=== PATIENT | female | born 1995 | race Caucasian/White ===

== ENCOUNTER 2016-03-12 19:58 | Emergency (ER) | payer BC, OTHER ==
[2016-03-12 20:13] VITALS: RESP 20
[2016-03-12] MEDS ORDERED: IBUPROFEN 600 MG TAB PO STA (20:27)
--- NOTE | 2016-03-12 21:16 | ED ---
URI HPI - General Chief Complaint: Upper Respiratory Infection Stated Complaint: SOB/Chest Pain/Lightheaded Time Seen by Provider: 03/12/16 20:21 Source: patient, RN notes reviewed Mode of arrival: wheelchair Limitations: no limitations - History of Present Illness Initial Comments: 21-year-old female presents to the emergency department with a chief complaint of cough cold runny nose like symptoms. Patient has been sick for the last week or so. She denies any sputum production with the cough but states that she has had some shortness of breath. The patient states she has a history of asthma and she was younger but currently is not being treated for asthma. Patient states that she hasn't had any ear pain or throat pain with this. Patient states she just feels kind of weak and tired. Patient states when she cautious chest pain and back pain. No pain when she is not coughing. Patient states she was concerned because just is not getting better so she thought that she should be evaluated.Patient denies any recent back pain, abdominal pain, nausea vomiting, numbness or tingling, dysuria or hematuria, constipation or diarrhea, headaches or visual changes, or any other current symptoms. - Related Data Previous Rx's Medication Instructions Recorded Benzonatate [Tessalon Perles] 100 mg PO TID #10 cap 03/12/16 Benzonatate [Tessalon Perles] 100 mg PO TID #10 cap 03/12/16 predniSONE 50 mg PO DAILY #3 tab 03/12/16 Allergies Allergy/AdvReac Type Severity Reaction Status Date / Time Penicillins Allergy Anaphylaxis Verified 03/12/16 20:26 Review of Systems ROS Statement: Those systems with pertinent positive or pertinent negative responses have been documented in the HPI. ROS Other: All systems not noted in ROS Statement are negative. Past Medical History Past Medical History: Syncope Additional Past Medical History / Comment(s): back pain started x1 day History of Any Multi-Drug Resistant Organisms: None Reported Past Surgical History: Adenoidectomy, Tonsillectomy Additional Past Surgical History / Comment(s): oral surgery Past Psychological History: Anxiety Smoking Status: Never smoker Past Alcohol Use History: None Reported Past Drug Use History: None Reported General Exam - General Exam Comments Initial Comments: General exam: Alert, active, comfortable in no apparent distress Head: Normocephalic Eyes: Normal reaction of pupils, equal size, normal range of extraocular motion Ears: normal external ear canals, pink tympanic membranes with normal cone of light Nose: clear with pink turbinates Throat: no erythema or exudates with normal sized tonsils Neck: no masses, no nuchal rigidity Chest: no chest wall deformity Lungs: equal air entry with no crackles or wheeze CVS: S1 and S2 normal with no audible mumurs, regular rhythm Abdomen: no hepatosplenomegaly, normal bowel sounds, no guarding or rigidity Spine: no scoliosis or deformity Skin: no rashes Neurological: No focal deficits, tone is normal in all 4 extremities Limitations: no limitations Course Vital Signs 03/12/16 20:08 Temperature 97.1 F L Pulse Rate 75 Respiratory 20 Rate Blood Pressure 135/93 O2 Sat by Pulse 100 Oximetry Medical Decision Making - Medical Decision Making 21-year-old female presents for upper respiratory type symptoms. Patient does appear to have a costochondritis to the wrists due to her chest pain being when she coughs. At this time patient's chest x-ray is reviewed and negative. Extremities she is most likely is having some upper respiratory type infection. We will give her some pills for the cough. Discussed Motrin Tylenol for pain control. We did discuss return parameters and follow-up and using medication as prescribed. Patient stated that she understood all questions have been answered. She will be discharged. - Lab Data Lab Results 03/12/16 Range/Units 20:56 Influenza Type A RNA Not Detected (Not Detectd) Influenza Type B (PCR) Not Detected (Not Detectd) 03/12/16 21:19 Sinus bradycardia 55 bpm, normal axis, no atopy, no S-T depressions or elevations, Disposition Clinical Impression: Upper respiratory infection Disposition: HOME SELF-CARE Condition: Stable Instructions: Upper Respiratory Infection (ED) Additional Instructions: Please use medication as discussed. Please follow up with family doctor if symptoms have not improved over the next two days. Please return to the emergency room if your symptoms increase or worsen or for any other concerns. Prescriptions: Benzonatate [Tessalon Perles] 100 mg PO TID #10 cap Benzonatate [Tessalon Perles] 100 mg PO TID #10 cap predniSONE 50 mg PO DAILY #3 tab Referrals: Richard Guerra MD [Primary Care Provider] - 1-2 days Time of Disposition: 22:32
--- NOTE | 2016-03-12 22:24 | XR ---
EXAMINATION TYPE: XR chest 2V DATE OF EXAM: 03/12/2016 10:00 PM COMPARISON: 02/02/2015 HISTORY: Chest pain TECHNIQUE: Frontal and lateral views of the chest are obtained. FINDINGS: Heart and mediastinum are normal. Lungs are clear. Diaphragm is normal. Bony thorax and so ft tissues appear normal. IMPRESSION: Normal chest. No change.
[2016-03-12 23:14] VITALS: BP 137/84; PULSE 78; TEMP 97.8
== END 2016-03-12 23:14 | disposition home or self-care (01) ==
LOC: EC 19:58
DX: J06.9 Acute upper respiratory infection, unspecified (principal); Z88.0 Allergy status to penicillin
CPT/HCPCS: 71020; 87502; 93005; 99284

== ENCOUNTER 2016-05-11 09:40 | Emergency (ER) | payer BC ==
[2016-05-11] MEDS ORDERED: SODIUM CHLORIDE 0.9% 1,000 ML IV STA (10:30)
[2016-05-11] MEDS ORDERED: KETOROLAC 30 MG/ML 1 ML VIAL IVP STA (10:49)
--- NOTE | 2016-05-11 10:49 | ED ---
General Adult HPI - General Chief complaint: Chest Pain Stated complaint: chest pain Time Seen by Provider: 05/11/16 10:15 Source: patient, RN notes reviewed Mode of arrival: wheelchair Limitations: no limitations - History of Present Illness Initial comments: Patient is a 21-year-old female who presents emergency room today with a chief complaint of chest pain and feeling lightheaded and dizzy. Patient does admit that she had similar symptoms one week ago was seen at [facility] emergency room. Does admit that she had blood work and an x-ray obtained. States they were advised to follow-up with the roughener. States awaiting appointment. States today at work began having chest pain on the right side of her chest. Describes it as sharp. States radiated into the right arm. Does admit some numbness tingling down to her fingertips. States as she was getting here to the hospital the left pain was radiating to the left side. States pain started approximately one hour ago. She admits that she also began to feel little lightheaded and dizzy. She states that one week ago she had an episode where she felt that her color changed with this pain and dizziness. She denies any other complaints or symptoms at this time. Admits to a family history of cardiac disease. Admits to a syncopal episodes in the past. Denies any other past medical history. Denies any medications. Patient denies any recent fever, chills, shortness of breath, back pain, abdominal pain, nausea or vomiting, numbness or tingling, dysuria or hematuria, constipation or diarrhea, headaches or visual changes, or any other complaints. - Related Data Previous Rx's Medication Instructions Recorded Ibuprofen [Motrin] 600 mg PO Q6HR PRN #40 day 05/11/16 predniSONE 40 mg PO DAILY 5 Days 05/11/16 Allergies Allergy/AdvReac Type Severity Reaction Status Date / Time gabapentin [From Neurontin] Allergy Dyspnea Verified 05/11/16 09:54 Penicillins Allergy Anaphylaxis Verified 05/11/16 09:53 Review of Systems ROS Statement: Those systems with pertinent positive or pertinent negative responses have been documented in the HPI. ROS Other: All systems not noted in ROS Statement are negative. Past Medical History Past Medical History: Syncope Additional Past Medical History / Comment(s): back pain started x1 day History of Any Multi-Drug Resistant Organisms: None Reported Past Surgical History: Adenoidectomy, Tonsillectomy Additional Past Surgical History / Comment(s): oral surgery Past Psychological History: Anxiety Smoking Status: Never smoker Past Alcohol Use History: None Reported Past Drug Use History: None Reported General Exam - General Exam Comments Initial Comments: General: The patient is awake and alert, in no distress, and does not appear acutely ill. Eye: Pupils are equal, round and reactive to light, extra-ocular movements are intact. No nystagmus. There is normal conjunctiva bilaterally. No signs of icterus. Ears, nose, mouth and throat: There are moist mucous membranes and no oral lesions. Neck: The neck is supple, there is no tenderness or JVD. Cardiovascular: There is a regular rate and rhythm. No murmur, rub or gallop is appreciated. Pain reproduced on palpation to the anterior chest wall. Respiratory: Lungs are clear to auscultation, respirations are non-labored, breath sounds are equal. No wheezes, stridor, rales, or rhonchi. Gastrointestinal: Soft, non-distended, non-tender abdomen without masses or organomegaly noted. There is no rebound or guarding present. No CVA tenderness. Bowel sounds are unremarkable. Musculoskeletal: Normal ROM, no tenderness. Strength 5/5. Sensation intact. Pulses equal bilaterally 2+. Neurological: A&O x 3. CN II-XII intact, There are no obvious motor or sensory deficits. Coordination appears grossly intact. Speech is normal. Skin: Skin is warm and dry and no rashes or lesions are noted. Psychiatric: Cooperative, appropriate mood & affect, normal judgment. Limitations: no limitations Course Vital Signs 05/11/16 05/11/16 05/11/16 09:41 11:24 13:32 Temperature 97.5 F L Pulse Rate 73 65 73 Respiratory 20 16 16 Rate Blood Pressure 132/90 132/83 116/74 O2 Sat by Pulse 99 99 100 Oximetry EKG Findings - EKG Comments: EKG Findings:: EKG performed at 1043: A 12-lead EKG was performed and interpreted by me as showing the following: Rate is 63, and rhythm is normal sinus. There are normal QRS complexes and normal R-wave progression. ST segments have no elevation or depression, and DE segments appear normal. Repeat EKG performed at 1446: A 12-lead EKG was performed and interpreted by me as showing the following: Rate is 67, and rhythm is normal sinus. There are normal QRS complexes and normal R-wave progression. ST segments have no elevation or depression, and DE segments appear normal. No change from prior Medical Decision Making - Medical Decision Making Patient's labs reviewed are negative. Patient reexamined at this time expressing some pain to the anterior chest wall. It is reproducible on outpatient. Patient's EKG shows normal sinus rhythm. Repeat EKG performed shows no changes. Patient had repeat troponin which is negative. Patient given dose of steroids here in the emergency room for inflammation. Advised follow-up with family doctor and roughener. Advised to continue anti- inflammatories advised return for any other concerns. - Lab Data Result diagrams: 05/11/16 10:00 05/11/16 10:00 Lab Results 05/11/16 05/11/16 05/11/16 Range/Units 10:00 10:00 10:00 WBC 6.5 (4.0-11.0) k/uL RBC 4.75 (3.80-5.40) m/uL Hgb 14.0 (11.4-16.0) gm/dL Hct 39.7 (34.0-46.0) % MCV 83.6 (80.0-100.0) fL MCH 29.4 (25.0-35.0) pg MCHC 35.2 (31.0-37.0) g/dL RDW 13.2 (11.5-15.5) % Plt Count 215 (150-450) k/uL Neutrophils % 62 % Lymphocytes % 28 % Monocytes % 4 % Eosinophils % 3 % Basophils % 1 % Neutrophils # 4.0 (1.3-7.7) k/uL Lymphocytes # 1.8 (1.0-4.8) k/uL Monocytes # 0.3 (0-1.0) k/uL Eosinophils # 0.2 (0-0.7) k/uL Basophils # 0.0 (0-0.2) k/uL PT (9.0-12.0) sec INR (<1.1) APTT (22.0-30.0) sec Sodium 143 (137-145) mmol/L Potassium 4.3 (3.5-5.1) mmol/L Chloride 106 (98-107) mmol/L Carbon Dioxide 25 (22-30) mmol/L Anion Gap 12 mmol/L BUN 9 (7-17) mg/dL Creatinine 0.70 (0.52-1.04) mg/dL Est GFR (MDRD) Af Amer >60 (>60 ml/min/1.73 sqM) Est GFR (MDRD) Non-Af >60 (>60 ml/min/1.73 sqM) Glucose 101 H (74-99) mg/dL Calcium 9.9 (8.4-10.2) mg/dL Magnesium 1.8 (1.6-2.3) mg/dL Total Bilirubin 0.5 (0.2-1.3) mg/dL AST 17 (14-36) U/L ALT 25 (9-52) U/L Alkaline Phosphatase 58 (38-126) U/L Total Creatine Kinase 96 (30-135) U/L CK-MB (CK-2) 0.9 (0.0-2.4) ng/mL CK-MB (CK-2) Rel Index 0.9 Troponin I <0.012 (0.000-0.034) ng/mL Total Protein 7.2 (6.3-8.2) g/dL Albumin 4.4 (3.5-5.0) g/dL Urine Color Urine Appearance (Clear) Urine pH (5.0-8.0) Ur Specific [place] (1.001-1.035) Urine Protein (Negative) Urine Glucose (UA) (Negative) Urine Ketones (Negative) Urine Blood (Negative) Urine Nitrite (Negative) Urine Bilirubin (Negative) Urine Urobilinogen (<2.0) mg/dL Ur Leukocyte Esterase (Negative) Urine HCG, Qual (Not Detectd) 05/11/16 05/11/16 05/11/16 Range/Units 10:00 12:13 12:13 WBC (4.0-11.0) k/uL RBC (3.80-5.40) m/uL Hgb (11.4-16.0) gm/dL Hct (34.0-46.0) % MCV (80.0-100.0) fL MCH (25.0-35.0) pg MCHC (31.0-37.0) g/dL RDW (11.5-15.5) % Plt Count (150-450) k/uL Neutrophils % % Lymphocytes % % Monocytes % % Eosinophils % % Basophils % % Neutrophils # (1.3-7.7) k/uL Lymphocytes # (1.0-4.8) k/uL Monocytes # (0-1.0) k/uL Eosinophils # (0-0.7) k/uL Basophils # (0-0.2) k/uL PT 10.0 (9.0-12.0) sec INR 1.0 (<1.1) APTT 27.4 (22.0-30.0) sec Sodium (137-145) mmol/L Potassium (3.5-5.1) mmol/L Chloride (98-107) mmol/L Carbon Dioxide (22-30) mmol/L Anion Gap mmol/L BUN (7-17) mg/dL Creatinine (0.52-1.04) mg/dL Est GFR (MDRD) Af Amer (>60 ml/min/1.73 sqM) Est GFR (MDRD) Non-Af (>60 ml/min/1.73 sqM) Glucose (74-99) mg/dL Calcium (8.4-10.2) mg/dL Magnesium (1.6-2.3) mg/dL Total Bilirubin (0.2-1.3) mg/dL AST (14-36) U/L ALT (9-52) U/L Alkaline Phosphatase (38-126) U/L Total Creatine Kinase (30-135) U/L CK-MB (CK-2) (0.0-2.4) ng/mL CK-MB (CK-2) Rel Index Troponin I (0.000-0.034) ng/mL Total Protein (6.3-8.2) g/dL Albumin (3.5-5.0) g/dL Urine Color Light Yellow Urine Appearance Clear (Clear) Urine pH 6.5 (5.0-8.0) Ur Specific [place] 1.008 (1.001-1.035) Urine Protein Negative (Negative) Urine Glucose (UA) Negative (Negative) Urine Ketones Negative (Negative) Urine Blood Negative (Negative) Urine Nitrite Negative (Negative) Urine Bilirubin Negative (Negative) Urine Urobilinogen <2.0 (<2.0) mg/dL Ur Leukocyte Esterase Negative (Negative) Urine HCG, Qual Not Detected (Not Detectd) 05/11/16 Range/Units 13:55 WBC (4.0-11.0) k/uL RBC (3.80-5.40) m/uL Hgb (11.4-16.0) gm/dL Hct (34.0-46.0) % MCV (80.0-100.0) fL MCH (25.0-35.0) pg MCHC (31.0-37.0) g/dL RDW (11.5-15.5) % Plt Count (150-450) k/uL Neutrophils % % Lymphocytes % % Monocytes % % Eosinophils % % Basophils % % Neutrophils # (1.3-7.7) k/uL Lymphocytes # (1.0-4.8) k/uL Monocytes # (0-1.0) k/uL Eosinophils # (0-0.7) k/uL Basophils # (0-0.2) k/uL PT (9.0-12.0) sec INR (<1.1) APTT (22.0-30.0) sec Sodium (137-145) mmol/L Potassium (3.5-5.1) mmol/L Chloride (98-107) mmol/L Carbon Dioxide (22-30) mmol/L Anion Gap mmol/L BUN (7-17) mg/dL Creatinine (0.52-1.04) mg/dL Est GFR (MDRD) Af Amer (>60 ml/min/1.73 sqM) Est GFR (MDRD) Non-Af (>60 ml/min/1.73 sqM) Glucose (74-99) mg/dL Calcium (8.4-10.2) mg/dL Magnesium (1.6-2.3) mg/dL Total Bilirubin (0.2-1.3) mg/dL AST (14-36) U/L ALT (9-52) U/L Alkaline Phosphatase (38-126) U/L Total Creatine Kinase (30-135) U/L CK-MB (CK-2) (0.0-2.4) ng/mL CK-MB (CK-2) Rel Index Troponin I <0.012 (0.000-0.034) ng/mL Total Protein (6.3-8.2) g/dL Albumin (3.5-5.0) g/dL Urine Color Urine Appearance (Clear) Urine pH (5.0-8.0) Ur Specific [place] (1.001-1.035) Urine Protein (Negative) Urine Glucose (UA) (Negative) Urine Ketones (Negative) Urine Blood (Negative) Urine Nitrite (Negative) Urine Bilirubin (Negative) Urine Urobilinogen (<2.0) mg/dL Ur Leukocyte Esterase (Negative) Urine HCG, Qual (Not Detectd) Disposition Clinical Impression: Chest wall pain Disposition: HOME SELF-CARE Condition: Good Instructions: Chest Pain (ED) Additional Instructions: Please use medication as discussed. Please follow-up with family doctor in the next 2 days. Please return to emergency room if the symptoms increase or worsen or for any other concerns. Prescriptions: Ibuprofen [Motrin] 600 mg PO Q6HR PRN #40 day PRN Reason: Pain predniSONE 40 mg PO DAILY 5 Days Time of Disposition: 15:02
[2016-05-11 11:14] LABS: Basophils % (A) 1 %; CH 29.7; CHCM 35.7; Eosinophils # (A) 0.2 k/uL (0-0.7); Eosinophils % (A) 3 %; HCT 39.7 % (34.0-46.0); HDW 3.15; Luc # (Auto) 0.16; Luc % (Auto) 3; Lymphocytes # (A) 1.8 k/uL (1.0-4.8); Lymphocytes % (A) 28 %; MCH 29.4 pg (25.0-35.0); MCHC 35.2 g/dL (31.0-37.0); MCV 83.6 fL (80.0-100.0); Monocytes # (A) 0.3 k/uL (0-1.0); Monocytes % (A) 4 %; Neutrophils % (A) 62 %; RBC 4.75 m/uL (3.80-5.40); RDW 13.2 % (11.5-15.5); WBC 6.5 k/uL (4.0-11.0); WBC (Perox) 6.63
[2016-05-11 11:24] LABS: ALT 25 U/L (9-52); AST 17 U/L (14-36); Alkaline Phosphatase 58 U/L (38-126); Anion Gap 12 mmol/L; Blood Urea Nitrogen 9 mg/dL (7-17); Calcium 9.9 mg/dL (8.4-10.2); Carbon Dioxide 25 mmol/L (22-30); Chloride 106 mmol/L (98-107); Glucose 101 mg/dL (74-99); Magnesium 1.8 mg/dL (1.6-2.3); Non-African American GFR(MDRD) >60 (>60 ml/min/1.73 sqM); Partial Thromboplastin Time 27.4 sec (22.0-30.0); Potassium 4.3 mmol/L (3.5-5.1); Sodium 143 mmol/L (137-145); Total Bilirubin 0.5 mg/dL (0.2-1.3); Total Protein 7.2 g/dL (6.3-8.2)
--- NOTE | 2016-05-11 11:37 | XR ---
EXAMINATION TYPE: XR chest 2V DATE OF EXAM: 05/11/2016 11:34 AM COMPARISON: Prior chest x-ray February HISTORY: Chest pain TECHNIQUE: Frontal and lateral views of the chest are obtained. FINDINGS: There is no focal air space opacity, pleural effusion, or pneumothorax seen. The cardiac silhouette size is within normal limits. There are overlying cardiac leads. There is mild spinal cu rvature. The osseous structures are intact. IMPRESSION: No acute cardiopulmonary process.
[2016-05-11 11:40] LABS: Creatine Kinase 96 U/L (30-135)
[2016-05-11 11:53] LABS: Creatine Kinase MB 0.9 ng/mL (0.0-2.4); Troponin I <0.012 ng/mL (0.000-0.034)
[2016-05-11 12:21] LABS: Appearance,Urine Clear (Clear); Bilirubin,Urine Negative (Negative); Glucose,Urine (UA) Negative (Negative); Ketones,Urine Negative (Negative); Leukocyte Esterase,Urine Negative (Negative); Nitrite,Urine Negative (Negative); PH, Urine 6.5 (5.0-8.0); Protein,Urine Negative (Negative); Specific Gravity,Urine 1.008 (1.001-1.035); UA Billing (MACRO vs. MICRO) CHEM; Urobilinogen,Urine <2.0 mg/dL (<2.0)
[2016-05-11] MEDS ORDERED: methylPREDNISolone SOD SUCCI 125 MG/2 ML VIAL IV STA (15:02)
[2016-05-11 15:23] VITALS: BP 143/89; PULSE 67; RESP 18; TEMP 98.7
== END 2016-05-11 15:23 | disposition home or self-care (01) ==
LOC: EC 09:40
DX: R07.89 Other chest pain (principal); R42 Dizziness and giddiness; R20.0 Anesthesia of skin; R20.2 Paresthesia of skin; Z88.0 Allergy status to penicillin; Z88.8 Allergy status to other drugs, medicaments and biological substances; Z82.49 Family history of ischemic heart disease and other diseases of the circulatory system
CPT/HCPCS: 36415; 93005; 80053; 82550; 82553; 83735; 84484; 85025; 85610; 85730; 81003; 81025; 71020; 99285; 96374; 96375; 96361 ×2; J2930; J1885

== ENCOUNTER 2016-11-17 10:43 | Emergency (ER) | payer BC, OTHER ==
[2016-11-17 11:00] VITALS: TEMP 98
[2016-11-17] MEDS ORDERED: SODIUM CHLORIDE 0.9% 1,000 ML IV STA (11:13)
--- NOTE | 2016-11-17 11:28 | ED ---
General Adult HPI - General Chief complaint: Abdominal Pain Stated complaint: abdominal pain (5 wks ) Time Seen by Provider: 11/17/16 11:08 Source: patient, RN notes reviewed Mode of arrival: ambulatory Limitations: no limitations - History of Present Illness Initial comments: 21-year-old female presents to the emergency Department chief complaint of epigastric abdominal discomfort after vomiting. Patient states that she woke up this morning and vomited once. She is early denies any lower abdominal pain any vaginal bleeding or cramping. She is a . Patient states she was concerned because and she vomited it seemed dark in color he thought maybe be flaccid she thought that she should be seen. Patient has not had vomiting since. She does admit to some mild nausea. Patient states that she is not currently having any other symptoms. Patient denies any recent fever , chills, shortness of breath, chest pain, back pain,numbness or tingling, dysuria or hematuria, constipation or diarrhea, headaches or visual changes, or any other current symptoms. - Related Data Home Medications Medication Instructions Recorded Confirmed [id number] Acid 2 cap PO DAILY 11/17/16 11/17/16 [-U Capsule (formulary)] Previous Rx's Medication Instructions Recorded Nitrofurantoin Macrocrystal 100 mg PO BID #14 cap 11/17/16 [Macrodantin] Allergies Allergy/AdvReac Type Severity Reaction Status Date / Time gabapentin [From Neurontin] Allergy Dyspnea Verified 11/17/16 11:11 Penicillins Allergy Anaphylaxis Verified 11/17/16 11:11 Review of Systems ROS Statement: Those systems with pertinent positive or pertinent negative responses have been documented in the HPI. ROS Other: All systems not noted in ROS Statement are negative. Past Medical History Past Medical History: Syncope Additional Past Medical History / Comment(s): back pain started x1 day History of Any Multi-Drug Resistant Organisms: None Reported Past Surgical History: Adenoidectomy, Tonsillectomy Additional Past Surgical History / Comment(s): oral surgery Past Psychological History: Anxiety Smoking Status: Never smoker Past Alcohol Use History: None Reported Past Drug Use History: None Reported General Exam - General Exam Comments Initial Comments: General: The patient is awake and alert, in no distress, and does not appear acutely ill. Eye: Pupils are equal, round and reactive to light, extra-ocular movements are intact; there is normal conjunctiva bilaterally. No signs of icterus. Ears, nose, mouth and throat: There are moist mucous membranes. Neck: The neck is supple, there is no tenderness. Cardiovascular: There is a regular rate and rhythm. No murmur, rub or gallop is appreciated. Respiratory: Lungs are clear to auscultation, respirations are non-labored, breath sounds are equal. No wheezes, stridor, rales, or rhonchi. Gastrointestinal: Soft, non-distended, non-tender abdomen without masses or organomegaly noted. There is no rebound or guarding present. No CVA tenderness. Bowel sounds are unremarkable. Back: There is no tenderness to palpation in the midline. There is no obvious deformity. No rashes noted. Musculoskeletal: Normal ROM, no tenderness, There is no pedal edema. There is no calf tenderness or swelling. Sensation intact. Pulses equal bilaterally 2+. Neurological: CN II-XII intact, There are no obvious motor or sensory deficits. Coordination appears grossly intact. Speech is normal. Skin: Skin is warm and dry and no rashes or lesions are noted. Psychiatric: Cooperative, appropriate mood & affect, normal judgment. Limitations: no limitations Course Vital Signs 11/17/16 10:57 Temperature 98 F Pulse Rate 72 Respiratory 18 Rate Blood Pressure 135/98 O2 Sat by Pulse 100 Oximetry Medical Decision Making - Medical Decision Making 21-year-old female presents for nausea vomiting in . This time patient 's blood work is reviewed there is concern for UTI which could explain the patient nausea. At this time we'll put her on antibiotics. We discussed follow -up with her OB and return parameters all patient's questions. She states she understood and she is in agreement plan. This time she'll be discharged. - Lab Data Result diagrams: 11/17/16 11:40 11/17/16 11:40 Lab Results 11/17/16 11/17/16 11/17/16 Range/Units 11:40 11:40 11:40 WBC 7.2 (4.0-11.0) k/uL RBC 4.61 (3.80-5.40) m/uL Hgb 13.7 (11.4-16.0) gm/dL Hct 39.9 (34.0-46.0) % MCV 86.5 (80.0-100.0) fL MCH 29.7 (25.0-35.0) pg MCHC 34.3 (31.0-37.0) g/dL RDW 13.7 (11.5-15.5) % Plt Count 215 (150-450) k/uL Neutrophils % 68 % Lymphocytes % 24 % Monocytes % 4 % Eosinophils % 2 % Basophils % 0 % Neutrophils # 4.9 (1.3-7.7) k/uL Lymphocytes # 1.7 (1.0-4.8) k/uL Monocytes # 0.3 (0-1.0) k/uL Eosinophils # 0.2 (0-0.7) k/uL Basophils # 0.0 (0-0.2) k/uL Sodium 137 (137-145) mmol/L Potassium 3.8 (3.5-5.1) mmol/L Chloride 107 (98-107) mmol/L Carbon Dioxide 19 L (22-30) mmol/L Anion Gap 11 mmol/L BUN 7 (7-17) mg/dL Creatinine 0.62 (0.52-1.04) mg/dL Est GFR (MDRD) Af Amer >60 (>60 ml/min/1.73 sqM) Est GFR (MDRD) Non-Af >60 (>60 ml/min/1.73 sqM) Glucose 89 (74-99) mg/dL Calcium 9.3 (8.4-10.2) mg/dL Total Bilirubin 0.7 (0.2-1.3) mg/dL AST 15 (14-36) U/L ALT 31 (9-52) U/L Alkaline Phosphatase 53 (38-126) U/L Total Protein 6.7 (6.3-8.2) g/dL Albumin 4.0 (3.5-5.0) g/dL HCG, Quant 44099.2 mIU/mL Urine Color Yellow Urine Appearance Cloudy H (Clear) Urine pH 7.5 (5.0-8.0) Ur Specific [place] 1.017 (1.001-1.035) Urine Protein Trace H (Negative) Urine Glucose (UA) Negative (Negative) Urine Ketones Negative (Negative) Urine Blood Negative (Negative) Urine Nitrite Negative (Negative) Urine Bilirubin Negative (Negative) Urine Urobilinogen <2.0 (<2.0) mg/dL Ur Leukocyte Esterase Large H (Negative) Urine RBC 7 H (0-5) /hpf Urine WBC 3 (0-5) /hpf Ur Squamous Epith Cells 11 H (0-4) /hpf Urine Bacteria Rare H (None) /hpf Urine Mucus Rare H (None) /hpf Blood Type Blood Type Recheck 11/17/16 Range/Units 11:40 WBC (4.0-11.0) k/uL RBC (3.80-5.40) m/uL Hgb (11.4-16.0) gm/dL Hct (34.0-46.0) % MCV (80.0-100.0) fL MCH (25.0-35.0) pg MCHC (31.0-37.0) g/dL RDW (11.5-15.5) % Plt Count (150-450) k/uL Neutrophils % % Lymphocytes % % Monocytes % % Eosinophils % % Basophils % % Neutrophils # (1.3-7.7) k/uL Lymphocytes # (1.0-4.8) k/uL Monocytes # (0-1.0) k/uL Eosinophils # (0-0.7) k/uL Basophils # (0-0.2) k/uL Sodium (137-145) mmol/L Potassium (3.5-5.1) mmol/L Chloride (98-107) mmol/L Carbon Dioxide (22-30) mmol/L Anion Gap mmol/L BUN (7-17) mg/dL Creatinine (0.52-1.04) mg/dL Est GFR (MDRD) Af Amer (>60 ml/min/1.73 sqM) Est GFR (MDRD) Non-Af (>60 ml/min/1.73 sqM) Glucose (74-99) mg/dL Calcium (8.4-10.2) mg/dL Total Bilirubin (0.2-1.3) mg/dL AST (14-36) U/L ALT (9-52) U/L Alkaline Phosphatase (38-126) U/L Total Protein (6.3-8.2) g/dL Albumin (3.5-5.0) g/dL HCG, Quant mIU/mL Urine Color Urine Appearance (Clear) Urine pH (5.0-8.0) Ur Specific [place] (1.001-1.035) Urine Protein (Negative) Urine Glucose (UA) (Negative) Urine Ketones (Negative) Urine Blood (Negative) Urine Nitrite (Negative) Urine Bilirubin (Negative) Urine Urobilinogen (<2.0) mg/dL Ur Leukocyte Esterase (Negative) Urine RBC (0-5) /hpf Urine WBC (0-5) /hpf Ur Squamous Epith Cells (0-4) /hpf Urine Bacteria (None) /hpf Urine Mucus (None) /hpf Blood Type A Negative Blood Type Recheck No Disposition Clinical Impression: Nausea & vomiting, UTI (urinary tract infection) Disposition: HOME SELF-CARE Condition: Stable Instructions: Urinary Tract Infection in Women (ED), Nausea and Vomiting in (ED) Additional Instructions: Please use medication as discussed. Please follow up with family doctor if symptoms have not improved over the next two days. Please return to the emergency room if your symptoms increase or worsen or for any other concerns. Prescriptions: Nitrofurantoin Macrocrystal [Macrodantin] 100 mg PO BID #14 cap Referrals: Richard Guerra MD [Primary Care Provider] - 1-2 days Time of Disposition: 12:56
[2016-11-17 11:57] LABS: Basophils % (A) 0 %; CH 29.9; CHCM 34.7; Eosinophils # (A) 0.2 k/uL (0-0.7); Eosinophils % (A) 2 %; HCT 39.9 % (34.0-46.0); HDW 2.93; HGB 13.7 gm/dL (11.4-16.0); Luc # (Auto) 0.11; Luc % (Auto) 2; Lymphocytes # (A) 1.7 k/uL (1.0-4.8); Lymphocytes % (A) 24 %; MCH 29.7 pg (25.0-35.0); MCHC 34.3 g/dL (31.0-37.0); MCV 86.5 fL (80.0-100.0); Mean Platelet Volume 7.9; Monocytes # (A) 0.3 k/uL (0-1.0); Monocytes % (A) 4 %; Neutrophils # (A) 4.9 k/uL (1.3-7.7); Neutrophils % (A) 68 %; RBC 4.61 m/uL (3.80-5.40); RDW 13.7 % (11.5-15.5); WBC 7.2 k/uL (4.0-11.0); WBC (Perox) 7.35
[2016-11-17 12:06] LABS: ALT 31 U/L (9-52); AST 15 U/L (14-36); Alkaline Phosphatase 53 U/L (38-126); Anion Gap 11 mmol/L; Blood Urea Nitrogen 7 mg/dL (7-17); Calcium 9.3 mg/dL (8.4-10.2); Carbon Dioxide 19 mmol/L (22-30); Chloride 107 mmol/L (98-107); Glucose 89 mg/dL (74-99); Non-African American GFR(MDRD) >60 (>60 ml/min/1.73 sqM); Potassium 3.8 mmol/L (3.5-5.1); Sodium 137 mmol/L (137-145); Total Bilirubin 0.7 mg/dL (0.2-1.3); Total Protein 6.7 g/dL (6.3-8.2)
[2016-11-17 12:08] LABS: Appearance,Urine Cloudy (Clear); Bacteria,Urine Rare /hpf; Bilirubin,Urine Negative (Negative); Glucose,Urine (UA) Negative (Negative); Ketones,Urine Negative (Negative); Leukocyte Esterase,Urine Large (Negative); Mucus,Urine Rare /hpf; Nitrite,Urine Negative (Negative); PH, Urine 7.5 (5.0-8.0); Particle Count 12760; Protein,Urine Trace (Negative); RBC,Urine 7 /hpf (0-5); Specific Gravity,Urine 1.017 (1.001-1.035); Squamous Epithelial Cell,Urine 11 /hpf (0-4); UA Billing (MACRO vs. MICRO) MICRO; Urobilinogen,Urine <2.0 mg/dL (<2.0); WBC,Urine 3 /hpf (0-5)
[2016-11-17 13:18] VITALS: BP 129/86; PULSE 70; RESP 16
== END 2016-11-17 13:17 | disposition home or self-care (01) ==
LOC: EC 10:43
DX: O21.9 Vomiting of pregnancy, unspecified (principal); O23.41 Unspecified infection of urinary tract in pregnancy, first trimester; Z79.899 Other long term (current) drug therapy; Z88.0 Allergy status to penicillin; Z88.8 Allergy status to other drugs, medicaments and biological substances; Z3A.01 Less than 8 weeks gestation of pregnancy
CPT/HCPCS: 36415; 80053; 81001; 84702; 85025; 86900; 86901; 87086; 96360; 96361; 99284

== ENCOUNTER 2017-01-02 23:03 | Emergency (ER) | payer BC ==
[2017-01-02 23:22] VITALS: RESP 18
[2017-01-02] MEDS ORDERED: SODIUM CHLORIDE 0.9% 1,000 ML IV STA (23:34)
[2017-01-02] MEDS ORDERED: ACETAMINOPHEN TAB 325 MG TAB PO STA (23:42)
[2017-01-02 23:59] LABS: Basophils % (A) 0 %; CHCM 34.2; Eosinophils # (A) 0.1 k/uL (0-0.7); Eosinophils % (A) 1 %; HCT 34.3 % (34.0-46.0); HDW 2.99; HGB 11.7 gm/dL (11.4-16.0); Luc # (Auto) 0.06; Luc % (Auto) 1; Lymphocytes # (A) 1.4 k/uL (1.0-4.8); Lymphocytes % (A) 18 %; MCH 29.1 pg (25.0-35.0); MCHC 34.2 g/dL (31.0-37.0); Mean Platelet Volume 8.8; Monocytes # (A) 0.3 k/uL (0-1.0); Monocytes % (A) 4 %; Neutrophils # (A) 5.9 k/uL (1.3-7.7); Neutrophils % (A) 76 %; RBC 4.04 m/uL (3.80-5.40); RDW 14.4 % (11.5-15.5); WBC 7.7 k/uL (4.0-11.0); WBC (Perox) 7.98
[2017-01-03 00:07] LABS: ALT 31 U/L (9-52); AST 15 U/L (14-36); Alkaline Phosphatase 64 U/L (38-126); Anion Gap 7 mmol/L; Blood Urea Nitrogen 10 mg/dL (7-17); Calcium 9.2 mg/dL (8.4-10.2); Carbon Dioxide 23 mmol/L (22-30); Chloride 106 mmol/L (98-107); Glucose 91 mg/dL (74-99); Non-African American GFR(MDRD) >60 (>60 ml/min/1.73 sqM); Potassium 3.8 mmol/L (3.5-5.1); Sodium 136 mmol/L (137-145); Total Bilirubin 0.5 mg/dL (0.2-1.3); Total Protein 6.1 g/dL (6.3-8.2)
[2017-01-03 00:10] LABS: Glucose,Whole Blood 91 mg/dL (75-99)
[2017-01-03 00:28] LABS: Appearance,Urine Cloudy (Clear); Bacteria,Urine Rare /hpf; Bilirubin,Urine Negative (Negative); Glucose,Urine (UA) Negative (Negative); Ketones,Urine 1+ (Negative); Leukocyte Esterase,Urine Small (Negative); Mucus,Urine Few /hpf; Nitrite,Urine Negative (Negative); PH, Urine 5.5 (5.0-8.0); Particle Count 7823; Protein,Urine Trace (Negative); RBC,Urine 2 /hpf (0-5); Specific Gravity,Urine 1.015 (1.001-1.035); Squamous Epithelial Cell,Urine 2 /hpf (0-4); UA Billing (MACRO vs. MICRO) MICRO; WBC,Urine 5 /hpf (0-5)
--- NOTE | 2017-01-03 01:19 | ED ---
Syncope HPI - General Chief Complaint: Syncope Stated Complaint: Syncope Time Seen by Provider: 01/02/17 23:05 Source: patient, EMS Mode of arrival: EMS Limitations: no limitations - History of Present Illness Initial Comments: 21-year-old female patient presents to the emergency department today for evaluation after experiencing a syncopal episode at work. Patient states that around 10:30 she was standing and a small room with a bunch of people for a work meeting. States that she suddenly became hot, and felt her vision clouding. She states next thing she knew she woke up on the floor. Bystanders state that she was assisted to the floor by another employee. It is unclear whether or not she hit anything on the way down. Patient is complaining of posterior head pain as well as left sided abdominal pain. Patient denies any current headache, dizziness, blurred vision, double vision, nausea, vomiting, or back pain. She denies any chest pain, shortness of breath, numbness, tingling, or weakness. Patient denies any recent rash, fever, chills, diarrhea, constipation, hematuria, dysuria, urinary urgency, urinary frequency, headache, visual changes, or any other complaints. - Related Data Home Medications Medication Instructions Recorded Confirmed [id number] Acid 1 cap PO DAILY 11/17/16 01/02/17 [-U Capsule (formulary)] Acetaminophen [Tylenol] 325 mg PO Q4H PRN 01/02/17 01/02/17 Allergies Allergy/AdvReac Type Severity Reaction Status Date / Time gabapentin [From Neurontin] Allergy Anaphylaxis Verified 01/02/17 23:12 Penicillins Allergy Swelling Verified 01/02/17 23:12 Sulfa (Sulfonamide AdvReac Unknown Verified 01/02/17 23:12 Antibiotics) Review of Systems ROS Statement: Those systems with pertinent positive or pertinent negative responses have been documented in the HPI. ROS Other: All systems not noted in ROS Statement are negative. Past Medical History Past Medical History: Syncope Additional Past Medical History / Comment(s): back pain started x1 day History of Any Multi-Drug Resistant Organisms: None Reported Past Surgical History: Adenoidectomy, Tonsillectomy Additional Past Surgical History / Comment(s): oral surgery Past Psychological History: No Psychological Hx Reported Smoking Status: Never smoker Past Alcohol Use History: None Reported Past Drug Use History: None Reported General Exam Limitations: no limitations General appearance: alert, in no apparent distress, other (This is a well- developed, well-nourished adult female patient in no acute distress. Vital signs upon presentation were pulse 81, respirations 18, blood pressure 142/75, pulse ox 99% on room air.) Head exam: Present: atraumatic, normocephalic, normal inspection, other ( Posterior scalp tenderness, no evidence of abrasion or laceration or hematoma.) Eye exam: Present: normal appearance, PERRL, EOMI. Absent: scleral icterus, conjunctival injection, periorbital swelling ENT exam: Present: normal exam, normal oropharynx, mucous membranes moist, TM's normal bilaterally Neck exam: Present: normal inspection, full ROM, other (Nontender, no step-off, no deformity to firm midline palpation of the posterior cervical spine. Full range of motion without pain or limitation.). Absent: tenderness, meningismus, lymphadenopathy Respiratory exam: Present: normal lung sounds bilaterally. Absent: respiratory distress, wheezes, rales, rhonchi, stridor Cardiovascular Exam: Present: regular rate, normal rhythm, normal heart sounds. Absent: systolic murmur, diastolic murmur, rubs, gallop, clicks GI/Abdominal exam: Present: soft, tenderness (Mild superficial tenderness to the left upper quadrant), normal bowel sounds, other (No evidence of ecchymosis , surface trauma, or abrasions to the abdomen.). Absent: distended, guarding, rebound, rigid Extremities exam: Present: normal inspection, full ROM, normal capillary refill. Absent: tenderness, pedal edema, joint swelling, calf tenderness Back exam: Present: normal inspection, other (Nontender, no step-off, no deformity to firm midline palpation of the thoracic and lumbar vertebrae. Full range of motion without pain or limitation.). Absent: tenderness, vertebral tenderness Neurological exam: Present: alert, oriented X3, CN II-XII intact, other ( Strength in all 4 extremities is 5/5.) Psychiatric exam: Present: normal affect, normal mood Skin exam: Present: warm, dry, intact, normal color. Absent: rash Course Vital Signs 01/02/17 01/02/17 01/02/17 23:13 23:55 23:57 Temperature Pulse Rate 81 81 Pulse Rate [ 75 Sitting Division Toll Wire Chief] Pulse Rate [ 76 Standing Division Toll Wire Chief ] Pulse Rate [ 76 Supine Division Toll Wire Chief] Respiratory 18 18 Rate Blood Pressure 142/75 139/82 Blood Pressure 137/82 [Sitting] Blood Pressure 142/85 [Standing] Blood Pressure 139/82 [Supine] O2 Sat by Pulse 99 98 Oximetry 01/03/17 02:24 Temperature 98.4 F Pulse Rate 68 Pulse Rate [ Sitting Division Toll Wire Chief] Pulse Rate [ Standing Division Toll Wire Chief ] Pulse Rate [ Supine Division Toll Wire Chief] Respiratory 18 Rate Blood Pressure 122/61 Blood Pressure [Sitting] Blood Pressure [Standing] Blood Pressure [Supine] O2 Sat by Pulse 98 Oximetry EKG Findings - EKG Comments: EKG Findings:: EKG obtained at 2344 shows normal sinus rhythm with a sinus arrhythmia. Ventricular rate is 69 bpm, MA interval 150, QRS duration 88, QT 388, QTC 415. No evidence of ST elevation or depression. Medical Decision Making - Medical Decision Making 21-year-old female patient presented for evaluation after experiencing a syncopal episode today while at work. Patient is 13 weeks . Upon arrival she was complaining of posterior scalp pain and left-sided abdominal pain. Physical examination is unremarkable. Patient was neurologically intact. She is not having any neck or back tenderness. During visit patient did not have any vaginal bleeding or discharge. We did attempt to have a nurse from labor and delivery find heart tones however she was unable to at this early date. We did perform ultrasound which showed a viable intrauterine , no abnormalities, and a heart rate of 164. Labs were reviewed and were over all unremarkable however urine did show ketones and she did have a sodium level 136. Patient reported during initial history that she has had multiple syncopal episodes since being in the 10th grade. She has had workup from her drainage inspector and neurologist. She does have an appointment with her drainage inspector at the beginning of January. I did discuss the findings with her. Patient was able to ambulate without difficulty in the department. She feels comfortable being discharged at this time. She is instructed to increase her fluid intake. She is instructed to follow-up with her primary care physician for recheck in 1-2 days. She is instructed to keep her appointment with the drainage inspector. She is instructed to return here immediate for any new, worsening, or concerning symptoms. She verbalizes understanding and agrees with this plan. - Lab Data Result diagrams: 01/02/17 23:48 01/02/17 23:48 Lab Results 01/02/17 01/02/17 01/03/17 Range/Units 23:48 23:48 00:08 WBC 7.7 (4.0-11.0) k/uL RBC 4.04 (3.80-5.40) m/uL Hgb 11.7 (11.4-16.0) gm/dL Hct 34.3 (34.0-46.0) % MCV 85.0 (80.0-100.0) fL MCH 29.1 (25.0-35.0) pg MCHC 34.2 (31.0-37.0) g/dL RDW 14.4 (11.5-15.5) % Plt Count 222 (150-450) k/uL Neutrophils % 76 % Lymphocytes % 18 % Monocytes % 4 % Eosinophils % 1 % Basophils % 0 % Neutrophils # 5.9 (1.3-7.7) k/uL Lymphocytes # 1.4 (1.0-4.8) k/uL Monocytes # 0.3 (0-1.0) k/uL Eosinophils # 0.1 (0-0.7) k/uL Basophils # 0.0 (0-0.2) k/uL Sodium 136 L (137-145) mmol/L Potassium 3.8 (3.5-5.1) mmol/L Chloride 106 (98-107) mmol/L Carbon Dioxide 23 (22-30) mmol/L Anion Gap 7 mmol/L BUN 10 (7-17) mg/dL Creatinine 0.60 (0.52-1.04) mg/dL Est GFR (MDRD) Af Amer >60 (>60 ml/min/1.73 sqM) Est GFR (MDRD) Non-Af >60 (>60 ml/min/1.73 sqM) Glucose 91 (74-99) mg/dL POC Glucose (mg/dL) (75-99) mg/dL POC Glu Second Mate ID Calcium 9.2 (8.4-10.2) mg/dL Total Bilirubin 0.5 (0.2-1.3) mg/dL AST 15 (14-36) U/L ALT 31 (9-52) U/L Alkaline Phosphatase 64 (38-126) U/L Total Protein 6.1 L (6.3-8.2) g/dL Albumin 3.5 (3.5-5.0) g/dL Urine Color Yellow Urine Appearance Cloudy H (Clear) Urine pH 5.5 (5.0-8.0) Ur Specific [place] 1.015 (1.001-1.035) Urine Protein Trace H (Negative) Urine Glucose (UA) Negative (Negative) Urine Ketones 1+ H (Negative) Urine Blood Negative (Negative) Urine Nitrite Negative (Negative) Urine Bilirubin Negative (Negative) Urine Urobilinogen 2.0 (<2.0) mg/dL Ur Leukocyte Esterase Small H (Negative) Urine RBC 2 (0-5) /hpf Urine WBC 5 (0-5) /hpf Ur Squamous Epith Cells 2 (0-4) /hpf Urine Bacteria Rare H (None) /hpf Urine Mucus Few H (None) /hpf 01/03/17 Range/Units 00:08 WBC (4.0-11.0) k/uL RBC (3.80-5.40) m/uL Hgb (11.4-16.0) gm/dL Hct (34.0-46.0) % MCV (80.0-100.0) fL MCH (25.0-35.0) pg MCHC (31.0-37.0) g/dL RDW (11.5-15.5) % Plt Count (150-450) k/uL Neutrophils % % Lymphocytes % % Monocytes % % Eosinophils % % Basophils % % Neutrophils # (1.3-7.7) k/uL Lymphocytes # (1.0-4.8) k/uL Monocytes # (0-1.0) k/uL Eosinophils # (0-0.7) k/uL Basophils # (0-0.2) k/uL Sodium (137-145) mmol/L Potassium (3.5-5.1) mmol/L Chloride (98-107) mmol/L Carbon Dioxide (22-30) mmol/L Anion Gap mmol/L BUN (7-17) mg/dL Creatinine (0.52-1.04) mg/dL Est GFR (MDRD) Af Amer (>60 ml/min/1.73 sqM) Est GFR (MDRD) Non-Af (>60 ml/min/1.73 sqM) Glucose (74-99) mg/dL POC Glucose (mg/dL) 91 (75-99) mg/dL POC Glu Second Mate ID Alley Hdez Calcium (8.4-10.2) mg/dL Total Bilirubin (0.2-1.3) mg/dL AST (14-36) U/L ALT (9-52) U/L Alkaline Phosphatase (38-126) U/L Total Protein (6.3-8.2) g/dL Albumin (3.5-5.0) g/dL Urine Color Urine Appearance (Clear) Urine pH (5.0-8.0) Ur Specific [place] (1.001-1.035) Urine Protein (Negative) Urine Glucose (UA) (Negative) Urine Ketones (Negative) Urine Blood (Negative) Urine Nitrite (Negative) Urine Bilirubin (Negative) Urine Urobilinogen (<2.0) mg/dL Ur Leukocyte Esterase (Negative) Urine RBC (0-5) /hpf Urine WBC (0-5) /hpf Ur Squamous Epith Cells (0-4) /hpf Urine Bacteria (None) /hpf Urine Mucus (None) /hpf - Radiology Data Radiology results: report reviewed, image reviewed Ultrasound of the fetus was obtained, impression by Dr. Dunn did show no free fluid in the adnexa, no subchorionic bleed, there was an viable intrauterine with a gestational age of 13 weeks 1 day. There is satisfactory growth compared to last exam. I see no complicating process. Heart rate was 162 bpm. Disposition Clinical Impression: Syncope Disposition: HOME SELF-CARE Condition: Good Instructions: Syncope (ED) Additional Instructions: Increase fluids. Follow-up with her primary care physician for reevaluation. Follow-up with your drainage inspector as you have planned. Return here immediately for any new, worsening, or concerning symptoms. Referrals: Richard Guerra MD [Primary Care Provider] - 1-2 days Time of Disposition: 02:12
[2017-01-03 02:25] VITALS: TEMP 98.4
[2017-01-03 02:45] VITALS: BP 139/82; PULSE 76
--- NOTE | 2017-01-03 10:01 | US ---
EXAMINATION TYPE: US OB <= 14 wk fetus DATE OF EXAM: 01/03/2017 COMPARISON: 12/13/2016 CLINICAL HISTORY: Pain. syncope EXAM PERFORMED: Transabdominal (TA) EXAM MEASUREMENTS: GESTATIONAL AGE / DATING Physician Established: (13 weeks/3 days) EDC: 07/08/2017 Dates by LMP: (13 weeks/3 days) EDC: 07/08/2017 Dates by First Scan: (10 weeks/5 days) EDC: 07/06/2017 Dates by Current Scan for: (13 weeks/1 days) EDC: 07/10/2017 MATERNAL ANATOMY Uterus: 13.8 x 9.0 x 9.0cm Right Ovary: 3.4 x 1.4 x 1.6cm Left Ovary: 1.0 x 2.1 x 2.8cm Post CDS / Adnexa: wnl Presence of free fluid: no Presence of corpus luteal cyst: no Presence of subchorionic bleed: no GESTATION / SURVEY CRL: 6.8 (13 weeks/1 days) Heart Rate: 162 bpm Rhythm: Normal IUP: Viable IUP Beta HcG (if available): Not available at this time Viable IUP 13w1d TRAY 07/10/2017 HR 162 BPM IMPRESSION: The ultrasound gestational age is 13 weeks 1 day. There is satisfactory growth compared to last exam. I see no complicating process.
== END 2017-01-03 02:23 | disposition home or self-care (01) ==
LOC: EC 23:03
DX: O26.891 Other specified pregnancy related conditions, first trimester (principal); R55 Syncope and collapse; O99.89 Other specified diseases and conditions complicating pregnancy, childbirth and the puerperium; R82.4 Acetonuria; R10.9 Unspecified abdominal pain; Z79.899 Other long term (current) drug therapy; Z88.0 Allergy status to penicillin; Z88.2 Allergy status to sulfonamides; Z88.8 Allergy status to other drugs, medicaments and biological substances; Z3A.13 13 weeks gestation of pregnancy
CPT/HCPCS: 36415; 76801; 80053; 81001; 85025; 87086; 93005; 96360; 99284

== ENCOUNTER 2018-04-06 00:12 | Emergency (ER) | payer BC, OTHER ==
[2018-04-06] MEDS ORDERED: SODIUM CHLORIDE 0.9% 1,000 ML IV STA (00:24)
[2018-04-06 00:36] LABS: Glucose,Whole Blood 105 mg/dL (75-99)
[2018-04-06 00:38] LABS: Basophils # (A) 0.1 k/uL (0-0.2); Basophils % (A) 1 %; Eosinophils # (A) 0.3 k/uL (0-0.7); Eosinophils % (A) 3 %; HGB 13.8 gm/dL (11.4-16.0); Lymphocytes # (A) 2.2 k/uL (1.0-4.8); Lymphocytes % (A) 25 %; MCH 29.2 pg (25.0-35.0); MCHC 33.6 g/dL (31.0-37.0); MCV 86.9 fL (80.0-100.0); Mean Platelet Volume 7.7; Monocytes # (A) 0.4 k/uL (0-1.0); Monocytes % (A) 4 %; Neutrophils # (A) 5.7 k/uL (1.3-7.7); Neutrophils % (A) 65 %; Platelet Count 223 k/uL (150-450); RBC 4.72 m/uL (3.80-5.40); RDW 13.6 % (11.5-15.5); WBC 8.7 k/uL (3.8-10.6)
[2018-04-06 00:47] LABS: ALT 24 U/L (9-52); AST 18 U/L (14-36); Albumin 4.3 g/dL (3.5-5.0); Alkaline Phosphatase 48 U/L (38-126); Anion Gap 12 mmol/L; Blood Urea Nitrogen 13 mg/dL (7-17); Calcium 9.8 mg/dL (8.4-10.2); Carbon Dioxide 23 mmol/L (22-30); Chloride 107 mmol/L (98-107); Creatine Kinase 153 U/L (30-135); Glucose 103 mg/dL (74-99); Potassium 4.1 mmol/L (3.5-5.1); Sodium 142 mmol/L (137-145); Total Bilirubin 0.7 mg/dL (0.2-1.3)
[2018-04-06 00:51] LABS: D-Dimer 0.49 mg/L FEU (<0.60); INR 0.9 (<1.2); Partial Thromboplastin Time 27.4 sec (22.0-30.0)
[2018-04-06 02:05] LABS: Appearance,Urine Clear (Clear); Bilirubin,Urine Negative (Negative); Blood,Urine Negative (Negative); Color,Urine Yellow; Glucose,Urine (UA) Negative (Negative); Ketones,Urine Negative (Negative); Leukocyte Esterase,Urine Negative (Negative); Nitrite,Urine Negative (Negative); PH, Urine 6.5 (5.0-8.0); Protein,Urine Negative (Negative); Specific Gravity,Urine 1.015 (1.001-1.035); Urobilinogen,Urine <2.0 mg/dL (<2.0)
[2018-04-06] MEDS ORDERED: MECLIZINE 12.5 MG TAB PO STA (02:10)
--- NOTE | 2018-04-06 02:12 | ED ---
Syncope HPI - General Chief Complaint: Syncope Stated Complaint: Syncope Time Seen by Provider: 04/06/18 00:22 Source: patient Mode of arrival: ambulatory Limitations: no limitations - History of Present Illness Initial Comments: Elicia Galicia is a 23-year-old female presents to the emergency department today for evaluation of dizziness and possible syncopal episode. Patient reports that she's been in her usual state of health. She states that this evening she was sitting when her infant daughter's father arrived at the home to collect some belongings of her daughters. She states that she got up to walk to the door and felt like the room was spinning around her and felt very dizzy. She states that she studied herself on the table and when answering the door advised them that she wasn't feeling well. She then attempted to walk back in the living room but again got very dizzy falling backwards. Patient believes she may have passed out although she does recall the entire event. She states that she does have a history of syncopal episodes in the past. She reports at times she has had multiple syncopal episodes in one day or multiple days in a row with single episodes though at times she goes nearly a year without sequela episodes. She does report she has discussed this in detail with her primary care physician. Patient reports she has not had a syncopal episode in nearly a year. denies any chest pain, palpitations or shortness of breath preceding the event. - Related Data Previous Rx's Medication Instructions Recorded Meclizine [Antivert] 12.5 mg PO Q6H #10 tablet 04/06/18 Allergies Allergy/AdvReac Type Severity Reaction Status Date / Time gabapentin [From Neurontin] Allergy Anaphylaxis Verified 04/06/18 00:18 Penicillins Allergy stopped Verified 04/06/18 00:18 breathing Sulfa (Sulfonamide AdvReac Dyspnea,[place] Verified 04/06/18 00:18 Antibiotics) h Review of Systems ROS Statement: Those systems with pertinent positive or pertinent negative responses have been documented in the HPI. ROS Other: All systems not noted in ROS Statement are negative. Past Medical History Past Medical History: Syncope Additional Past Medical History / Comment(s): back pain started x1 day History of Any Multi-Drug Resistant Organisms: None Reported Past Surgical History: Adenoidectomy, Section, Tonsillectomy Additional Past Surgical History / Comment(s): oral surgery Past Psychological History: No Psychological Hx Reported Smoking Status: Never smoker Past Alcohol Use History: None Reported Past Drug Use History: None Reported General Exam - General Exam Comments Initial Comments: Physical Exam GENERAL: Patient is well-developed and well-nourished. Patient is nontoxic and well- hydrated and is in no distress. HENT: Normocephalic, Atraumatic. EYES: PERRL, EOMI PULMONARY: Unlabored respirations. No audible rales rhonchi or wheezing was noted. CARDIOVASCULAR: There is a regular rate and rhythm without any murmurs gallops or rubs. ABDOMEN: Soft and nontender with normal bowel sounds. SKIN: Skin is clear with no lesions or rashes and otherwise unremarkable. : Deferred NEUROLOGIC: Patient is alert and oriented x3. Moving all extremities spontaneously MUSCULOSKELETAL: Normal extremities with adequate strength and full range of motion. No lower extremity swelling or edema. No calf tenderness. PSYCHIATRIC: Normal psychiatric evaluation. Limitations: no limitations Limitations: no limitations Course Vital Signs 04/06/18 04/06/18 04/06/18 00:18 00:31 00:50 Temperature 97.9 F Pulse Rate 72 72 Respiratory 31 H 16 20 Rate Blood Pressure 135/93 135/93 131/86 O2 Sat by Pulse 99 Oximetry 04/06/18 03:12 Temperature 97.6 F Pulse Rate 59 L Respiratory 16 Rate Blood Pressure 139/82 O2 Sat by Pulse 97 Oximetry EKG Findings - EKG Comments: EKG Findings:: EKG obtained at 12:19 AM, rate is 77 rhythm is sinus there is a normal axis there are normal intervals, ND 150, QRS 86, QTC 411 there is no acute ST elevations or depressions evidence of acute ischemia or infarction. Medical Decision Making - Medical Decision Making The patient was seen and evaluated history was obtained from the patient and mother bedside Patient with vertiginous-like dizziness as well as possible syncopal episode versus loss of balance due to dizziness patient is a poor historian very emotionally upset Labs and IV fluids were ordered Patient was evaluated she was advised of her normal lab findings patient's received a proximal half of her normal fluids and reports she still feeling like the room is spinning around her at the same by mouth Antivert was ordered Patient's stomach vital signs are within normal limits When patient was reevaluated from the nurse to give her her Antivert she was sleeping comfortably and reported that her symptoms have resolved. At this time patient is comfortable with the plan for discharge home and outpatient follow-up. Patient will be prescribed Antivert as she does seem to have a vertiginous component of her symptoms. All questions pertaining care were answered best my ability return parameters were discussed and the patient was discharged home in stable condition. - Lab Data Result diagrams: 04/06/18 00:27 04/06/18 00:27 Lab Results 04/06/18 04/06/18 04/06/18 Range/Units 00:26 00:27 00:27 WBC 8.7 (3.8-10.6) k/uL RBC 4.72 (3.80-5.40) m/uL Hgb 13.8 (11.4-16.0) gm/dL Hct 41.0 (34.0-46.0) % MCV 86.9 (80.0-100.0) fL MCH 29.2 (25.0-35.0) pg MCHC 33.6 (31.0-37.0) g/dL RDW 13.6 (11.5-15.5) % Plt Count 223 (150-450) k/uL Neutrophils % 65 % Lymphocytes % 25 % Monocytes % 4 % Eosinophils % 3 % Basophils % 1 % Neutrophils # 5.7 (1.3-7.7) k/uL Lymphocytes # 2.2 (1.0-4.8) k/uL Monocytes # 0.4 (0-1.0) k/uL Eosinophils # 0.3 (0-0.7) k/uL Basophils # 0.1 (0-0.2) k/uL PT (9.0-12.0) sec INR (<1.2) APTT (22.0-30.0) sec D-Dimer (<0.60) mg/L FEU Sodium 142 (137-145) mmol/L Potassium 4.1 (3.5-5.1) mmol/L Chloride 107 (98-107) mmol/L Carbon Dioxide 23 (22-30) mmol/L Anion Gap 12 mmol/L BUN 13 (7-17) mg/dL Creatinine 0.79 (0.52-1.04) mg/dL Est GFR (CKD-EPI)AfAm >90 (>60 ml/min/1.73 sqM) Est GFR (CKD-EPI)NonAf >90 (>60 ml/min/1.73 sqM) Glucose 103 H (74-99) mg/dL POC Glucose (mg/dL) 105 H (75-99) mg/dL POC Glu Theatre Director ID Shi Liriano Calcium 9.8 (8.4-10.2) mg/dL Magnesium 2.0 (1.6-2.3) mg/dL Total Bilirubin 0.7 (0.2-1.3) mg/dL AST 18 (14-36) U/L ALT 24 (9-52) U/L Alkaline Phosphatase 48 (38-126) U/L Creatine Kinase 153 H (30-135) U/L Troponin I (0.000-0.034) ng/mL Total Protein 7.0 (6.3-8.2) g/dL Albumin 4.3 (3.5-5.0) g/dL Urine Color Urine Appearance (Clear) Urine pH (5.0-8.0) Ur Specific [place] (1.001-1.035) Urine Protein (Negative) Urine Glucose (UA) (Negative) Urine Ketones (Negative) Urine Blood (Negative) Urine Nitrite (Negative) Urine Bilirubin (Negative) Urine Urobilinogen (<2.0) mg/dL Ur Leukocyte Esterase (Negative) 04/06/18 04/06/18 04/06/18 Range/Units 00:27 00:27 01:55 WBC (3.8-10.6) k/uL RBC (3.80-5.40) m/uL Hgb (11.4-16.0) gm/dL Hct (34.0-46.0) % MCV (80.0-100.0) fL MCH (25.0-35.0) pg MCHC (31.0-37.0) g/dL RDW (11.5-15.5) % Plt Count (150-450) k/uL Neutrophils % % Lymphocytes % % Monocytes % % Eosinophils % % Basophils % % Neutrophils # (1.3-7.7) k/uL Lymphocytes # (1.0-4.8) k/uL Monocytes # (0-1.0) k/uL Eosinophils # (0-0.7) k/uL Basophils # (0-0.2) k/uL PT 10.0 (9.0-12.0) sec INR 0.9 (<1.2) APTT 27.4 (22.0-30.0) sec D-Dimer 0.49 (<0.60) mg/L FEU Sodium (137-145) mmol/L Potassium (3.5-5.1) mmol/L Chloride (98-107) mmol/L Carbon Dioxide (22-30) mmol/L Anion Gap mmol/L BUN (7-17) mg/dL Creatinine (0.52-1.04) mg/dL Est GFR (CKD-EPI)AfAm (>60 ml/min/1.73 sqM) Est GFR (CKD-EPI)NonAf (>60 ml/min/1.73 sqM) Glucose (74-99) mg/dL POC Glucose (mg/dL) (75-99) mg/dL POC Glu Theatre Director ID Calcium (8.4-10.2) mg/dL Magnesium (1.6-2.3) mg/dL Total Bilirubin (0.2-1.3) mg/dL AST (14-36) U/L ALT (9-52) U/L Alkaline Phosphatase (38-126) U/L Creatine Kinase (30-135) U/L Troponin I <0.012 (0.000-0.034) ng/mL Total Protein (6.3-8.2) g/dL Albumin (3.5-5.0) g/dL Urine Color Yellow Urine Appearance Clear (Clear) Urine pH 6.5 (5.0-8.0) Ur Specific [place] 1.015 (1.001-1.035) Urine Protein Negative (Negative) Urine Glucose (UA) Negative (Negative) Urine Ketones Negative (Negative) Urine Blood Negative (Negative) Urine Nitrite Negative (Negative) Urine Bilirubin Negative (Negative) Urine Urobilinogen <2.0 (<2.0) mg/dL Ur Leukocyte Esterase Negative (Negative) Disposition Clinical Impression: Fainting spell Disposition: HOME SELF-CARE Condition: Stable Instructions (If sedation given, give patient instructions): Vertigo (DC), Syncope (DC) Prescriptions: Meclizine [Antivert] 12.5 mg PO Q6H #10 tablet Is patient prescribed a controlled substance at d/c from ED?: No Referrals: Richard Guerra MD [Primary Care Provider] - 1-2 days
--- NOTE | 2018-04-06 02:44 | XR ---
EXAM: XR Chest, 2 Views CLINICAL HISTORY: syncope TECHNIQUE: Frontal and lateral views of the chest. COMPARISON: 05/11/16 FINDINGS: Lungs: Unremarkable. No consolidation. Pleural space: Unremarkable. No pneumothorax. Heart: Unremarkable. No cardiomegaly. Mediastinum: Unremarkable. Bones/joints: Unremarkable. IMPRESSION: No acute abnormality in the chest
[2018-04-06 03:19] VITALS: BP 139/82; PULSE 59; RESP 16; TEMP 97.6
== END 2018-04-06 03:12 | disposition home or self-care (01) ==
LOC: EC 00:12
DX: R55 Syncope and collapse (principal); Z88.0 Allergy status to penicillin; Z88.2 Allergy status to sulfonamides; Z88.8 Allergy status to other drugs, medicaments and biological substances; W01.0XXA Fall on same level from slipping, tripping and stumbling without subsequent striking against object, initial encounter; Y93.01 Activity, walking, marching and hiking; Y92.008 Other place in unspecified non-institutional (private) residence as the place of occurrence of the external cause
CPT/HCPCS: 36415; 71046; 80053; 81003; 82550; 83735; 84484; 85025; 85379; 85610; 85730; 93005; 96360; 96361; 99285

== ENCOUNTER 2018-04-16 09:26 | Day surgery (SDC) | payer BC, OTHER ==
[2018-04-15 08:39] VITALS: BMI 28.7
[~2018-04-16 09:26] MED LIST: SODIUM CHLORIDE 0.9% 1,000 ML IV SCH
[2018-04-16 09:51] VITALS: RESP 18; TEMP 97.8
[2018-04-16] MEDS ORDERED: ATROPINE SULFATE 0.1 MG/ML 10ML SYRINGE ONE (10:57)
[2018-04-16] MEDS ORDERED: ATROPINE SULFATE 0.1 MG/ML 10ML SYRINGE IVP ONE (10:58)
[2018-04-16] MEDS ORDERED: SODIUM CHLORIDE 0.9% 1,000 ML IV ONE (11:30)
--- NOTE | 2018-04-16 12:17 | P.PCN ---
Preoperative Diagnosis: Diagnosis Recurrent syncope, frequent episodes Twelve-lead ECG shows sinus rhythm normal [place] narrow QRS normal ST segments normal QT interval Tilt table test per protocol Baseline blood pressure 120/84 mmHg Baseline heart rate 64 beats a minute Patient was tilted upright at an angle of 70 per protocol. By 20 minutes the heart rate had increased to 90 beats a minute following which the patient stated that she was going to pass out. There was a sudden drop in blood pressure and the lowest heart rate recorded was 34 beats a minute with a long pause. This occurred after a sinus tachycardia was noted. She was briefly unconscious and when she was laid supine her blood pressure and heart rate normalized Impression Normal 12-lead ECG Typical neurocardiogenic syncope in a young patient with the typical sequence of sinus tachycardia followed by hypertension followed by severe bradycardia and brief asystole consistent with a vagal response Suggest Lifestyle modification with increase fluid and salt intake, consider Florinef Lower extremity isometric strengthening exercises Anesthesia: none Condition: stable Disposition: same day
[2018-04-16 14:33] VITALS: BP 140/84
[2018-04-16 16:47] VITALS: PULSE 76
== END 2018-04-16 14:32 | disposition home or self-care (01) ==
LOC: CATHEP 09:26
PROVIDERS: ATTEND Internal Medicine Clinical Cardiac Electrophysiology
DX: R00.1 Bradycardia, unspecified (principal); R00.0 Tachycardia, unspecified; I10 Essential (primary) hypertension; Z82.49 Family history of ischemic heart disease and other diseases of the circulatory system; Z88.0 Allergy status to penicillin; Z88.2 Allergy status to sulfonamides; Z88.8 Allergy status to other drugs, medicaments and biological substances
CPT/HCPCS: 93660; 81025; J0461

== ENCOUNTER 2018-04-17 12:29 | Observation (INO) | payer BC, OTHER ==
[2018-04-17] MEDS ORDERED: SODIUM CHLORIDE 0.9% 1,000 ML IV STA (12:50)
[2018-04-17 13:10] LABS: Basophils % (A) 1 %; Eosinophils # (A) 0.2 k/uL (0-0.7); Eosinophils % (A) 4 %; HCT 41.2 % (34.0-46.0); HGB 14.2 gm/dL (11.4-16.0); Lymphocytes # (A) 2.2 k/uL (1.0-4.8); Lymphocytes % (A) 36 %; MCH 29.4 pg (25.0-35.0); MCHC 34.4 g/dL (31.0-37.0); MCV 85.6 fL (80.0-100.0); Mean Platelet Volume 8.4; Monocytes # (A) 0.2 k/uL (0-1.0); Monocytes % (A) 4 %; Neutrophils # (A) 3.2 k/uL (1.3-7.7); Neutrophils % (A) 53 %; Platelet Count 187 k/uL (150-450); RBC 4.82 m/uL (3.80-5.40); RDW 13.8 % (11.5-15.5); WBC 6.1 k/uL (3.8-10.6)
[2018-04-17 13:17] LABS: ALT 33 U/L (9-52); AST 30 U/L (14-36); Albumin 4.4 g/dL (3.5-5.0); Alkaline Phosphatase 36 U/L (38-126); Anion Gap 8 mmol/L; Blood Urea Nitrogen 8 mg/dL (7-17); Calcium 9.7 mg/dL (8.4-10.2); Carbon Dioxide 26 mmol/L (22-30); Chloride 107 mmol/L (98-107); Glucose 102 mg/dL (74-99); Magnesium 2.1 mg/dL (1.6-2.3); Sodium 141 mmol/L (137-145); Total Bilirubin 0.9 mg/dL (0.2-1.3); Total Protein 7.6 g/dL (6.3-8.2)
[2018-04-17 13:19] LABS: Potassium 4.7 mmol/L (3.5-5.1)
[2018-04-17 13:26] LABS: Bacteria,Urine Rare /hpf; Mucus,Urine Rare /hpf; RBC,Urine 1 /hpf (0-5); Squamous Epithelial Cell,Urine 3 /hpf (0-4); WBC,Urine 3 /hpf (0-5)
[2018-04-17 13:26] LABS: INR 0.9 (<1.2); Partial Thromboplastin Time 26.2 sec (22.0-30.0); Prothrombin Time 9.5 sec (9.0-12.0)
--- NOTE | 2018-04-17 13:32 | ED ---
General Adult HPI - General Chief complaint: Syncope Stated complaint: Syncope Time Seen by Provider: 04/17/18 12:32 Source: patient, RN notes reviewed Mode of arrival: EMS Limitations: no limitations - History of Present Illness Initial comments: 23-year-old female history of recurrent syncope presents for evaluation of 2 syncopal episodes today. Patient was at rest, sitting with these episodes occurred. She has had some chest pain over the past 24 hours. Patient was seen at this institution for tilt table test, according the patient she had brief episode of asystole requiring CPR and attributed her pain complaint to CPR. This is nonradiating sternal pain worse with outpatient and movement. Patient has no additional past medical history, no diabetes, no coronary artery disease. She has had issues with syncope over the past 5 years. She does follow with cardiology. No recent vomiting or diarrhea. No fever. - Related Data Home Medications Medication Instructions Recorded Confirmed No Known Home Medications 04/17/18 04/17/18 Allergies Allergy/AdvReac Type Severity Reaction Status Date / Time gabapentin [From Neurontin] Allergy Anaphylaxis Verified 04/17/18 13:33 Penicillins Allergy stopped Verified 04/17/18 13:33 breathing Sulfa (Sulfonamide AdvReac Dyspnea,alem Verified 04/17/18 13:33 Antibiotics) h Review of Systems ROS Statement: Those systems with pertinent positive or pertinent negative responses have been documented in the HPI. ROS Other: All systems not noted in ROS Statement are negative. Past Medical History Past Medical History: Syncope Additional Past Medical History / Comment(s): back pain started x1 day History of Any Multi-Drug Resistant Organisms: None Reported Past Surgical History: Adenoidectomy, Tonsillectomy Additional Past Surgical History / Comment(s): oral surgery Past Psychological History: No Psychological Hx Reported Smoking Status: Never smoker Past Alcohol Use History: None Reported Past Drug Use History: None Reported General Exam Limitations: no limitations General appearance: alert, in no apparent distress Head exam: Present: atraumatic, normocephalic Eye exam: Present: normal appearance, PERRL ENT exam: Present: normal exam Neck exam: Present: normal inspection. Absent: tenderness, meningismus Respiratory exam: Present: normal lung sounds bilaterally. Absent: respiratory distress, wheezes Cardiovascular Exam: Present: regular rate, normal rhythm GI/Abdominal exam: Present: soft. Absent: distended, tenderness, guarding Extremities exam: Present: normal inspection, normal capillary refill. Absent: pedal edema Neurological exam: Present: alert, oriented X3, CN II-XII intact. Absent: motor sensory deficit Psychiatric exam: Present: normal affect, normal mood Skin exam: Present: warm, dry, intact. Absent: cyanosis, diaphoretic Course Vital Signs 04/17/18 04/17/18 04/17/18 12:33 13:14 14:01 Temperature 98.5 F Pulse Rate 63 67 Respiratory 18 66 H 18 Rate Blood Pressure 138/95 136/85 118/72 O2 Sat by Pulse 100 100 100 Oximetry EKG Findings - EKG Comments: EKG Findings:: EKG: Normal sinus rhythm with sinus arrhythmia, T waves are upright, ventricular rate is 60, VA interval 144, QRS duration 92, QTC [address] segment changes Medical Decision Making - Medical Decision Making 23-year-old female history of recurrent syncope presents with 2 episodes consistent with syncope. Patient had a tilt table test yesterday, according to the patient there was a prolonged sinus pause with preceding bradycardia. This was reviewed in the medical record. There was a brief course of CPR according to the patient. Workup in the emergency department today reveals normal CBC, normal electrolytes. EKG is sinus rhythm with sinus arrhythmia. I was able to discuss the case with the patient's gw[employer] ia[employer] intelligence support Dr. Aguilera, we will keep the patient observation for telemetry and cardiology consult. Case discussed with Dr. Chambers, who will admit. - Lab Data Result diagrams: 04/17/18 12:38 04/17/18 12:38 Lab Results 04/17/18 04/17/18 04/17/18 Range/Units 12:38 12:38 12:38 WBC 6.1 (3.8-10.6) k/uL RBC 4.82 (3.80-5.40) m/uL Hgb 14.2 (11.4-16.0) gm/dL Hct 41.2 (34.0-46.0) % MCV 85.6 (80.0-100.0) fL MCH 29.4 (25.0-35.0) pg MCHC 34.4 (31.0-37.0) g/dL RDW 13.8 (11.5-15.5) % Plt Count 187 (150-450) k/uL Neutrophils % 53 % Lymphocytes % 36 % Monocytes % 4 % Eosinophils % 4 % Basophils % 1 % Neutrophils # 3.2 (1.3-7.7) k/uL Lymphocytes # 2.2 (1.0-4.8) k/uL Monocytes # 0.2 (0-1.0) k/uL Eosinophils # 0.2 (0-0.7) k/uL Basophils # 0.0 (0-0.2) k/uL PT 9.5 (9.0-12.0) sec INR 0.9 (<1.2) APTT 26.2 (22.0-30.0) sec Sodium 141 (137-145) mmol/L Potassium 4.7 (3.5-5.1) mmol/L Chloride 107 (98-107) mmol/L Carbon Dioxide 26 (22-30) mmol/L Anion Gap 8 mmol/L BUN 8 (7-17) mg/dL Creatinine 0.57 (0.52-1.04) mg/dL Est GFR (CKD-EPI)AfAm >90 (>60 ml/min/1.73 sqM) Est GFR (CKD-EPI)NonAf >90 (>60 ml/min/1.73 sqM) Glucose 102 H (74-99) mg/dL Calcium 9.7 (8.4-10.2) mg/dL Magnesium 2.1 (1.6-2.3) mg/dL Total Bilirubin 0.9 (0.2-1.3) mg/dL AST 30 (14-36) U/L ALT 33 (9-52) U/L Alkaline Phosphatase 36 L (38-126) U/L Troponin I (0.000-0.034) ng/mL Total Protein 7.6 (6.3-8.2) g/dL Albumin 4.4 (3.5-5.0) g/dL Urine Color Urine Appearance (Clear) Urine pH (5.0-8.0) Ur Specific [place] (1.001-1.035) Urine Protein (Negative) Urine Glucose (UA) (Negative) Urine Ketones (Negative) Urine Blood (Negative) Urine Nitrite (Negative) Urine Bilirubin (Negative) Urine Urobilinogen (<2.0) mg/dL Ur Leukocyte Esterase (Negative) Urine RBC (0-5) /hpf Urine WBC (0-5) /hpf Ur Squamous Epith Cells (0-4) /hpf Urine Bacteria (None) /hpf Urine Mucus (None) /hpf Urine HCG, Qual (Not Detectd) 04/17/18 04/17/18 04/17/18 Range/Units 12:38 12:47 12:47 WBC (3.8-10.6) k/uL RBC (3.80-5.40) m/uL Hgb (11.4-16.0) gm/dL Hct (34.0-46.0) % MCV (80.0-100.0) fL MCH (25.0-35.0) pg MCHC (31.0-37.0) g/dL RDW (11.5-15.5) % Plt Count (150-450) k/uL Neutrophils % % Lymphocytes % % Monocytes % % Eosinophils % % Basophils % % Neutrophils # (1.3-7.7) k/uL Lymphocytes # (1.0-4.8) k/uL Monocytes # (0-1.0) k/uL Eosinophils # (0-0.7) k/uL Basophils # (0-0.2) k/uL PT (9.0-12.0) sec INR (<1.2) APTT (22.0-30.0) sec Sodium (137-145) mmol/L Potassium (3.5-5.1) mmol/L Chloride (98-107) mmol/L Carbon Dioxide (22-30) mmol/L Anion Gap mmol/L BUN (7-17) mg/dL Creatinine (0.52-1.04) mg/dL Est GFR (CKD-EPI)AfAm (>60 ml/min/1.73 sqM) Est GFR (CKD-EPI)NonAf (>60 ml/min/1.73 sqM) Glucose (74-99) mg/dL Calcium (8.4-10.2) mg/dL Magnesium (1.6-2.3) mg/dL Total Bilirubin (0.2-1.3) mg/dL AST (14-36) U/L ALT (9-52) U/L Alkaline Phosphatase (38-126) U/L Troponin I 0.017 (0.000-0.034) ng/mL Total Protein (6.3-8.2) g/dL Albumin (3.5-5.0) g/dL Urine Color Yellow Urine Appearance Clear (Clear) Urine pH 7.0 (5.0-8.0) Ur Specific [place] 1.005 (1.001-1.035) Urine Protein Negative (Negative) Urine Glucose (UA) Negative (Negative) Urine Ketones Negative (Negative) Urine Blood Negative (Negative) Urine Nitrite Negative (Negative) Urine Bilirubin Negative (Negative) Urine Urobilinogen <2.0 (<2.0) mg/dL Ur Leukocyte Esterase Large (Negative) Urine RBC 1 (0-5) /hpf Urine WBC 3 (0-5) /hpf Ur Squamous Epith Cells 3 (0-4) /hpf Urine Bacteria Rare H (None) /hpf Urine Mucus Rare H (None) /hpf Urine HCG, Qual Not Detected (Not Detectd) Disposition Clinical Impression: Syncope Disposition: ADMITTED IP TO THIS [facility] Condition: Stable Is patient prescribed a controlled substance at d/c from ED?: No Referrals: Richard Guerra MD [Primary Care Provider] - 1-2 days Decision to Admit Reason: Admit from EC Decision Date: 04/17/18 Decision Time: 15:08
--- NOTE | 2018-04-17 13:49 | XR ---
EXAMINATION TYPE: XR chest 2V DATE OF EXAM: 04/17/2018 COMPARISON: Chest x-ray April 06, 2018 HISTORY: Syncope and weakness. TECHNIQUE: Frontal and lateral views of the chest are obtained. FINDINGS: There is no focal air space opacity, pleural effusion, or pneumothorax seen. The cardiac silhouette size is within normal limits. The osseous structures are intact. IMPRESSION: No acute cardiopulmonary process. No significant change from prior.
[2018-04-17 13:52] LABS: Nitrite,Urine Negative (Negative)
[2018-04-17 13:53] LABS: Specific Gravity,Urine 1.005 (1.001-1.035)
[2018-04-17 13:54] LABS: Appearance,Urine Clear (Clear); Bilirubin,Urine Negative (Negative); Blood,Urine Negative (Negative); Color,Urine Yellow; Glucose,Urine (UA) Negative (Negative); Ketones,Urine Negative (Negative); Protein,Urine Negative (Negative)
[2018-04-17 13:55] LABS: Leukocyte Esterase,Urine Large (Negative); Urobilinogen,Urine <2.0 mg/dL (<2.0)
[2018-04-17] MEDS ORDERED: NALOXONE 0.4 MG/ML 1 ML VIAL IV PRN (15:04)
[2018-04-17 15:39] VITALS: BMI 29.7
[2018-04-17] MEDS: SODIUM CHLORIDE 0.9% 1,000 ML IV SCH (16:19)
[2018-04-17] MEDS ORDERED: ACETAMINOPHEN TAB 325 MG TAB PO PRN (22:36)
--- NOTE | 2018-04-17 22:38 | HP ---
HISTORY AND PHYSICAL DATE OF ADMISSION AND SERVICE: 04/17/2018 PRESENTING COMPLAINT: Passed out. HISTORY OF PRESENTING COMPLAINT: This is a very pleasant 23-year-old patient of Dr. Guerra. For the last 5 years she has been having episodes of passing out. Typically the episodes include becoming lightheaded, dizzy; sometimes things are moving around; sometimes is moving. She may become flushed, anywhere from a few seconds to a few minutes. This happens at a variable rate variable rate. She follows with Dr. Aguilera. Patient did have a tilt-table test yesterday, and when the tilt-table was put upright she passed out and had asystole. She was diagnosed with neurocardiogenic syncope. Patient had another episode today and decided to come in. At an average, she may have 5-[address] Aguilera had the patient admitted today. IV fluids were ordered. REVIEW OF SYSTEMS: CONSTITUTIONAL: None. HEENT: None. RESPIRATORY: None. CARDIOVASCULAR: As above. GASTROINTESTINAL: None. GENITOURINARY: None. MUSCULOSKELETAL: None. DERMATOLOGICAL: None. HEMATOLOGICAL: None. LYMPHATICS: None. PSYCHIATRY: None. NEUROLOGICAL: As above. No focal symptoms. No seizure activity. No chest pain or palpitations. PAST MEDICAL HISTORY: Recurrent syncope. PAST SURGICAL HISTORY: 1. Adenoidectomy. 2. . 3. Tonsillectomy. SOCIAL HISTORY: Patient resides with her mother and patient's 9-month-old daughter. Patient is a cook for [employer]. No smoking. No alcohol. No recreational drugs. FAMILY HISTORY: Father had 2 transplants, of lung cancer. Uncle had a transplant. Grandfather had a heart transplant. HOME MEDICATIONS: None. ALLERGIES: 1. NEURONTIN. 2. PENICILLIN. 3. SULFA. PHYSICAL EXAMINATION: VITAL SIGNS: Temperature 97.9, pulse 94, respiration 15, blood pressure 142/81, pulse ox 99% on room air. GENERAL APPEARANCE: Average build. Sitting up, awake. EYES: Pupils equal. Conjunctivae normal. HEENT: External appearance of nose and ears normal. Oral cavity normal. NECK: JVD not raised. Mass not palpable. RESPIRATORY: Effort normal. Lungs are clear. CARDIOVASCULAR: First and second sounds normal. No edema. ABDOMEN: Soft, non-tender. Liver and spleen not palpable. LYMPHATIC: No lymph node palpable in neck or axillae. PSYCHIATRY: Alert and oriented x3. Mood and affect normal. NEUROLOGICAL: Pupils equal. Cranial nerves grossly intact. Power and sensation grossly intact. INVESTIGATIONS: White count 6.1, hemoglobin 14.2, potassium 4.7. BUN and creatinine are normal. UA negative. Tilt-table test is also noted from yesterday. ASSESSMENT: Recurrent neurocardiogenic syncope as confirmed by tilt-table test. PLAN: Patient will be started on Florinef 0.1 mg twice a day. Jensen stockings above the knee. Will also give IV fluids overnight. Care was discussed with the patient. Questions were answered. Dr. Aguilera was consulted. MMODL / IJN: [id number] /
[2018-04-17] MEDS: FLUDROCORTISONE 0.1 MG TAB PO SCH (22:57)
[2018-04-18] MEDS: SODIUM CHLORIDE 0.9% 1,000 ML IV SCH (05:57)
[2018-04-18 07:59] VITALS: RESP 18
[2018-04-18] MEDS: FLUDROCORTISONE 0.1 MG TAB PO SCH (09:30)
[2018-04-18 12:34] VITALS: BP 129/81; PULSE 65; TEMP 98.1
--- NOTE | 2018-04-18 20:35 | P.CRDCN ---
History of Present Illness Consult date: 04/18/18 Chief complaint: Syncopal episode History of present illness: This is a pleasant 23-year-old female patient who following the office as an outpatient with history of recurrent syncope presented to the emergency room again complaining of loss of consciousness. She underwent a tilt table test yesterday and that revealed typical neurocardiogenic syncope with typical sequence of sinus tachycardia followed by hypertension followed by severe bradycardia and then asystole. She did have another episode of syncope yesterday and because of that she presented to the emergency room. No chest pain or chest discomfort, heart racing or fluttering,. From the cardiovascular standpoint overview, the patient can be discharged home. She was already started on Florinef which we will continue. I will follow-up with her in the office as an outpatient. Past Medical History Past Medical History: Syncope Additional Past Medical History / Comment(s): Syncopal episodes past 5 years, TTT on 04/16/18 pt states heart paused and she was given CPR, low back pain, vertigo History of Any Multi-Drug Resistant Organisms: None Reported Past Surgical History: Adenoidectomy, Section, Tonsillectomy Additional Past Surgical History / Comment(s): 04/16/18 TTT, oral surgery as a child Past Anesthesia/Blood Transfusion Reactions: No Reported Reaction Smoking Status: Never smoker - Past Family History Father Family Medical History: Cancer Additional Family Medical History / Comment(s): Father had 2 heart transplants. He of lung cancer at the age of 39 yrs. Mother Additional Family Medical History / Comment(s): Sinus problems and DDD. Medications and Allergies Home Medications Medication Instructions Recorded Confirmed Type Fludrocortisone [Florinef] 0.1 mg PO BID #60 tab 04/18/18 Rx Allergies Allergy/AdvReac Type Severity Reaction Status Date / Time gabapentin [From Neurontin] Allergy Anaphylaxis Verified 04/17/18 13:33 Penicillins Allergy stopped Verified 04/17/18 13:33 breathing Sulfa (Sulfonamide AdvReac Dyspnea,alem Verified 04/17/18 13:33 Antibiotics) h Physical Exam Vitals: Vital Signs Temp Pulse Resp BP Pulse Ox 04/18/18 12:00 98.1 F 65 18 129/81 96 04/18/18 07:58 97.5 F L 67 18 130/81 97 04/18/18 04:00 97.8 F 77 14 130/85 98 04/18/18 02:43 55 L 15 04/18/18 00:00 98.0 F 61 15 132/77 99 Intake and Output 04/18/18 04/18/18 04/18/18 06:59 14:59 22:59 Intake Total 640 Balance 640 Intake: Oral 640 Other: Voiding Method Toilet Toilet # Voids 2 1 - Constitutional General appearance: no acute distress Results 04/17/18 12:38 04/17/18 12:38 Intake and Output 04/18/18 04/18/18 04/18/18 06:59 14:59 22:59 Intake Total 640 Balance 640 Intake: Oral 640 Other: Voiding Method Toilet Toilet # Voids 2 1 04/17/18 12:38 04/17/18 12:38 Assessment and Plan Assessment: Assessment #1 neurocardiogenic syncope Plan #1 agree to start the patient on Florinef #2 exercise of the lower extremity #3 discharge home.
--- NOTE | 2018-04-21 08:34 | DS ---
DISCHARGE SUMMARY DATE OF ADMISSION: 04/17/18. DATE OF DISCHARGE: 04/18/18. FINAL DIAGNOSIS: Recurrent neurocardiogenic syncope as confirmed by tilt-table test. HOSPITAL COURSE: This is a patient who has been having recurrent episodes of passing out. Did have a tilt-table test by Dr. Elio Danielson that did confirm a neurocardiogenic syncope. The day before patient was admitted through the ER. The patient was started on Florinef and Jensen stockings were ordered. The patient was doing better. I advised the patient not to drive until she follows up with Cardiology. PHYSICAL EXAMINATION: Temperature 98.1, pulse 55, respiratory 18, blood pressure 120/81, pulse ox 96 percent on room air. Lungs are clear. Cardiovascular: 1st 2nd sounds normal. LABS: Potassium 4.7. DISCHARGE MEDICATIONS: Florinef 0.1 mg p.o. b.i.d. FOLLOWUP: Follow with Dr. Guerra in 3 days. Follow up with Dr. Aguilera on 05/02/18. The patient advised not to drive until follow up with Dr. Aguilera. MMODL / IJN: [id number] /
== END 2018-04-18 15:50 | disposition home or self-care (01) ==
LOC: EC 12:29 → 1SOBS 15:05
PROVIDERS: ADMIT Hospitalist; ATTEND Hospitalist
DX: R55 Syncope and collapse (principal); R07.9 Chest pain, unspecified; Z80.1 Family history of malignant neoplasm of trachea, bronchus and lung; Z82.49 Family history of ischemic heart disease and other diseases of the circulatory system; Z88.0 Allergy status to penicillin; Z88.2 Allergy status to sulfonamides; Z88.8 Allergy status to other drugs, medicaments and biological substances
CPT/HCPCS: 96360; 96361; 99285; 36415; 93005; 80053; 83735; 84484; 85025; 85610; 85730; 81001; 81025; 71046; G0378 ×2

== ENCOUNTER 2018-06-20 17:37 | Emergency (ER) | payer BC, OTHER ==
[2018-06-20] MEDS ORDERED: SODIUM CHLORIDE 0.9% 1,000 ML IV STA (18:24)
--- NOTE | 2018-06-20 18:30 | ED ---
General Adult HPI - General Chief complaint: Syncope Stated complaint: Syncope Time Seen by Provider: 06/20/18 18:02 Source: patient, EMS, RN notes reviewed Mode of arrival: EMS Limitations: no limitations - History of Present Illness Initial comments: 23-year-old female with A known syncopal disorder presents to the emergency department for a chief complaint of syncope. 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 Patient state her vision started to go and she passed out. Patient states she fell backwards and did hit her head. Patient admits to mild headache at this time. Denies any tender spots Patricia or lumps. States she is feeling back to her normal self otherwise. States that she has had multiple syncopal episodes with the last one being about a month ago. States she has had this evaluated with her small business director Dr. Aguilera and is told she has a severe syncopal disorder where her heart stops. Patient states she is not exactly sure what this disorder is. Patient states that usually when this happens he told her she can stay home and not be evaluated in the emergency department. However as this happened at work EMS was called and patient was brought to the emergency department.Patient has no other complaints at this time including shortness of breath, chest pain, abdominal pain, nausea or vomiting, headache, or visual changes. - Related Data Home Medications Medication Instructions Recorded Confirmed Levonorgestrel-Ethin Estradiol 1 tab PO DAILY 06/20/18 06/20/18 [Levora-28 Tablet] Midodrine HCl [ProAmantine] 5 mg PO TID 06/20/18 06/20/18 Allergies Allergy/AdvReac Type Severity Reaction Status Date / Time gabapentin [From Neurontin] Allergy Anaphylaxis Verified 06/20/18 18:04 Penicillins Allergy stopped Verified 06/20/18 18:04 breathing Sulfa (Sulfonamide AdvReac Dyspnea,alem Verified 06/20/18 18:04 Antibiotics) h Review of Systems ROS Statement: Those systems with pertinent positive or pertinent negative responses have been documented in the HPI. ROS Other: All systems not noted in ROS Statement are negative. Past Medical History Past Medical History: Syncope Additional Past Medical History / Comment(s): Syncopal episodes past 5 years, TTT on 04/16/18 pt states heart paused and she was given CPR, low back pain, verti go History of Any Multi-Drug Resistant Organisms: None Reported Past Surgical History: Adenoidectomy, Section, Tonsillectomy Additional Past Surgical History / Comment(s): 04/16/18 TTT, oral surgery as a child Past Anesthesia/Blood Transfusion Reactions: No Reported Reaction Past Psychological History: No Psychological Hx Reported Smoking Status: Never smoker Past Alcohol Use History: None Reported Past Drug Use History: None Reported - Past Family History Father Family Medical History: Cancer Mother Additional Family Medical History / Comment(s): Sinus problems and DDD. General Exam Limitations: no limitations General appearance: alert, in no apparent distress Head exam: Present: atraumatic, normocephalic, normal inspection Eye exam: Present: normal appearance, PERRL, EOMI. Absent: scleral icterus, conjunctival injection, periorbital swelling (Negative Finney sign) ENT exam: Present: normal exam, normal oropharynx, mucous membranes moist, TM's normal bilaterally (Negative hemotympanum), normal external ear exam Neck exam: Present: normal inspection. Absent: tenderness, meningismus, lymphadenopathy Respiratory exam: Present: normal lung sounds bilaterally. Absent: respiratory distress, wheezes, rales, rhonchi, stridor Cardiovascular Exam: Present: regular rate, normal rhythm, normal heart sounds. Absent: systolic murmur, diastolic murmur, rubs, gallop, clicks GI/Abdominal exam: Present: soft, normal bowel sounds. Absent: distended, tende rness, guarding, rebound, rigid Neurological exam: Present: alert, oriented X3, CN II-XII intact, normal gait Psychiatric exam: Present: normal affect, normal mood Course Vital Signs 06/20/18 06/20/18 06/20/18 17:38 18:30 19:00 Temperature 97.9 F Pulse Rate 69 67 71 Respiratory 16 Rate Blood Pressure 139/88 144/88 149/89 O2 Sat by Pulse 100 99 Oximetry 06/20/18 19:53 Temperature 97.7 F Pulse Rate 78 Respiratory 18 Rate Blood Pressure 148/88 O2 Sat by Pulse 97 Oximetry EKG Findings - EKG Comments: EKG Findings:: Normal sinus rhythm, ventricular rate 70, [place] interval 156, QTC 406, no evidence of Gonzalez Parkinson White for LVH. Medical Decision Making - Medical Decision Making 23-year-old female with a known syncopal disorder presents to the emergency determine for chief complaint of syncope. She states she is passing medications when this occurred at her job. Patient states that usually when she experiences syncope her small business director told her she does not need to be evaluated. However, patient did hit her head this time and has a mild headache so came to the emergency department. Patient well-appearing on exam. No focal neuro deficits. No hematomas present however throughout patient's stay her headache did worsen so I did obtain a CT brain and C-spine which were negative for fracture or hemorrhage. EKG unremarkable, showing a normal sinus rhythm without ST elevation or depression. Chest x-ray negative. Vitals are stable. Patient was given a liter of fluids. Reevaluated patient and patient is feeling better at this time, requesting discharge. Patient will follow up with her small business director Dr. Armas tomorrow. She'll return here if she has any worsening symptoms. - Lab Data Lab Results 06/20/18 06/20/18 Range/Units 17:50 17:50 Urine Color Light Yellow Urine Appearance Clear (Clear) Urine pH 5.5 (5.0-8.0) Ur Specific [place] 1.010 (1.001-1.035) Urine Protein Negative (Negative) Urine Glucose (UA) Negative (Negative) Urine Ketones Negative (Negative) Urine Blood Moderate H (Negative) Urine Nitrite Negative (Negative) Urine Bilirubin Negative (Negative) Urine Urobilinogen <2.0 (<2.0) mg/dL Ur Leukocyte Esterase Small H (Negative) Urine RBC 139 H (0-5) /hpf Urine WBC 6 H (0-5) /hpf Ur Squamous Epith Cells 1 (0-4) /hpf Urine Mucus Rare H (None) /hpf Urine HCG, Qual Not Detected (Not Detectd) Disposition Clinical Impression: Syncope, Head injury Disposition: HOME SELF-CARE Condition: Good Instructions (If sedation given, give patient instructions): Concussion (ED), Syncope (ED) Additional Instructions: Please follow up with primary care and cardiology in one to 2 days. Please ret urn here to the emergency department if you have any worsening symptoms. Is patient prescribed a controlled substance at d/c from ED?: No Referrals: Richard Guerra MD [Primary Care Provider] - 1-2 days Scooby Aguilera MD [STAFF PHYSICIAN] - 1-2 days Time of Disposition: 20:46
[2018-06-20 18:33] LABS: Appearance,Urine Clear (Clear); Bilirubin,Urine Negative (Negative); Blood,Urine Moderate (Negative); Color,Urine Light Yellow; Glucose,Urine (UA) Negative (Negative); Ketones,Urine Negative (Negative); Leukocyte Esterase,Urine Small (Negative); Mucus,Urine Rare /hpf; Nitrite,Urine Negative (Negative); PH, Urine 5.5 (5.0-8.0); Protein,Urine Negative (Negative); RBC,Urine 139 /hpf (0-5); Squamous Epithelial Cell,Urine 1 /hpf (0-4); Urobilinogen,Urine <2.0 mg/dL (<2.0); WBC,Urine 6 /hpf (0-5)
--- NOTE | 2018-06-20 18:56 | XR ---
EXAMINATION TYPE: XR chest 2V DATE OF EXAM: 06/20/2018 COMPARISON: 04/17/2018 HISTORY: Syncope TECHNIQUE: Frontal and lateral views of the chest are obtained. FINDINGS: Heart and mediastinum are normal. Lungs are clear. Diaphragm is normal. Bony thorax appear s normal. There are chest leads. IMPRESSION: Normal chest. No change.
--- NOTE | 2018-06-20 19:48 | CT ---
EXAMINATION TYPE: CT brain woody schwartz DATE OF EXAM: 06/20/2018 COMPARISON: 11/29/2014 HISTORY: Syncope w/ LOC. Pt hit back side of head on concrete. Pt has hx of syncope CT DLP: 1309.3 mGycm Automated exposure control for dose reduction was used. TECHNIQUE: CT scan of the head and cervical spine are performed without contrast. FINDINGS: Ventricles of normal size. There is no mass effect nor midline shift. There is no sign of intracranial hemorrhage. There is a large cisterna magna which is probably normal variation. Calvari um is intact. There is a large empty sella turcica. Cervical vertebra have normal spacing and alignment. Posterior elements are intact. Facet joints appe ar normal. Prevertebral soft tissues appear within normal limits. The skull base is intact. IMPRESSION: Negative CT scan of the brain. No change. Negative CT scan cervical spine. No change.
[2018-06-20 19:54] VITALS: PULSE 78; TEMP 97.7
[2018-06-20] MEDS ORDERED: KETOROLAC 30 MG/ML 1 ML VIAL IVP STA (20:44)
[2018-06-20 21:00] VITALS: BP 146/78; RESP 20
== END 2018-06-20 21:00 | disposition home or self-care (01) ==
LOC: EC 17:37
DX: S09.90XA Unspecified injury of head, initial encounter (principal); R55 Syncope and collapse; Z88.0 Allergy status to penicillin; Z88.2 Allergy status to sulfonamides; Z88.8 Allergy status to other drugs, medicaments and biological substances; Z79.3 Long term (current) use of hormonal contraceptives; Z79.899 Other long term (current) drug therapy; W01.10XA Fall on same level from slipping, tripping and stumbling with subsequent striking against unspecified object, initial encounter; Y92.69 Other specified industrial and construction area as the place of occurrence of the external cause
CPT/HCPCS: 93005; 81001; 81025; 71046; 72125; 70450; 99285; 96374; 96361 ×2; J1885

== ENCOUNTER 2018-07-25 13:02 | Day surgery (SDC) | payer BC, OTHER ==
[2018-07-22 12:07] VITALS: BMI 29.8
[2018-07-25] MEDS ORDERED: CLINDAMYCIN 900 MG in DEXTROSE 5% IN WATER 50 ML IVPB ONE ×2 (13:19)
[2018-07-25] MEDS ORDERED: SODIUM CHLORIDE 0.9% 1,000 ML IV SCH ×2 (13:19)
[2018-07-25 13:32] VITALS: TEMP 97.9
[2018-07-25] MEDS ORDERED: LIDOCAINE 1% INJ 10MG/ML (20 ML MDV) SQ ONE (13:49)
--- NOTE | 2018-07-25 14:16 | P.PCN ---
Preoperative Diagnosis: Loop monitor implant Primary physicians: Richard Maria Tapper Bit: Dr. Armas Indication: Recurrent syncope, typical vasopressor syncope with sinus tachycardia followed by hypotension followed by severe bradycardia with pauses Patient was brought to the EP lab in a fasting state. Written informed consent was obtained prior to the procedure. The left pectoral area was prepped and draped per protocol. Intravenous antibiotic was administered preoperatively. A subcutaneous Loop monitor was implanted successfully and the wound was closed per protocol. The device was programmed to detect significant saeid- arrhythmic and tachy-arrhythmic events, per protocol. Device and programming details: Syncope protocol Patient underwent EP procedure under conscious sedation/moderate sedation, monitoring of the level of consciousness and physiologic parameters including but not limited to vital signs and oxygenation. Patient tolerated the procedure well without any acute complications. Start time: 1344 Stop time: 1406
--- NOTE | 2018-07-25 14:18 | P.PRLE ---
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 Nadolol to suppress the sinus tachycardia #2 avoid a permanent pacemaker implantation Since I started her on nadolol, she has not had any further spells. However today I went ahead and implanted a loop monitor just to monitor her for further episodes of asystole I will keep you posted on her progress Thank you for entrusting me with the care of the patient Warm regards Sincerely Elio Danielson
[2018-07-25 14:43] VITALS: BP 132/72; PULSE 82; RESP 16
== END 2018-07-25 14:45 | disposition home or self-care (01) ==
LOC: CATHEP 13:02
PROVIDERS: ATTEND Internal Medicine Clinical Cardiac Electrophysiology
DX: R55 Syncope and collapse (principal); R00.1 Bradycardia, unspecified; I10 Essential (primary) hypertension; Z82.49 Family history of ischemic heart disease and other diseases of the circulatory system; Z79.899 Other long term (current) drug therapy; Z88.0 Allergy status to penicillin; Z88.2 Allergy status to sulfonamides; Z88.8 Allergy status to other drugs, medicaments and biological substances
CPT/HCPCS: 33285; 81025; C1764; J2001

== ENCOUNTER 2018-09-18 16:19 | Emergency (ER) | payer BC, OTHER ==
[2018-09-18] MEDS ORDERED: SODIUM CHLORIDE 0.9% 1,000 ML IV STA (16:34)
--- NOTE | 2018-09-18 16:44 | ED ---
Syncope HPI - General Chief Complaint: Syncope Stated Complaint: Near syncope Time Seen by Provider: 09/18/18 16:27 Source: patient, RN notes reviewed, old records reviewed Mode of arrival: EMS Limitations: no limitations - History of Present Illness Initial Comments: This is a 21-year-old female the ER for evaluation, patient presents from work for evaluation regarding near syncopal event altered mental status difficulty with thought process nonspecific numbness and tingling. Patient does have a significant medical history of recurrent syncopal events. Currently with loop recorder. Patient denying any headache chest pain shortness breath or abdominal pain. She occasionally has episodic headache as of lately. No recent change in medications. This episodes happened at work persisted although improving to arrival in the ER MD Complaint: almost passed out -: days(s) Prodromal Symptoms: none Witnessed: yes - by EMS Injuries Sustained Associated with Event: None Current Symptoms: none History: previous syncopal episode Context: at rest Treatments Prior to Arrival: none - Related Data Home Medications Medication Instructions Recorded Confirmed Nadolol [Corgard] 20 mg PO DAILY 09/18/18 09/18/18 Allergies Allergy/AdvReac Type Severity Reaction Status Date / Time gabapentin [From Neurontin] Allergy Anaphylaxis Verified 09/18/18 17:07 Penicillins Allergy stopped Verified 09/18/18 17:07 breathing Sulfa (Sulfonamide AdvReac Dyspnea,alem Verified 09/18/18 17:07 Antibiotics) h Review of Systems ROS Statement: Those systems with pertinent positive or pertinent negative responses have been documented in the HPI. ROS Other: All systems not noted in ROS Statement are negative. Past Medical History Past Medical History: Syncope Additional Past Medical History / Comment(s): Syncopal episodes past 5 years. Tilt table test on 04/16/18 pt states heart paused and she was given CPR. Low back pain, vertigo. BP fluctuates. History of Any Multi-Drug Resistant Organisms: None Reported Past Surgical History: Adenoidectomy, Section, Tonsillectomy Additional Past Surgical History / Comment(s): 04/16/18 Tilt Table Test, oral surgery as a child. Past Anesthesia/Blood Transfusion Reactions: No Reported Reaction Past Psychological History: No Psychological Hx Reported Smoking Status: Never smoker Past Alcohol Use History: None Reported Past Drug Use History: None Reported - Past Family History Father Family Medical History: Cancer Mother Additional Family Medical History / Comment(s): Sinus problems and DDD. General Exam Limitations: no limitations General appearance: alert, in no apparent distress Head exam: Present: atraumatic, normocephalic, normal inspection Eye exam: Present: normal appearance, PERRL, EOMI. Absent: scleral icterus, conjunctival injection, periorbital swelling ENT exam: Present: normal exam, mucous membranes moist Neck exam: Present: normal inspection. Absent: tenderness, meningismus, lymphadenopathy Respiratory exam: Present: normal lung sounds bilaterally. Absent: respiratory distress, wheezes, rales, rhonchi, stridor Cardiovascular Exam: Present: regular rate, normal rhythm, normal heart sounds. Absent: systolic murmur, diastolic murmur, rubs, gallop, clicks GI/Abdominal exam: Present: soft, normal bowel sounds. Absent: distended, tenderness, guarding, rebound, rigid Extremities exam: Present: normal inspection, full ROM, normal capillary refill. Absent: tenderness, pedal edema, joint swelling, calf tenderness Back exam: Present: normal inspection Neurological exam: Present: alert, oriented X3, CN II-XII intact Psychiatric exam: Present: normal affect, normal mood Skin exam: Present: warm, dry, intact, normal color. Absent: rash Course Vital Signs 09/18/18 09/18/18 09/18/18 16:28 16:38 17:00 Temperature 98.4 F Pulse Rate 74 65 Pulse Rate [ Machine Joint Cutter ] Respiratory 16 40 H 5 L Rate Blood Pressure 143/89 136/100 O2 Sat by Pulse 100 99 Oximetry 09/18/18 09/18/18 09/18/18 17:11 17:30 18:00 Temperature Pulse Rate 71 71 Pulse Rate [ 69 Machine Joint Cutter ] Respiratory 8 L 0 L Rate Blood Pressure 146/106 164/107 O2 Sat by Pulse 100 Oximetry 09/18/18 09/18/18 09/18/18 18:30 19:00 19:20 Temperature Pulse Rate 66 74 74 Pulse Rate [ Machine Joint Cutter ] Respiratory 0 L 12 12 Rate Blood Pressure 142/90 148/91 148/91 O2 Sat by Pulse 99 99 Oximetry 09/18/18 09/18/18 19:24 20:58 Temperature 98 F 98 F Pulse Rate 69 80 Pulse Rate [ Machine Joint Cutter ] Respiratory 18 18 Rate Blood Pressure 148/90 137/86 O2 Sat by Pulse 99 99 Oximetry - Reevaluation(s) Reevaluation #1: Medical record is reviewed Patient's symptoms and remained resolved here in the ER no feelings of syncope, no neurological complaints no focal deficits EKG Findings - EKG Comments: EKG Findings:: EKG shows sinus rhythm rate of 64, FL 150, QRS 78, QTc 398 Medical Decision Making - Medical Decision Making 23 female the ER for evaluation, patient resents today for evaluation regarding syncope and near syncope. Patient not feeling well nonspecific neurological complaints. This point patient is asymptomatic does not want to stay for furth er evaluation and she is been going 6 significantly evaluation regarding her syncopal events. Patient will be discharged home - Lab Data Result diagrams: 09/18/18 16:50 09/18/18 16:50 Lab Results 09/18/18 09/18/18 09/18/18 Range/Units 16:50 16:50 16:50 WBC 6.9 (3.8-10.6) k/uL RBC 4.77 (3.80-5.40) m/uL Hgb 13.8 (11.4-16.0) gm/dL Hct 40.5 (34.0-46.0) % MCV 84.9 (80.0-100.0) fL MCH 28.9 (25.0-35.0) pg MCHC 34.0 (31.0-37.0) g/dL RDW 14.8 (11.5-15.5) % Plt Count 230 (150-450) k/uL Neutrophils % 59 % Lymphocytes % 30 % Monocytes % 5 % Eosinophils % 4 % Basophils % 1 % Neutrophils # 4.0 (1.3-7.7) k/uL Lymphocytes # 2.0 (1.0-4.8) k/uL Monocytes # 0.4 (0-1.0) k/uL Eosinophils # 0.3 (0-0.7) k/uL Basophils # 0.1 (0-0.2) k/uL D-Dimer 0.57 (<0.60) mg/L FEU Sodium 140 (137-145) mmol/L Potassium 4.0 (3.5-5.1) mmol/L Chloride 103 (98-107) mmol/L Carbon Dioxide 28 (22-30) mmol/L Anion Gap 9 mmol/L BUN 15 (7-17) mg/dL Creatinine 0.86 (0.52-1.04) mg/dL Est GFR (CKD-EPI)AfAm >90 (>60 ml/min/1.73 sqM) Est GFR (CKD-EPI)NonAf >90 (>60 ml/min/1.73 sqM) Glucose 89 (74-99) mg/dL Calcium 9.4 (8.4-10.2) mg/dL Phosphorus 4.2 (2.5-4.5) mg/dL Magnesium 2.1 (1.6-2.3) mg/dL Total Bilirubin 0.4 (0.2-1.3) mg/dL AST 20 (14-36) U/L ALT 12 (9-52) U/L Alkaline Phosphatase 52 (38-126) U/L Troponin I (0.000-0.034) ng/mL NT-Pro-B Natriuret Pep pg/mL Total Protein 7.7 (6.3-8.2) g/dL Albumin 4.4 (3.5-5.0) g/dL Urine Color Urine Appearance (Clear) Urine pH (5.0-8.0) Ur Specific [place] (1.001-1.035) Urine Protein (Negative) Urine Glucose (UA) (Negative) Urine Ketones (Negative) Urine Blood (Negative) Urine Nitrite (Negative) Urine Bilirubin (Negative) Urine Urobilinogen (<2.0) mg/dL Ur Leukocyte Esterase (Negative) Urine RBC (0-5) /hpf Urine WBC (0-5) /hpf Ur Squamous Epith Cells (0-4) /hpf Urine Bacteria (None) /hpf Urine Mucus (None) /hpf Urine HCG, Qual (Not Detectd) 09/18/18 09/18/18 09/18/18 Range/Units 16:50 16:50 19:41 WBC (3.8-10.6) k/uL RBC (3.80-5.40) m/uL Hgb (11.4-16.0) gm/dL Hct (34.0-46.0) % MCV (80.0-100.0) fL MCH (25.0-35.0) pg MCHC (31.0-37.0) g/dL RDW (11.5-15.5) % Plt Count (150-450) k/uL Neutrophils % % Lymphocytes % % Monocytes % % Eosinophils % % Basophils % % Neutrophils # (1.3-7.7) k/uL Lymphocytes # (1.0-4.8) k/uL Monocytes # (0-1.0) k/uL Eosinophils # (0-0.7) k/uL Basophils # (0-0.2) k/uL D-Dimer (<0.60) mg/L FEU Sodium (137-145) mmol/L Potassium (3.5-5.1) mmol/L Chloride (98-107) mmol/L Carbon Dioxide (22-30) mmol/L Anion Gap mmol/L BUN (7-17) mg/dL Creatinine (0.52-1.04) mg/dL Est GFR (CKD-EPI)AfAm (>60 ml/min/1.73 sqM) Est GFR (CKD-EPI)NonAf (>60 ml/min/1.73 sqM) Glucose (74-99) mg/dL Calcium (8.4-10.2) mg/dL Phosphorus (2.5-4.5) mg/dL Magnesium (1.6-2.3) mg/dL Total Bilirubin (0.2-1.3) mg/dL AST (14-36) U/L ALT (9-52) U/L Alkaline Phosphatase (38-126) U/L Troponin I <0.012 (0.000-0.034) ng/mL NT-Pro-B Natriuret Pep 72 pg/mL Total Protein (6.3-8.2) g/dL Albumin (3.5-5.0) g/dL Urine Color Urine Appearance (Clear) Urine pH (5.0-8.0) Ur Specific [place] (1.001-1.035) Urine Protein (Negative) Urine Glucose (UA) (Negative) Urine Ketones (Negative) Urine Blood (Negative) Urine Nitrite (Negative) Urine Bilirubin (Negative) Urine Urobilinogen (<2.0) mg/dL Ur Leukocyte Esterase (Negative) Urine RBC (0-5) /hpf Urine WBC (0-5) /hpf Ur Squamous Epith Cells (0-4) /hpf Urine Bacteria (None) /hpf Urine Mucus (None) /hpf Urine HCG, Qual Not Detected (Not Detectd) 09/18/18 Range/Units 19:41 WBC (3.8-10.6) k/uL RBC (3.80-5.40) m/uL Hgb (11.4-16.0) gm/dL Hct (34.0-46.0) % MCV (80.0-100.0) fL MCH (25.0-35.0) pg MCHC (31.0-37.0) g/dL RDW (11.5-15.5) % Plt Count (150-450) k/uL Neutrophils % % Lymphocytes % % Monocytes % % Eosinophils % % Basophils % % Neutrophils # (1.3-7.7) k/uL Lymphocytes # (1.0-4.8) k/uL Monocytes # (0-1.0) k/uL Eosinophils # (0-0.7) k/uL Basophils # (0-0.2) k/uL D-Dimer (<0.60) mg/L FEU Sodium (137-145) mmol/L Potassium (3.5-5.1) mmol/L Chloride (98-107) mmol/L Carbon Dioxide (22-30) mmol/L Anion Gap mmol/L BUN (7-17) mg/dL Creatinine (0.52-1.04) mg/dL Est GFR (CKD-EPI)AfAm (>60 ml/min/1.73 sqM) Est GFR (CKD-EPI)NonAf (>60 ml/min/1.73 sqM) Glucose (74-99) mg/dL Calcium (8.4-10.2) mg/dL Phosphorus (2.5-4.5) mg/dL Magnesium (1.6-2.3) mg/dL Total Bilirubin (0.2-1.3) mg/dL AST (14-36) U/L ALT (9-52) U/L Alkaline Phosphatase (38-126) U/L Troponin I (0.000-0.034) ng/mL NT-Pro-B Natriuret Pep pg/mL Total Protein (6.3-8.2) g/dL Albumin (3.5-5.0) g/dL Urine Color Yellow Urine Appearance Clear (Clear) Urine pH 6.5 (5.0-8.0) Ur Specific [place] 1.016 (1.001-1.035) Urine Protein Negative (Negative) Urine Glucose (UA) Negative (Negative) Urine Ketones Negative (Negative) Urine Blood Negative (Negative) Urine Nitrite Negative (Negative) Urine Bilirubin Negative (Negative) Urine Urobilinogen <2.0 (<2.0) mg/dL Ur Leukocyte Esterase Small H (Negative) Urine RBC 1 (0-5) /hpf Urine WBC 6 H (0-5) /hpf Ur Squamous Epith Cells 1 (0-4) /hpf Urine Bacteria Rare H (None) /hpf Urine Mucus Rare H (None) /hpf Urine HCG, Qual (Not Detectd) - Radiology Data Radiology results: report reviewed (CT brain CT head and neck is negative), image reviewed Disposition Clinical Impression: Syncope Disposition: HOME SELF-CARE Condition: Good Instructions (If sedation given, give patient instructions): Syncope (ED) Is patient prescribed a controlled substance at d/c from ED?: No Referrals: Richard Guerra MD [Primary Care Provider] - 1-2 days
[2018-09-18 17:03] LABS: Basophils # (A) 0.1 k/uL (0-0.2); Basophils % (A) 1 %; Eosinophils # (A) 0.3 k/uL (0-0.7); Eosinophils % (A) 4 %; HCT 40.5 % (34.0-46.0); HGB 13.8 gm/dL (11.4-16.0); Lymphocytes % (A) 30 %; MCH 28.9 pg (25.0-35.0); MCV 84.9 fL (80.0-100.0); Mean Platelet Volume 8.4; Monocytes # (A) 0.4 k/uL (0-1.0); Monocytes % (A) 5 %; Neutrophils % (A) 59 %; Platelet Count 230 k/uL (150-450); RBC 4.77 m/uL (3.80-5.40); RDW 14.8 % (11.5-15.5); WBC 6.9 k/uL (3.8-10.6)
[2018-09-18 17:17] LABS: ALT 12 U/L (9-52); AST 20 U/L (14-36); African American GFR (CKD) >90 (>60 ml/min/1.73 sqM); Albumin 4.4 g/dL (3.5-5.0); Alkaline Phosphatase 52 U/L (38-126); Anion Gap 9 mmol/L; Blood Urea Nitrogen 15 mg/dL (7-17); Calcium 9.4 mg/dL (8.4-10.2); Carbon Dioxide 28 mmol/L (22-30); Chloride 103 mmol/L (98-107); Glucose 89 mg/dL (74-99); Magnesium 2.1 mg/dL (1.6-2.3); Non-African American GFR(CKD) >90 (>60 ml/min/1.73 sqM); Phosphorus 4.2 mg/dL (2.5-4.5); Sodium 140 mmol/L (137-145); Total Bilirubin 0.4 mg/dL (0.2-1.3); Total Protein 7.7 g/dL (6.3-8.2)
[2018-09-18 19:25] VITALS: RESP 18; TEMP 98
[2018-09-18 19:50] LABS: Appearance,Urine Clear (Clear); Bacteria,Urine Rare /hpf; Bilirubin,Urine Negative (Negative); Blood,Urine Negative (Negative); Color,Urine Yellow; Glucose,Urine (UA) Negative (Negative); Ketones,Urine Negative (Negative); Leukocyte Esterase,Urine Small (Negative); Mucus,Urine Rare /hpf; Nitrite,Urine Negative (Negative); PH, Urine 6.5 (5.0-8.0); Protein,Urine Negative (Negative); RBC,Urine 1 /hpf (0-5); Specific Gravity,Urine 1.016 (1.001-1.035); Squamous Epithelial Cell,Urine 1 /hpf (0-4); Urobilinogen,Urine <2.0 mg/dL (<2.0); WBC,Urine 6 /hpf (0-5)
--- NOTE | 2018-09-18 20:52 | CT ---
EXAMINATION: CT brain wo con DATE AND TIME: 09/18/2018 8:39 PM CLINICAL INDICATION: Slurring of words, confusion; Pain TECHNIQUE: Standard departmental protocol.; 1073; COMPARISON: CT 06/20/2018 FINDINGS: The calvarium is intact. There is no intracranial hemorrhage. There is no intracranial mass or mass effect. No definite new intra-axial attenuation defect. Congenital variant prominent cisterna magna redemonstrated. The paranasal sinuses, middle ear cavities, and mastoid sinus air cells are clear. The orbits are unremarkable. IMPRESSION: NO ACUTE PROCESS.
--- NOTE | 2018-09-18 20:53 | XR ---
EXAMINATION: XR chest 2V DATE AND TIME: 09/18/2018 8:19 PM CLINICAL INDICATION: PHH; Pain TECHNIQUE: Departmental protocol COMPARISON: 06/20/2018 FINDINGS: The lungs are clear. The pleural spaces are negative. The cardiac silhouette is not enlarged. The remainder of the mediastinal silhouette is unremarkable. The skeletal structures and soft tissues are negative for acute findings. IMPRESSION: NO ACUTE PROCESS.
--- NOTE | 2018-09-18 20:57 | CT ---
EXAMINATION TYPE: CT angio head neck with contrast and with 3-D reconstruction renderings DATE OF EXAM: 09/18/2018 HISTORY: PT near syncope, w/ slurring speech, confusion. Hx loop recorder COMPARISON: CT head without contrast completed just prior to this examination. CT DLP: 486 mGycm. Automated Exposure Control for Dose Reduction was Utilized. TECHNIQUE: CTA scan of the neck is performed with IV Contrast, patient injected with 50 mL of Isovue 370, axial images are obtained, coronal and sagittal reformatted images are reviewed. Three-D recons tructed images are created on an independent workstation and reviewed. FINDINGS: The bilateral carotid arterial systems are widely patent without dissection or aneurysm or stenosis. The intracranial anterior circulation is widely patent without abnormalities. The bilateral vertebral arterial systems are widely patent without dissection or aneurysm or stenosis . The intracranial posterior circulation is widely patent without abnormalities. The dural venous sinuses and the venous structures of the neck are negative. No incidental soft tissue neck findings or intracranial findings. No focal skeletal, superior mediast inal, or lung apical findings. IMPRESSION: No significant abnormality is seen.
[2018-09-18 21:00] VITALS: BP 137/86; PULSE 80
== END 2018-09-18 21:20 | disposition home or self-care (01) ==
LOC: EC 16:19
DX: R55 Syncope and collapse (principal); Z88.0 Allergy status to penicillin; Z88.2 Allergy status to sulfonamides; Z88.8 Allergy status to other drugs, medicaments and biological substances; Z79.899 Other long term (current) drug therapy; Z53.20 Procedure and treatment not carried out because of patient's decision for unspecified reasons
CPT/HCPCS: 99285; 96360; 96361 ×3; 36415; 93005; 85379; 83880; 80053; 83735; 84100; 84484; 85025; 81001; 81025; 71046; 70496; 70450; 70498; Q9967

== ENCOUNTER 2018-10-22 19:55 | Emergency (ER) | payer BC, OTHER ==
[2018-10-22] MEDS ORDERED: SODIUM CHLORIDE 0.9% 500 ML 500 ML IV STA (20:30)
[2018-10-22 20:41] LABS: Basophils # (A) 0.1 k/uL (0-0.2); Basophils % (A) 1 %; Eosinophils # (A) 0.3 k/uL (0-0.7); Eosinophils % (A) 3 %; HGB 13.6 gm/dL (11.4-16.0); Lymphocytes # (A) 2.6 k/uL (1.0-4.8); Lymphocytes % (A) 25 %; MCH 28.5 pg (25.0-35.0); MCHC 34.1 g/dL (31.0-37.0); MCV 83.6 fL (80.0-100.0); Mean Platelet Volume 8.3; Monocytes # (A) 0.3 k/uL (0-1.0); Monocytes % (A) 3 %; Neutrophils # (A) 7.2 k/uL (1.3-7.7); Neutrophils % (A) 67 %; Platelet Count 233 k/uL (150-450); RBC 4.78 m/uL (3.80-5.40); RDW 15.3 % (11.5-15.5); WBC 10.7 k/uL (3.8-10.6)
[2018-10-22 20:49] LABS: INR 0.9 (<1.2); Prothrombin Time 9.9 sec (9.0-12.0)
[2018-10-22 20:50] LABS: Partial Thromboplastin Time 27.7 sec (22.0-30.0)
[2018-10-22 20:56] LABS: Appearance,Urine Clear (Clear); Bilirubin,Urine Negative (Negative); Blood,Urine Negative (Negative); Color,Urine Yellow; Glucose,Urine (UA) Negative (Negative); Ketones,Urine Negative (Negative); Leukocyte Esterase,Urine Moderate (Negative); Mucus,Urine Rare /hpf; Nitrite,Urine Negative (Negative); PH, Urine 5.5 (5.0-8.0); Protein,Urine Negative (Negative); RBC,Urine 2 /hpf (0-5); Specific Gravity,Urine 1.024 (1.001-1.035); Squamous Epithelial Cell,Urine 4 /hpf (0-4); Urobilinogen,Urine <2.0 mg/dL (<2.0); WBC,Urine 6 /hpf (0-5)
--- NOTE | 2018-10-22 21:25 | XR ---
EXAMINATION: XR chest 2V DATE AND TIME: 10/22/2018 9:21 PM CLINICAL INDICATION: PHH; syncope TECHNIQUE: Departmental protocol COMPARISON: 09/18/2018 FINDINGS: The lungs are clear. The pleural spaces are negative. The cardiac silhouette is not enlarged. The remainder of the mediastinal silhouette is unremarkable. The skeletal structures and soft tissues are negative for acute findings. IMPRESSION: NO ACUTE PROCESS.
--- NOTE | 2018-10-22 21:27 | XR ---
PROCEDURE: XR lumbar spine - 3V DATE AND TIME: 10/22/2018 9:21 PM CLINICAL INDICATION: PHH; fall TECHNIQUE: Department protocol COMPARISON: None FINDINGS: There is no fracture or malalignment. The soft tissues are unremarkable. IMPRESSION: NO ACUTE PROCESS.
[2018-10-22 21:28] LABS: ALT 15 U/L (9-52); AST 47 U/L (14-36); African American GFR (CKD) >90 (>60 ml/min/1.73 sqM); Albumin 4.6 g/dL (3.5-5.0); Alkaline Phosphatase 58 U/L (38-126); Anion Gap 13 mmol/L; Blood Urea Nitrogen 19 mg/dL (7-17); Calcium 9.8 mg/dL (8.4-10.2); Carbon Dioxide 21 mmol/L (22-30); Chloride 105 mmol/L (98-107); Glucose 91 mg/dL (74-99); Sodium 139 mmol/L (137-145); Total Bilirubin 0.6 mg/dL (0.2-1.3); Total Protein 8.1 g/dL (6.3-8.2)
--- NOTE | 2018-10-22 21:34 | CT ---
EXAMINATION TYPE: CT brain woody wo con DATE OF EXAM: 10/22/2018 COMPARISON: 09/18/2018 CT HISTORY: fell hitting head following syncopal episode. CT DLP: 1351.6 mGycm Automated exposure control for dose reduction was used. TECHNIQUE: CT scan of the head and cervical spine are performed without contrast. FINDINGS: There is no acute intracranial hemorrhage, mass effect, or midline shift identified. The ventricles and sulci are within normal limits in size. The globes are intact and the visualized sin uses are clear. Cervical spine is visualized in its entirety from C1 through upper thoracic levels and demonstrates s atisfactory alignment without evidence of acute fracture or dislocation. Prevertebral soft tissue ap pears within normal limits. The C1-C2 articulation is unremarkable. IMPRESSION: 1. There is no acute fracture or dislocation evident in the cervical spine. 2. No acute intracranial hemorrhage, mass effect, or midline shift is seen.
--- NOTE | 2018-10-22 22:23 | ED ---
General Adult HPI - General Chief complaint: Syncope Stated complaint: Syncope Source: EMS Mode of arrival: EMS Limitations: no limitations - History of Present Illness Initial comments: The patient is a 23-year-old female with past medical history of neurocardiogenic syncope who presents to the emergency room after a syncopal episode. Patient states that she was at work washing dishes when she had a syncopal episode. She fell to the ground and hit the back of her head. She is unsure how long she was unconscious. She awoke and was acutely alert. EMS was called. The patient is currently under the care of Dr. Jerzy Aguilera. She does have a loop recorder in place. She has an appointment with Dr. Bertrand tomorrow to determine whether she needs a pacemaker. She reports to multiple syncopal episodes in the past. Last of which was at the end of September. She is admitting to associated chest pain she describes as a throbbing sensation in the center of her chest. Denies any associated nausea, vomiting or diaphoresis. No ripping or tearing sensation to her back. She also admits to a mild posterior headache. No neck pain or stiffness. Also admits to chronic lumbar back pain which she thinks was exacerbated by laying on the ground for an extended period of time and EMS came. She has any unilateral numbness or weakness. No weakness in her lower extremity. There is no seizure-like activity. No loss of bowel or bladder. She denies any saddle anesthesia. Denies possibility been . There are no other alleviating, precipitating or modifying factors. - Related Data Home Medications Medication Instructions Recorded Confirmed Nadolol [Corgard] 20 mg PO DIRECTED 09/18/18 10/22/18 [place] 1 tab PO DAILY 10/22/18 10/22/18 Allergies Allergy/AdvReac Type Severity Reaction Status Date / Time gabapentin [From Neurontin] Allergy Anaphylaxis Verified 09/18/18 17:07 Penicillins Allergy stopped Verified 09/18/18 17:07 breathing Sulfa (Sulfonamide AdvReac Dyspnea,alem Verified 09/18/18 17:07 Antibiotics) h Review of Systems ROS Statement: Those systems with pertinent positive or pertinent negative responses have been documented in the HPI. ROS Other: All systems not noted in ROS Statement are negative. Past Medical History Past Medical History: Syncope Additional Past Medical History / Comment(s): Syncopal episodes past 5 years. Tilt table test on 04/16/18 pt states heart paused and she was given CPR. Low back pain, vertigo. BP fluctuates. History of Any Multi-Drug Resistant Organisms: None Reported Past Surgical History: Adenoidectomy, Section, Tonsillectomy Additional Past Surgical History / Comment(s): 04/16/18 Tilt Table Test, oral surgery as a child. Past Anesthesia/Blood Transfusion Reactions: No Reported Reaction Past Psychological History: No Psychological Hx Reported Smoking Status: Never smoker Past Alcohol Use History: None Reported Past Drug Use History: None Reported - Past Family History Father Family Medical History: Cancer Mother Additional Family Medical History / Comment(s): Sinus problems and DDD. General Exam Limitations: no limitations Course Vital Signs 10/22/18 10/22/18 10/22/18 20:00 22:04 22:45 Temperature 99.0 F 97.2 F L 98.0 F Pulse Rate 86 71 80 Respiratory 18 16 18 Rate Blood Pressure 151/94 130/94 122/81 O2 Sat by Pulse 100 100 99 Oximetry EKG Findings - EKG Comments: EKG Findings:: EKG demonstrates normal sinus rhythm with a ventricular rate of 82. ID interval 154. QRS 82. QTC of 4:15. No acute ST segment elevations or depressions concerning for ischemic changes Medical Decision Making - Medical Decision Making Upon arrival the patient is placed into room 2. She is to continuous pulse ox and cardiac monitoring. A 12-lead EKG is performed on the patient. I did recommend laboratory studies. I also recommended a CT of the patient's brain and C-spine as well as a chest x-ray and a lumbosacral x-ray. The patient did agree to this. Upon return results I did discuss them with the patient. Laboratory studies are essentially unremarkable. I did offer hospital admission in order to be evaluated by audiology tomorrow. The patient states that she feels comfortable going home at this time and she wants to follow up with Dr. Bertrand office at her scheduled appointment. I informed the patient she has any new or worsening symptoms that she should come back to the emergency room. The patient was in agreement with the treatment and she was discharged home in stable condition - Lab Data Result diagrams: 10/22/18 20:12 10/22/18 20:12 Lab Results 10/22/18 10/22/18 10/22/18 Range/Units 20:12 20:12 20:12 WBC 10.7 H (3.8-10.6) k/uL RBC 4.78 (3.80-5.40) m/uL Hgb 13.6 (11.4-16.0) gm/dL Hct 40.0 (34.0-46.0) % MCV 83.6 (80.0-100.0) fL MCH 28.5 (25.0-35.0) pg MCHC 34.1 (31.0-37.0) g/dL RDW 15.3 (11.5-15.5) % Plt Count 233 (150-450) k/uL Neutrophils % 67 % Lymphocytes % 25 % Monocytes % 3 % Eosinophils % 3 % Basophils % 1 % Neutrophils # 7.2 (1.3-7.7) k/uL Lymphocytes # 2.6 (1.0-4.8) k/uL Monocytes # 0.3 (0-1.0) k/uL Eosinophils # 0.3 (0-0.7) k/uL Basophils # 0.1 (0-0.2) k/uL PT 9.9 (9.0-12.0) sec INR 0.9 (<1.2) APTT 27.7 (22.0-30.0) sec Sodium 139 (137-145) mmol/L Potassium 4.0 (3.5-5.1) mmol/L Chloride 105 (98-107) mmol/L Carbon Dioxide 21 L (22-30) mmol/L Anion Gap 13 mmol/L BUN 19 H (7-17) mg/dL Creatinine 0.80 (0.52-1.04) mg/dL Est GFR (CKD-EPI)AfAm >90 (>60 ml/min/1.73 sqM) Est GFR (CKD-EPI)NonAf >90 (>60 ml/min/1.73 sqM) Glucose 91 (74-99) mg/dL Calcium 9.8 (8.4-10.2) mg/dL Total Bilirubin 0.6 (0.2-1.3) mg/dL AST 47 H (14-36) U/L ALT 15 (9-52) U/L Alkaline Phosphatase 58 (38-126) U/L Troponin I (0.000-0.034) ng/mL NT-Pro-B Natriuret Pep pg/mL Total Protein 8.1 (6.3-8.2) g/dL Albumin 4.6 (3.5-5.0) g/dL Urine Color Urine Appearance (Clear) Urine pH (5.0-8.0) Ur Specific [place] (1.001-1.035) Urine Protein (Negative) Urine Glucose (UA) (Negative) Urine Ketones (Negative) Urine Blood (Negative) Urine Nitrite (Negative) Urine Bilirubin (Negative) Urine Urobilinogen (<2.0) mg/dL Ur Leukocyte Esterase (Negative) Urine RBC (0-5) /hpf Urine WBC (0-5) /hpf Ur Squamous Epith Cells (0-4) /hpf Urine Mucus (None) /hpf Urine HCG, Qual (Not Detectd) 10/22/18 10/22/18 10/22/18 Range/Units 20:12 20:12 20:50 WBC (3.8-10.6) k/uL RBC (3.80-5.40) m/uL Hgb (11.4-16.0) gm/dL Hct (34.0-46.0) % MCV (80.0-100.0) fL MCH (25.0-35.0) pg MCHC (31.0-37.0) g/dL RDW (11.5-15.5) % Plt Count (150-450) k/uL Neutrophils % % Lymphocytes % % Monocytes % % Eosinophils % % Basophils % % Neutrophils # (1.3-7.7) k/uL Lymphocytes # (1.0-4.8) k/uL Monocytes # (0-1.0) k/uL Eosinophils # (0-0.7) k/uL Basophils # (0-0.2) k/uL PT (9.0-12.0) sec INR (<1.2) APTT (22.0-30.0) sec Sodium (137-145) mmol/L Potassium (3.5-5.1) mmol/L Chloride (98-107) mmol/L Carbon Dioxide (22-30) mmol/L Anion Gap mmol/L BUN (7-17) mg/dL Creatinine (0.52-1.04) mg/dL Est GFR (CKD-EPI)AfAm (>60 ml/min/1.73 sqM) Est GFR (CKD-EPI)NonAf (>60 ml/min/1.73 sqM) Glucose (74-99) mg/dL Calcium (8.4-10.2) mg/dL Total Bilirubin (0.2-1.3) mg/dL AST (14-36) U/L ALT (9-52) U/L Alkaline Phosphatase (38-126) U/L Troponin I <0.012 (0.000-0.034) ng/mL NT-Pro-B Natriuret Pep 51 pg/mL Total Protein (6.3-8.2) g/dL Albumin (3.5-5.0) g/dL Urine Color Yellow Urine Appearance Clear (Clear) Urine pH 5.5 (5.0-8.0) Ur Specific [place] 1.024 (1.001-1.035) Urine Protein Negative (Negative) Urine Glucose (UA) Negative (Negative) Urine Ketones Negative (Negative) Urine Blood Negative (Negative) Urine Nitrite Negative (Negative) Urine Bilirubin Negative (Negative) Urine Urobilinogen <2.0 (<2.0) mg/dL Ur Leukocyte Esterase Moderate H (Negative) Urine RBC 2 (0-5) /hpf Urine WBC 6 H (0-5) /hpf Ur Squamous Epith Cells 4 (0-4) /hpf Urine Mucus Rare H (None) /hpf Urine HCG, Qual (Not Detectd) 10/22/18 Range/Units 20:50 WBC (3.8-10.6) k/uL RBC (3.80-5.40) m/uL Hgb (11.4-16.0) gm/dL Hct (34.0-46.0) % MCV (80.0-100.0) fL MCH (25.0-35.0) pg MCHC (31.0-37.0) g/dL RDW (11.5-15.5) % Plt Count (150-450) k/uL Neutrophils % % Lymphocytes % % Monocytes % % Eosinophils % % Basophils % % Neutrophils # (1.3-7.7) k/uL Lymphocytes # (1.0-4.8) k/uL Monocytes # (0-1.0) k/uL Eosinophils # (0-0.7) k/uL Basophils # (0-0.2) k/uL PT (9.0-12.0) sec INR (<1.2) APTT (22.0-30.0) sec Sodium (137-145) mmol/L Potassium (3.5-5.1) mmol/L Chloride (98-107) mmol/L Carbon Dioxide (22-30) mmol/L Anion Gap mmol/L BUN (7-17) mg/dL Creatinine (0.52-1.04) mg/dL Est GFR (CKD-EPI)AfAm (>60 ml/min/1.73 sqM) Est GFR (CKD-EPI)NonAf (>60 ml/min/1.73 sqM) Glucose (74-99) mg/dL Calcium (8.4-10.2) mg/dL Total Bilirubin (0.2-1.3) mg/dL AST (14-36) U/L ALT (9-52) U/L Alkaline Phosphatase (38-126) U/L Troponin I (0.000-0.034) ng/mL NT-Pro-B Natriuret Pep pg/mL Total Protein (6.3-8.2) g/dL Albumin (3.5-5.0) g/dL Urine Color Urine Appearance (Clear) Urine pH (5.0-8.0) Ur Specific [place] (1.001-1.035) Urine Protein (Negative) Urine Glucose (UA) (Negative) Urine Ketones (Negative) Urine Blood (Negative) Urine Nitrite (Negative) Urine Bilirubin (Negative) Urine Urobilinogen (<2.0) mg/dL Ur Leukocyte Esterase (Negative) Urine RBC (0-5) /hpf Urine WBC (0-5) /hpf Ur Squamous Epith Cells (0-4) /hpf Urine Mucus (None) /hpf Urine HCG, Qual Not Detected (Not Detectd) Disposition Clinical Impression: Syncope Disposition: HOME SELF-CARE Condition: Stable Instructions (If sedation given, give patient instructions): Syncope (ED) Additional Instructions: Please follow-up with Dr. Danielson at your appointment tomorrow. Return to the emergency room for any new or worsening symptoms Is patient prescribed a controlled substance at d/c from ED?: No Referrals: Richard Guerra MD [Primary Care Provider] - 1-2 days Time of Disposition: 22:38
[2018-10-22 23:15] VITALS: BP 122/81; PULSE 80; RESP 18; TEMP 98
== END 2018-10-22 22:45 | disposition home or self-care (01) ==
LOC: EC 19:55
DX: R55 Syncope and collapse (principal); R07.9 Chest pain, unspecified; R51 Headache; G89.29 Other chronic pain; M54.5 Low back pain; Z32.02 Encounter for pregnancy test, result negative; Z79.899 Other long term (current) drug therapy; Z88.0 Allergy status to penicillin; Z88.2 Allergy status to sulfonamides; Z88.8 Allergy status to other drugs, medicaments and biological substances
CPT/HCPCS: 36415; 70450; 71046; 72100; 72125; 80053; 81001; 81025; 83880; 84484; 85025; 85610; 85730; 93005; 96360; 96361; 99285

== ENCOUNTER 2018-12-22 08:45 | Emergency (ER) | payer BC, OTHER ==
[2018-12-22 08:55] VITALS: RESP 18; TEMP 98.2
[2018-12-22] MEDS ORDERED: SODIUM CHLORIDE 0.9% 500 ML 500 ML IV STA (09:05)
[2018-12-22] MEDS ORDERED: SODIUM CHLORIDE 0.9% 1,000 ML IV STA (09:05)
--- NOTE | 2018-12-22 09:28 | ED ---
Abdominal Pain HPI - General Chief Complaint: Abdominal Pain Stated Complaint: abd pain; 10 weeks pg Time Seen by Provider: 12/22/18 08:56 Source: patient, RN notes reviewed Mode of arrival: ambulatory Limitations: no limitations - History of Present Illness Initial Comments: 23-year-old female presents emergency Department with chief complaint of abdom inal discomfort, near syncope. Patient states that she is currently 10 weeks 4 days , currently seen Dr. Chang. Patient is A0. Patient states that she was at work today developed some right-sided abdominal pain did not feel well felt that she was in a pass out and went home from work. She not feeling better after she laid down so she presented to the emergency Department. She does admit during her last she had multiple passing out episodes, blood pressure issues and leg swelling. Patient was followed by cardiology in which she had a loop recorder placed. Patient sees Dr. Bertrand. Patient also has been evaluated by neurology. Patient has no complaints of chest pain, palpitations, shortness breath this time. Denies fever, chills, dysuria, vaginal bleeding or vaginal discharge - Related Data Home Medications Medication Instructions Recorded Confirmed Nadolol [Corgard] 20 mg PO DIRECTED 09/18/18 10/22/18 [place] 1 tab PO DAILY 10/22/18 10/22/18 Previous Rx's Medication Instructions Recorded Cephalexin [Keflex] 500 mg PO Q8HR #21 cap 12/22/18 Allergies Allergy/AdvReac Type Severity Reaction Status Date / Time gabapentin [From Neurontin] Allergy Anaphylaxis Verified 12/22/18 08:50 Penicillins Allergy stopped Verified 12/22/18 08:50 breathing Sulfa (Sulfonamide AdvReac Dyspnea,alem Verified 12/22/18 08:50 Antibiotics) h Review of Systems ROS Statement: Those systems with pertinent positive or pertinent negative responses have been documented in the HPI. ROS Other: All systems not noted in ROS Statement are negative. Past Medical History Past Medical History: Syncope Additional Past Medical History / Comment(s): Syncopal episodes past 5 years. Tilt table test on 04/16/18 pt states heart paused and she was given CPR. Low back pain, vertigo. BP fluctuates. History of Any Multi-Drug Resistant Organisms: None Reported Past Surgical History: Adenoidectomy, Section, Tonsillectomy Additional Past Surgical History / Comment(s): 3/5/19 Tilt Table Test, oral surgery as a child. Past Anesthesia/Blood Transfusion Reactions: No Reported Reaction Past Psychological History: No Psychological Hx Reported Smoking Status: Never smoker Past Alcohol Use History: None Reported Past Drug Use History: None Reported - Past Family History Father Family Medical History: Cancer Mother Additional Family Medical History / Comment(s): Sinus problems and DDD. General Exam Limitations: no limitations General appearance: alert, in no apparent distress Head exam: Present: atraumatic, normocephalic, normal inspection Eye exam: Present: normal appearance, PERRL, EOMI. Absent: scleral icterus, conjunctival injection, periorbital swelling ENT exam: Present: normal exam, normal oropharynx, mucous membranes moist, TM's normal bilaterally Neck exam: Present: normal inspection, full ROM. Absent: tenderness, meningismus, lymphadenopathy Respiratory exam: Present: normal lung sounds bilaterally. Absent: respiratory distress, wheezes, rales, rhonchi, stridor Cardiovascular Exam: Present: regular rate, normal rhythm, normal heart sounds. Absent: systolic murmur, diastolic murmur, rubs, gallop, clicks GI/Abdominal exam: Present: soft, normal bowel sounds. Absent: distended, tenderness, guarding, rebound, rigid Back exam: Absent: CVA tenderness (R), CVA tenderness (L) Neurological exam: Present: alert, oriented X3, CN II-XII intact Skin exam: Present: warm, dry, intact, normal color. Absent: rash Course Vital Signs 12/22/18 08:50 Temperature 98.2 F Pulse Rate 77 Respiratory 18 Rate Blood Pressure 122/83 O2 Sat by Pulse 98 Oximetry Medical Decision Making - Medical Decision Making Patient's urinalysis revealed evidence of urinary tract infection. Patient's ultrasound shows a single viable IUP with a right ovarian cyst. Patient had some issues with passing out in the past she felt near syncopal today. Patient's EKG is unremarkable labs otherwise unremarkable. - Lab Data Result diagrams: 12/22/18 09:31 12/22/18 09:31 Lab Results 12/22/18 12/22/18 12/22/18 Range/Units 09:31 09:31 09:31 WBC 6.9 (3.8-10.6) k/uL RBC 4.37 (3.80-5.40) m/uL Hgb 12.8 (11.4-16.0) gm/dL Hct 36.1 (34.0-46.0) % MCV 82.6 (80.0-100.0) fL MCH 29.3 (25.0-35.0) pg MCHC 35.5 (31.0-37.0) g/dL RDW 14.2 (11.5-15.5) % Plt Count 215 (150-450) k/uL Neutrophils % 65 % Lymphocytes % 26 % Monocytes % 4 % Eosinophils % 3 % Basophils % 0 % Neutrophils # 4.5 (1.3-7.7) k/uL Lymphocytes # 1.8 (1.0-4.8) k/uL Monocytes # 0.3 (0-1.0) k/uL Eosinophils # 0.2 (0-0.7) k/uL Basophils # 0.0 (0-0.2) k/uL Sodium 140 (137-145) mmol/L Potassium 3.9 (3.5-5.1) mmol/L Chloride 109 H (98-107) mmol/L Carbon Dioxide 23 (22-30) mmol/L Anion Gap 8 mmol/L BUN 8 (7-17) mg/dL Creatinine 0.55 (0.52-1.04) mg/dL Est GFR (CKD-EPI)AfAm >90 (>60 ml/min/1.73 sqM) Est GFR (CKD-EPI)NonAf >90 (>60 ml/min/1.73 sqM) Glucose 100 H (74-99) mg/dL Calcium 9.6 (8.4-10.2) mg/dL Total Bilirubin 0.3 (0.2-1.3) mg/dL AST 15 (14-36) U/L ALT 17 (9-52) U/L Alkaline Phosphatase 51 (38-126) U/L Total Protein 6.8 (6.3-8.2) g/dL Albumin 3.9 (3.5-5.0) g/dL Amylase 32 (30-110) U/L Lipase 103 (23-300) U/L Urine Color Yellow Urine Appearance Cloudy H (Clear) Urine pH 7.0 (5.0-8.0) Ur Specific [place] 1.022 (1.001-1.035) Urine Protein Negative (Negative) Urine Glucose (UA) Negative (Negative) Urine Ketones Negative (Negative) Urine Blood Negative (Negative) Urine Nitrite Negative (Negative) Urine Bilirubin Negative (Negative) Urine Urobilinogen 2.0 (<2.0) mg/dL Ur Leukocyte Esterase Moderate H (Negative) Urine RBC 2 (0-5) /hpf Urine WBC 8 H (0-5) /hpf Ur Squamous Epith Cells 3 (0-4) /hpf Urine Bacteria Occasional H (None) /hpf Urine Mucus Rare H (None) /hpf Disposition Clinical Impression: Near syncope, , Ovarian cyst, UTI (urinary tract infection) Disposition: HOME SELF-CARE Condition: Stable Instructions (If sedation given, give patient instructions): Urinary Tract Infection in (ED), Near Syncope (ED) Additional Instructions: Please return to the Emergency Department if symptoms worsen or any other concerns. Prescriptions: Cephalexin [Keflex] 500 mg PO Q8HR #21 cap Is patient prescribed a controlled substance at d/c from ED?: No Referrals: Richard Guerra MD [Primary Care Provider] - 1-2 days Time of Disposition: 10:15
[2018-12-22 09:44] LABS: Appearance,Urine Cloudy (Clear); Bacteria,Urine Occasional /hpf; Bilirubin,Urine Negative (Negative); Blood,Urine Negative (Negative); Color,Urine Yellow; Glucose,Urine (UA) Negative (Negative); Ketones,Urine Negative (Negative); Leukocyte Esterase,Urine Moderate (Negative); Mucus,Urine Rare /hpf; Nitrite,Urine Negative (Negative); Protein,Urine Negative (Negative); RBC,Urine 2 /hpf (0-5); Specific Gravity,Urine 1.022 (1.001-1.035); Squamous Epithelial Cell,Urine 3 /hpf (0-4)
[2018-12-22 09:49] LABS: ALT 17 U/L (9-52); AST 15 U/L (14-36); African American GFR (CKD) >90 (>60 ml/min/1.73 sqM); Albumin 3.9 g/dL (3.5-5.0); Alkaline Phosphatase 51 U/L (38-126); Amylase 32 U/L (30-110); Anion Gap 8 mmol/L; Basophils % (A) 0 %; Blood Urea Nitrogen 8 mg/dL (7-17); Calcium 9.6 mg/dL (8.4-10.2); Carbon Dioxide 23 mmol/L (22-30); Chloride 109 mmol/L (98-107); Eosinophils # (A) 0.2 k/uL (0-0.7); Eosinophils % (A) 3 %; Glucose 100 mg/dL (74-99); HCT 36.1 % (34.0-46.0); HGB 12.8 gm/dL (11.4-16.0); Lymphocytes # (A) 1.8 k/uL (1.0-4.8); Lymphocytes % (A) 26 %; MCH 29.3 pg (25.0-35.0); MCHC 35.5 g/dL (31.0-37.0); MCV 82.6 fL (80.0-100.0); Mean Platelet Volume 7.2; Monocytes # (A) 0.3 k/uL (0-1.0); Monocytes % (A) 4 %; Neutrophils # (A) 4.5 k/uL (1.3-7.7); Neutrophils % (A) 65 %; Platelet Count 215 k/uL (150-450); Potassium 3.9 mmol/L (3.5-5.1); RBC 4.37 m/uL (3.80-5.40); RDW 14.2 % (11.5-15.5); Sodium 140 mmol/L (137-145); Total Bilirubin 0.3 mg/dL (0.2-1.3); Total Protein 6.8 g/dL (6.3-8.2); WBC 6.9 k/uL (3.8-10.6)
--- NOTE | 2018-12-22 10:02 | US ---
EXAMINATION TYPE: Transabdominal DATE OF EXAM: 12/22/2018 9:53 AM COMPARISON: NONE CLINICAL HISTORY: pain. Pt states cramping, passed out EXAM PERFORMED: Transabdominal (TA) EXAM MEASUREMENTS: GESTATIONAL AGE / DATING Physician Established: (11 weeks/4 days) EDC: 07/09/2019 Dates by LMP: Unknown Dates by First Scan: No prior Dates by Current Scan for: (12 weeks/0 days) EDC: 07/06/2019 MATERNAL ANATOMY Uterus: 13.1 x 7.1 x 8.7 cm Right Ovary: 3.9 x 2.8 x 4.4 cm Left Ovary: 3.0 x 2.7 x 2.1 cm Post CDS / Adnexa: wnl Presence of free fluid: No Presence of corpus luteal cyst: Right Ovary= 2.6 x 2.5 x 2.8 cm GESTATION / SURVEY CRL: 5.3 cm (12 weeks/0 days) MSD: wnl Heart Rate: 158 bpm Rhythm: Normal IUP: Viable IUP Nuchal Translucency 10-14wks (normal less than 3mm): 2mm Single, viable IUP/ No abnormality visualized at this time IMPRESSION: VIABLE INTRAUTERINE GESTATION WITH A GESTATIONAL AGE OF 12 WEEKS 0 DAYS +/- 7 DAYS. ESTIMATED DATE CO NFINEMENT BASED ON THIS EXAMINATION IS 07/06/2019.
[2018-12-22 10:43] VITALS: BP 128/87; PULSE 78
== END 2018-12-22 10:35 | disposition home or self-care (01) ==
LOC: EC 08:45
DX: O34.81 Maternal care for other abnormalities of pelvic organs, first trimester (principal); N83.11 Corpus luteum cyst of right ovary; O23.41 Unspecified infection of urinary tract in pregnancy, first trimester; Z3A.12 12 weeks gestation of pregnancy; R55 Syncope and collapse; Z79.3 Long term (current) use of hormonal contraceptives; Z88.0 Allergy status to penicillin; Z88.2 Allergy status to sulfonamides; Z88.8 Allergy status to other drugs, medicaments and biological substances; Z98.890 Other specified postprocedural states
CPT/HCPCS: 36415; 76801; 76813; 80053; 81001; 82150; 83690; 85025; 93005; 99284

== ENCOUNTER 2019-01-16 16:59 | Emergency (ER) | payer BC, OTHER ==
[2019-01-16 17:19] VITALS: RESP 18
[2019-01-16] MEDS ORDERED: ACETAMINOPHEN TAB 500 MG TAB PO STA (18:15)
[2019-01-16] MEDS ORDERED: SODIUM CHLORIDE 0.9% 1,000 ML IV ONE (18:15)
[2019-01-16 19:12] LABS: Basophils % (A) 0 %; Eosinophils # (A) 0.2 k/uL (0-0.7); Eosinophils % (A) 2 %; HCT 35.3 % (34.0-46.0); HGB 12.2 gm/dL (11.4-16.0); Lymphocytes # (A) 2.2 k/uL (1.0-4.8); Lymphocytes % (A) 24 %; MCH 28.9 pg (25.0-35.0); MCHC 34.5 g/dL (31.0-37.0); MCV 83.8 fL (80.0-100.0); Mean Platelet Volume 7.9; Monocytes # (A) 0.4 k/uL (0-1.0); Monocytes % (A) 5 %; Neutrophils # (A) 6.2 k/uL (1.3-7.7); Neutrophils % (A) 68 %; Platelet Count 195 k/uL (150-450); RBC 4.21 m/uL (3.80-5.40); WBC 9.1 k/uL (3.8-10.6)
[2019-01-16 19:13] LABS: ALT 19 U/L (9-52); AST 14 U/L (14-36); African American GFR (CKD) >90 (>60 ml/min/1.73 sqM); Albumin 3.8 g/dL (3.5-5.0); Alkaline Phosphatase 56 U/L (38-126); Anion Gap 9 mmol/L; Blood Urea Nitrogen 6 mg/dL (7-17); Calcium 9.3 mg/dL (8.4-10.2); Carbon Dioxide 21 mmol/L (22-30); Chloride 107 mmol/L (98-107); Glucose 89 mg/dL (74-99); Non-African American GFR(CKD) >90 (>60 ml/min/1.73 sqM); Potassium 3.4 mmol/L (3.5-5.1); Sodium 137 mmol/L (137-145); Total Bilirubin 0.4 mg/dL (0.2-1.3); Total Protein 6.5 g/dL (6.3-8.2)
[2019-01-16 19:14] LABS: Amorphous Sediment,Urine Occasional /hpf; Appearance,Urine Cloudy (Clear); Bacteria,Urine Occasional /hpf; Bilirubin,Urine Negative (Negative); Blood,Urine Negative (Negative); Calcium Oxalate Crystals,Urine Rare /hpf; Color,Urine Yellow; Glucose,Urine (UA) Negative (Negative); Hyaline Casts,Urine 1 /lpf (0-2); Ketones,Urine Trace (Negative); Leukocyte Esterase,Urine Large (Negative); Mucus,Urine Few /hpf; Nitrite,Urine Negative (Negative); Protein,Urine Trace (Negative); RBC,Urine 3 /hpf (0-5); Squamous Epithelial Cell,Urine 15 /hpf (0-4); Urobilinogen,Urine <2.0 mg/dL (<2.0); WBC,Urine 96 /hpf (0-5)
[2019-01-16] MEDS ORDERED: cefTRIAXone IN SWFI 1,000 MG/10 ML SYRINGE IVP STA (19:40)
--- NOTE | 2019-01-16 20:17 | US ---
EXAMINATION TYPE: US OB >= 14 wk fetus DATE OF EXAM: 01/16/2019 COMPARISON: US CLINICAL HISTORY: Abd pain; vaginal spasms. Abdominal/back pain x 1 day. Vaginal spasms. . TECHNIQUE: Transabdominal (TA) GESTATIONAL AGE / DATING Physician Established: (14 weeks/2 days) EDC: 07/15/2019 Dates by LMP: Unknown Dates by First Scan: (15 weeks/4 days) EDC: 07/06/2019 Dates by Current Scan: (15 weeks/3 days) EDC: 07/07/2019 SURVEY IUP: Single PLACENTA: Posterior. Hypoechoic area seen measurin.1 x 1.6 x 0.5 cm. PREVIA: No Previa seen. ELSA: 13.24 cm Normal CERVICAL LENGTH (transabdominal: norm > 3.0cm): 3.16 cm BIOMETRY PRESENTATION: Variable BPD: 2.89 cm 15 weeks / 2 days HC: 10.92 cm 15 weeks / 2 days AC: 9.06 cm 15 weeks / 2 days FL: 1.64 cm 14 weeks / 6 days ESTIMATED WEIGHT IN GRAMS: 114.12 grams ESTIMATED WEIGHT IN LBS/OZ: 0 lbs. 4 oz. WEIGHT PERCENTAGE BASED ON ESTABLISHED DATES: 87.9% HC/AC: 1.21 Normal FL/AC: 18.06 HEART RATE: 146 bpm RHYTHM: Normal *Limited due to movement. IMPRESSION: No definite acute process. 1.6 x 1.1 x 0.5 hypoechoic focus noted, consistent with tiny subchorionic hemorrhage.
--- NOTE | 2019-01-16 20:45 | ED ---
Female Urogenital HPI - General Chief complaint: Vaginal Bleeding Stated complaint: 14wks PG, Back and side pain Time Seen by Provider: 01/16/19 18:04 Source: patient Mode of arrival: ambulatory Limitations: no limitations - History of Present Illness Initial comments: 23-year-old female patient presents to the emergency department today for evaluation of generalized abdominal pain and low back pain. Patient is approximately 14 weeks . . States that this pain has been going on intermittently for a while however today seemed to last longer. States that she did speak to her [employer] RE[employer]ATION KETTLE TENDER who instructed her to increase fluids and increased physical activity. States she did both and it did not help. Patient denies any abnormal vaginal bleeding or discharge. Denies any hematuria, dysuria but does report urinary frequency. Patient did have a 6 week ultrasound she said everything appeared to be normal. She denies fever or chills. Denies any nausea, vomiting, constipation, or diarrhea. Patient denies any recent rash, fever, chills, shortness breath, chest pain, numbness, tingling, dizziness, weakness, headache, visual changes, or any other complaints. Last Menstrual Period: 09/07/18 - Related Data Home Medications Medication Instructions Recorded Confirmed Nadolol [Corgard] 20 mg PO DIRECTED 09/18/18 10/22/18 Kurvelo 1 tab PO DAILY 10/22/18 10/22/18 Previous Rx's Medication Instructions Recorded Cephalexin [Keflex] 500 mg PO Q8HR #21 cap 12/22/18 Cephalexin [Keflex] 500 mg PO BID #14 cap 01/16/19 Allergies Allergy/AdvReac Type Severity Reaction Status Date / Time gabapentin [From Neurontin] Allergy Anaphylaxis Verified 12/22/18 08:50 Penicillins Allergy stopped Verified 12/22/18 08:50 breathing Sulfa (Sulfonamide AdvReac Dyspnea,alem Verified 12/22/18 08:50 Antibiotics) h Review of Systems ROS Statement: Those systems with pertinent positive or pertinent negative responses have been documented in the HPI. ROS Other: All systems not noted in ROS Statement are negative. Past Medical History Past Medical History: Syncope Additional Past Medical History / Comment(s): Syncopal episodes past 5 years. Tilt table test on 04/16/18 pt states heart paused and she was given CPR. Low back pain, vertigo. BP fluctuates. History of Any Multi-Drug Resistant Organisms: None Reported Past Surgical History: Adenoidectomy, Section, Tonsillectomy Additional Past Surgical History / Comment(s): 04/16/18 Tilt Table Test, oral surgery as a child. Past Anesthesia/Blood Transfusion Reactions: No Reported Reaction Past Psychological History: No Psychological Hx Reported Smoking Status: Never smoker Past Alcohol Use History: None Reported Past Drug Use History: None Reported - Past Family History Father Family Medical History: Cancer Mother Additional Family Medical History / Comment(s): Sinus problems and DDD. General Exam Limitations: no limitations General appearance: alert, in no apparent distress, other (This is a well- developed, well-nourished adult female patient in no acute distress. Vital signs upon presentation are temperature 98.6F, pulse 77, respirations 18, blood pressure 134/85, pulse ox 100% on room air.) Eye exam: Present: normal appearance, PERRL, EOMI. Absent: scleral icterus, conjunctival injection, periorbital swelling ENT exam: Present: normal exam, normal oropharynx, mucous membranes moist Respiratory exam: Present: normal lung sounds bilaterally. Absent: respiratory distress, wheezes, rales, rhonchi, stridor Cardiovascular Exam: Present: regular rate, normal rhythm, normal heart sounds. Absent: systolic murmur, diastolic murmur, rubs, gallop, clicks GI/Abdominal exam: Present: soft, normal bowel sounds. Absent: distended, tenderness, guarding, rebound, rigid Back exam: Present: normal inspection. Absent: CVA tenderness (R), CVA tenderness (L) Neurological exam: Present: alert, oriented X3, CN II-XII intact Psychiatric exam: Present: normal affect, normal mood Skin exam: Present: warm, dry, intact, normal color. Absent: rash Course Vital Signs 01/16/19 01/16/19 01/16/19 17:16 19:11 20:48 Temperature 98.6 F Pulse Rate 77 75 69 Respiratory 18 18 18 Rate Blood Pressure 134/85 120/82 140/89 O2 Sat by Pulse 100 100 100 Oximetry 01/16/19 21:34 Temperature 97.2 F L Pulse Rate 79 Respiratory 18 Rate Blood Pressure 124/76 O2 Sat by Pulse 98 Oximetry Medical Decision Making - Medical Decision Making 23-year-old female patient who is 14 weeks presents to the emergency department today for evaluation of generalized abdominal pain and urinary freq uency. Physical examination revealed a soft nontender abdomen. Labs reviewed and did reveal mildly decreased potassium at 3.4. Urinalysis showed a cloudy appearance with trace protein, trace ketones, large leukocyte esterase, 96 white blood cells, 15 squamous epithelial cells, rare calcium oxalate crystals, occasional amorphous sediment, occasional urine bacteria, and few urine mucus. Ultrasound of the fetus did show a viable intrauterine with normal heart rate. There was evidence for a subchorionic hemorrhage. Patient denies current vaginal bleeding. Patient will be discharged with Keflex for urinary tract infection. She is instructed follow up with her [employer] K[employer]TLE TENDER for recheck as soon as possible. Return parameters were discussed in detail. She verbalizes understanding and agrees with this plan. - Lab Data Result diagrams: 01/16/19 18:55 01/16/19 18:55 Lab Results 01/16/19 01/16/19 01/16/19 Range/Units 18:55 18:55 18:55 WBC 9.1 (3.8-10.6) k/uL RBC 4.21 (3.80-5.40) m/uL Hgb 12.2 (11.4-16.0) gm/dL Hct 35.3 (34.0-46.0) % MCV 83.8 (80.0-100.0) fL MCH 28.9 (25.0-35.0) pg MCHC 34.5 (31.0-37.0) g/dL RDW 14.0 (11.5-15.5) % Plt Count 195 (150-450) k/uL Neutrophils % 68 % Lymphocytes % 24 % Monocytes % 5 % Eosinophils % 2 % Basophils % 0 % Neutrophils # 6.2 (1.3-7.7) k/uL Lymphocytes # 2.2 (1.0-4.8) k/uL Monocytes # 0.4 (0-1.0) k/uL Eosinophils # 0.2 (0-0.7) k/uL Basophils # 0.0 (0-0.2) k/uL Sodium 137 (137-145) mmol/L Potassium 3.4 L (3.5-5.1) mmol/L Chloride 107 (98-107) mmol/L Carbon Dioxide 21 L (22-30) mmol/L Anion Gap 9 mmol/L BUN 6 L (7-17) mg/dL Creatinine 0.50 L (0.52-1.04) mg/dL Est GFR (CKD-EPI)AfAm >90 (>60 ml/min/1.73 sqM) Est GFR (CKD-EPI)NonAf >90 (>60 ml/min/1.73 sqM) Glucose 89 (74-99) mg/dL Calcium 9.3 (8.4-10.2) mg/dL Total Bilirubin 0.4 (0.2-1.3) mg/dL AST 14 (14-36) U/L ALT 19 (9-52) U/L Alkaline Phosphatase 56 (38-126) U/L Total Protein 6.5 (6.3-8.2) g/dL Albumin 3.8 (3.5-5.0) g/dL Lipase 66 (23-300) U/L Urine Color Yellow Urine Appearance Cloudy H (Clear) Urine pH 6.0 (5.0-8.0) Ur Specific [place] 1.030 (1.001-1.035) Urine Protein Trace H (Negative) Urine Glucose (UA) Negative (Negative) Urine Ketones Trace H (Negative) Urine Blood Negative (Negative) Urine Nitrite Negative (Negative) Urine Bilirubin Negative (Negative) Urine Urobilinogen <2.0 (<2.0) mg/dL Ur Leukocyte Esterase Large H (Negative) Urine RBC 3 (0-5) /hpf Urine WBC 96 H (0-5) /hpf Ur Squamous Epith Cells 15 H (0-4) /hpf Calcium Oxalate Crystal Rare H (None) /hpf Amorphous Sediment Occasional H (None) /hpf Urine Bacteria Occasional H (None) /hpf Hyaline Casts 1 (0-2) /lpf Urine Mucus Few H (None) /hpf - Radiology Data Radiology results: report reviewed Ultrasound of the fetus was obtained. Report reviewed in its entirety. Impression by Dr. Courtney Flannery shows no definite acute process there is a 1.6 x 1.1 x 0.5 hypoechoic focus noted, consistent with tiny subchorionic hemorrhage. Heart rate was 146. There was movement. Disposition Clinical Impression: Abdominal pain during , Urinary tract infection, Subchorionic hemorrhage Disposition: HOME SELF-CARE Condition: Good Instructions (If sedation given, give patient instructions): Abdominal Pain in (ED), Urinary Tract Infection in (ED), Subchorionic Hemorrhage (ED) Additional Instructions: Increase fluids. Rest. Follow-up with your [employer]LE TENDER for recheck as soon as possible. Complete antibiotic prescription in full. Return to the emergency department immediately for any new, worsening, or concerning symptoms. Prescriptions: Cephalexin [Keflex] 500 mg PO BID #14 cap Is patient prescribed a controlled substance at d/c from ED?: No Referrals: Richard Guerra MD [Primary Care Provider] - 1-2 days Time of Disposition: 20:45
[2019-01-16 21:36] VITALS: BP 124/76; PULSE 79; TEMP 97.2
== END 2019-01-16 21:35 | disposition home or self-care (01) ==
LOC: EC 16:59
DX: O23.42 Unspecified infection of urinary tract in pregnancy, second trimester (principal); O26.892 Other specified pregnancy related conditions, second trimester; O20.9 Hemorrhage in early pregnancy, unspecified; Z3A.14 14 weeks gestation of pregnancy; Z79.899 Other long term (current) drug therapy; Z88.0 Allergy status to penicillin; Z88.2 Allergy status to sulfonamides; Z88.8 Allergy status to other drugs, medicaments and biological substances
CPT/HCPCS: 36415; 80053; 83690; 85025; 81001; 87086; 76805; 99284; J0696

== ENCOUNTER 2019-11-12 19:27 | Emergency (ER) | payer BC, OTHER ==
[2019-11-12 19:33] VITALS: RESP 16
--- NOTE | 2019-11-12 20:02 | ED ---
Dizziness HPI - General Source: patient Mode of arrival: ambulatory Limitations: no limitations <Harpreet Garcia - Last Filed: 11/12/19 22:22> <Eduarda Durand - Last Filed: 11/12/19 23:43> - General Chief Complaint: Dizziness Stated Complaint: Dizziness,vomiting Time Seen by Provider: 11/12/19 19:45 - History of Present Illness Initial Comments: Patient is 24-year-old female with history of recurrent syncopal pills presenting to emergency Department with a chief complaint of dizziness. Patient states while she was at work she started feeling like she could not balance herself. States she had a near syncopal episode but never actually passed out. Patient reports immediately should obtain a blood pressure was 160/100. The patient reports she went home and had one episode of nonbilious and nonbloody vomiting. States she never had a syncopal episode. States the room is not spinning around her but she is rather feeling like passing out. She admitted to being lightheaded, rather than dizzy. She does a history of recurrent syncopal episodes and was evaluated by a maintenance carpenter and had a positive tilt test. She has a loop recorder in place for over a year and sees Dr. Aguilera a regular basis. She denies chest pain, shortness of breath, headaches, visual disturbances, one- sided weakness or paresthesias. (Harpreet Garcia) - Related Data Home Medications Medication Instructions Recorded Confirmed nadoloL [Corgard] 20 mg PO DIRECTED 09/18/18 10/22/18 Kur[place]o 1 tab PO DAILY 10/22/18 10/22/18 Previous Rx's Medication Instructions Recorded Cephalexin [Keflex] 500 mg PO Q8HR #21 cap 12/22/18 Cephalexin [Keflex] 500 mg PO BID #14 cap 01/16/19 Allergies Allergy/AdvReac Type Severity Reaction Status Date / Time gabapentin [From Neurontin] Allergy Anaphylaxis Verified 11/12/19 19:31 Penicillins Allergy stopped Verified 11/12/19 19:31 breathing Sulfa (Sulfonamide AdvReac Dyspnea,alem Verified 11/12/19 19:31 Antibiotics) h Review of Systems ROS Other: All systems not noted in ROS Statement are negative. <Harpreet Garcia - Last Filed: 11/12/19 22:22> ROS Other: All systems not noted in ROS Statement are negative. <Eduarda Durand - Last Filed: 11/12/19 23:43> ROS Statement: Those systems with pertinent positive or pertinent negative responses have been documented in the HPI. Past Medical History Past Medical History: Syncope Additional Past Medical History / Comment(s): Syncopal episodes past 5 years. Tilt table test on 04/16/18 pt states heart paused and she was given CPR. Low back pain, vertigo. BP fluctuates. History of Any Multi-Drug Resistant Organisms: None Reported Past Surgical History: Adenoidectomy, Section, Tonsillectomy Additional Past Surgical History / Comment(s): 04/16/18 Tilt Table Test, oral surgery as a child. Past Anesthesia/Blood Transfusion Reactions: No Reported Reaction Past Psychological History: No Psychological Hx Reported Smoking Status: Never smoker Past Alcohol Use History: None Reported Past Drug Use History: None Reported - Past Family History Father Family Medical History: Cancer Mother Additional Family Medical History / Comment(s): Sinus problems and DDD. <Harpreet Garcia - Last Filed: 11/12/19 22:22> General Exam Limitations: no limitations General appearance: alert, in no apparent distress Head exam: Present: atraumatic, normocephalic, normal inspection Eye exam: Present: normal appearance, PERRL, EOMI Pupils: Present: normal accommodation ENT exam: Present: normal exam, normal oropharynx, mucous membranes moist, TM's normal bilaterally, normal external ear exam Neck exam: Present: normal inspection, full ROM. Absent: tenderness Respiratory exam: Present: normal lung sounds bilaterally. Absent: respiratory distress, wheezes Cardiovascular Exam: Present: regular rate, normal rhythm, normal heart sounds Extremities exam: Present: normal inspection, full ROM, normal capillary refill, other (+2 ulnar and radial pulses bilaterally.). Absent: tenderness Back exam: Present: normal inspection, full ROM. Absent: tenderness, CVA tenderness (R) Neurological exam: Present: alert, oriented X3, CN II-XII intact, normal gait Psychiatric exam: Present: normal affect, normal mood Skin exam: Present: warm, dry, intact, normal color <Harpreet Garcia - Last Filed: 11/12/19 22:22> Course Vital Signs 11/12/19 11/12/19 11/12/19 19:29 20:59 21:18 Temperature 98.0 F 96.5 F L Pulse Rate 63 Pulse Rate [ 73 Sitting] Pulse Rate [ 73 Standing] Pulse Rate [ 58 L Supine] Respiratory 16 Rate Blood Pressure 137/90 Blood Pressure 148/91 [Sitting] Blood Pressure 146/90 [Standing] Blood Pressure 139/88 [Supine] O2 Sat by Pulse 100 Oximetry EKG Findings - EKG Comments: EKG Findings:: Sinus bradycardia. No ST or T-wave changes. Ventricular rate 59, HI 152, QRS 100, QTC 396. <Harpreet Garcia - Last Filed: 11/12/19 22:22> Medical Decision Making <Harpreet Garcia - Last Filed: 11/12/19 22:22> <Eduarda Durand - Last Filed: 11/12/19 23:43> - Medical Decision Making patient is 24-year-old female presented to the emergency department with a chief complaint of dizziness. Patient has lightheadedness rather than dizziness. This was cleared up with the patient. Physical examination is unremarkable. EKG shows sinus bradycardia with a ventricular rate of 59. Orthostatics were performed and are within normal limits. Considering the patient has a history of syncopal episode and she was determined to have dysautonomia, no further laboratory work and imaging will be performed. Advised to follow-up with her primary care physician and maintenance carpenter. Strict return parameters were t horoughly discussed with patient was understanding and agreeable. (Harpreet Garcia) I was available for consultation in the emergency department. The history and physical exam were done by the midlevel provider. I was consulted for this patients care. I reviewed the case with the midlevel provider and based on their presentation of the patient, I agree with the assessment, medical decision making and plan of care as documented. Chart was dictated using [employer] dictation software. Attempts were made to correct any dictation errors however some typographical errors may persist. Patient was seen during a national state of emergency due to the Covid-19 pandemic. (Eduarda Durand) Disposition Is patient prescribed a controlled substance at d/c from ED?: No Time of Disposition: 21:04 <Harpreet Garcia - Last Filed: 11/12/19 22:22> <Eduarda Durand - Last Filed: 11/12/19 23:43> Clinical Impression: Lightheadedness Disposition: HOME SELF-CARE Condition: Stable Instructions (If sedation given, give patient instructions): Syncope (DC) Additional Instructions: Follow-up with your primary care physician or your maintenance carpenter. Return to emergency department if symptoms worsen. Referrals: Richard Guerra MD [Primary Care Provider] - 1-2 days
[2019-11-12 21:01] VITALS: BP 139/88; PULSE 58
[2019-11-12 21:19] VITALS: TEMP 96.5
== END 2019-11-12 21:19 | disposition home or self-care (01) ==
LOC: EC 19:27
DX: R42 Dizziness and giddiness (principal); R55 Syncope and collapse; R00.1 Bradycardia, unspecified; Z79.899 Other long term (current) drug therapy; Z88.0 Allergy status to penicillin; Z88.2 Allergy status to sulfonamides; Z88.8 Allergy status to other drugs, medicaments and biological substances
CPT/HCPCS: 93005; 99284

== ENCOUNTER 2019-11-14 08:35 | Inpatient (IN) | payer BC, OTHER ==
[2019-11-14] MEDS ORDERED: SODIUM CHLORIDE 0.9% 500 ML 500 ML IV STA (08:37)
[2019-11-14] MEDS ORDERED: HYDROmorphone 0.5 MG/0.5 ML SYRINGE IVP STA (08:37)
[2019-11-14] MEDS ORDERED: METOCLOPRAMIDE 5 MG/ML 2 ML VIAL IVP STA (08:37)
[2019-11-14] MEDS ORDERED: SODIUM CHLORIDE 0.9% 1,000 ML IV STA (08:37)
[2019-11-14 09:03] LABS: HGB 14.4 gm/dL (11.4-16.0); MCH 26.9 pg (25.0-35.0); MCV 80.3 fL (80.0-100.0); RBC 5.35 m/uL (3.80-5.40); WBC 9.9 k/uL (3.8-10.6)
[2019-11-14 09:04] LABS: Basophils % (A) 0 %; Eosinophils # (A) 0.2 k/uL (0-0.7); Eosinophils % (A) 2 %; Lymphocytes # (A) 1.6 k/uL (1.0-4.8); Lymphocytes % (A) 16 %; MCHC 33.6 g/dL (31.0-37.0); Mean Platelet Volume 8.7; Monocytes # (A) 0.4 k/uL (0-1.0); Monocytes % (A) 4 %; Neutrophils # (A) 7.6 k/uL (1.3-7.7); Neutrophils % (A) 77 %; Platelet Count 225 k/uL (150-450); RDW 14.6 % (11.5-15.5)
[2019-11-14 09:09] LABS: Mucus,Urine Occasional /hpf; RBC,Urine >182 /hpf (0-5); WBC,Urine 27 /hpf (0-5)
[2019-11-14 09:10] LABS: Appearance,Urine Bloody (Clear); Color,Urine Red
[2019-11-14 09:12] LABS: ALT 263 U/L (4-34); AST 192 U/L (14-36); African American GFR (CKD) >90 (>60 ml/min/1.73 sqM); Albumin 4.3 g/dL (3.5-5.0); Alkaline Phosphatase 169 U/L (38-126); Anion Gap 6 mmol/L; Blood Urea Nitrogen 12 mg/dL (7-17); Calcium 8.9 mg/dL (8.4-10.2); Carbon Dioxide 24 mmol/L (22-30); Chloride 110 mmol/L (98-107); Glucose 140 mg/dL (74-99); Non-African American GFR(CKD) >90 (>60 ml/min/1.73 sqM); Potassium 3.8 mmol/L (3.5-5.1); Sodium 140 mmol/L (137-145); Total Bilirubin 3.8 mg/dL (0.2-1.3); Total Protein 7.3 g/dL (6.3-8.2)
--- NOTE | 2019-11-14 09:34 | XR ---
EXAMINATION TYPE: XR chest 2V DATE OF EXAM: 11/14/2019 COMPARISON: 10/22/2018 HISTORY: Chest pain TECHNIQUE: Frontal and lateral views of the chest are obtained. FINDINGS: There is no focal air space opacity. No evidence for pneumothorax. No pleural effusion. The cardiac silhouette size is within normal limits. The osseous structures are grossly intact. IMPRESSION: 1. No acute cardiopulmonary process.
[2019-11-14 10:00] LABS: Amylase 3213 U/L (30-110)
--- NOTE | 2019-11-14 10:06 | US ---
EXAMINATION TYPE: US abdomen limited DATE OF EXAM: 11/14/2019 COMPARISON: NONE CLINICAL HISTORY: RUQ pain. pain and nausea x 2 days EXAM MEASUREMENTS: Liver Length: 19.1 cm Gallbladder Wall: 0.2 cm CBD: 1.2 cm Right Kidney: 10.0 x 4.5 x 4.8 cm Pancreas: wnl Liver: wnl Gallbladder: multiple tiny mobile stones seen Evidence for sonographic Newby's sign: no CBD: dilated with no obvious obstruction Right Kidney: wnl IMPRESSION: Small mobile stones identified.
[2019-11-14] MEDS ORDERED: LEVOFLOXACIN 750MG-D5W PMX 750 MG in DEXTROSE/WATER 1 150ML.BAG IVPB STA (10:11)
[2019-11-14] MEDS ORDERED: HYDROmorphone 0.5 MG/0.5 ML SYRINGE IVP PRN (10:12)
--- NOTE | 2019-11-14 10:19 | ED ---
Abdominal Pain HPI - General Chief Complaint: Abdominal Pain Stated Complaint: abd pain Time Seen by Provider: 11/14/19 08:37 Source: patient Mode of arrival: EMS Limitations: no limitations - History of Present Illness Initial Comments: 24yo female with history of syncope with loop recorder presented for chief complaint of epigastric pain nausea vomiting. She states that the past few days she has had some rib pain on and off. She states that today she had persistent epigastric pain causing severe nausea and vomiting. She stated she had multiple episodes of retching and vomiting and then called EMS for transportation to the emergency department she states at times it radiates to the back. She denies a history of abuse pancreatitis use of medications aside from her oral control. Patient denies any previous history of cholecystectomy or gallstones. Patient denies any fevers chills or general malaise. Patient denies any chest pain shortness of breath. Patient denies hematemesis .she states shortly after vomiting she did have a syncopal episode she states this is not uncommon for her and she freely has syncopal episodes and her shoer is aware Remaining review of systems negative upon arrival patient appears uncomfortable but nontoxic. - Related Data Home Medications Medication Instructions Recorded Confirmed Ibuprofen [Motrin] 600 mg PO Q8HR PRN 11/14/19 11/14/19 Norlyda 1 tab PO DAILY 11/14/19 11/14/19 Allergies Allergy/AdvReac Type Severity Reaction Status Date / Time gabapentin [From Neurontin] Allergy Anaphylaxis Verified 11/14/19 10:12 Penicillins Allergy stopped Verified 11/14/19 10:12 breathing Sulfa (Sulfonamide AdvReac Dyspnea,alem Verified 11/14/19 10:12 Antibiotics) h Review of Systems ROS Statement: Those systems with pertinent positive or pertinent negative responses have been documented in the HPI. ROS Other: All systems not noted in ROS Statement are negative. Past Medical History Past Medical History: Syncope Additional Past Medical History / Comment(s): Syncopal episodes past 5 years. Tilt table test on 04/16/18 pt states heart paused and she was given CPR. Low back pain, vertigo. BP fluctuates. History of Any Multi-Drug Resistant Organisms: None Reported Past Surgical History: Adenoidectomy, Section, Tonsillectomy Additional Past Surgical History / Comment(s): 3/5/19 Tilt Table Test, oral surgery as a child. loop recorder Past Anesthesia/Blood Transfusion Reactions: No Reported Reaction Past Psychological History: No Psychological Hx Reported Smoking Status: Never smoker Past Alcohol Use History: None Reported Past Drug Use History: None Reported - Past Family History Father Family Medical History: Cancer Mother Additional Family Medical History / Comment(s): Sinus problems and DDD. General Exam - General Exam Comments Initial Comments: General: The patient is awake and alert, in no distress Eye: +3 mm pupils are equal, round and reactive to light, extra-ocular movements are intact. No nystagmus. There is normal conjunctiva bilaterally. No signs of icterus. Ears, nose, mouth and throat: There are moist mucous membranes and no oral lesions. Neck: The neck is supple, there is no tenderness or JVD. Cardiovascular: There is a regular rate and rhythm. No murmur, rub or gallop is appreciated. Respiratory: Lungs are clear to auscultation, respirations are non-labored, breath sounds are equal. No wheezes, stridor, rales, or rhonchi. Gastrointestinal: Soft, non-distended, grossly tender to the right upper quadrant epigastric area abdomen, without masses or organomegaly noted. There is no rebound or guarding present. Musculoskeletal: Normal ROM, no tenderness. Strength 5/5. Sensation intact. Radial pulses equal bilaterally 2+. Neurological: A&O x 3. CN II-XII intact grossly, There are no obvious motor or sensory deficits. Coordination appears grossly intact. Speech is normal. Skin: Skin is warm and dry and no rashes or lesions are noted. Psychiatric: Cooperative, appropriate mood & affect, normal judgment. Limitations: no limitations Course Vital Signs 11/14/19 11/14/19 08:36 08:40 Temperature 97.9 F Pulse Rate 61 Respiratory 16 Rate Blood Pressure 141/96 O2 Sat by Pulse 97 Oximetry Medical Decision Making - Medical Decision Making 24yo with epigastric pain. Lipase significantly elevated, pain controlled with dilaudid. US multiple stones in GB with some dilation of the CBD with no obvious obstruction. patient suspected to have Gallstone induced pancreatitis as she is not on medications known to cause pancreatitis, no ETOH abuse history. Patient lipids pending. Patient NPO, fluid rate increased. Patient is agreeable to admission. Case discussed with Dr. Gentile who is to contact admitting provider. - Lab Data Result diagrams: 11/14/19 08:41 11/14/19 08:41 Lab Results 11/14/19 11/14/19 11/14/19 Range/Units 08:41 08:41 08:41 WBC 9.9 (3.8-10.6) k/uL RBC 5.35 (3.80-5.40) m/uL Hgb 14.4 (11.4-16.0) gm/dL Hct 43.0 (34.0-46.0) % MCV 80.3 (80.0-100.0) fL MCH 26.9 (25.0-35.0) pg MCHC 33.6 (31.0-37.0) g/dL RDW 14.6 (11.5-15.5) % Plt Count 225 (150-450) k/uL Neutrophils % 77 % Lymphocytes % 16 % Monocytes % 4 % Eosinophils % 2 % Basophils % 0 % Neutrophils # 7.6 (1.3-7.7) k/uL Lymphocytes # 1.6 (1.0-4.8) k/uL Monocytes # 0.4 (0-1.0) k/uL Eosinophils # 0.2 (0-0.7) k/uL Basophils # 0.0 (0-0.2) k/uL Sodium 140 (137-145) mmol/L Potassium 3.8 (3.5-5.1) mmol/L Chloride 110 H (98-107) mmol/L Carbon Dioxide 24 (22-30) mmol/L Anion Gap 6 mmol/L BUN 12 (7-17) mg/dL Creatinine 0.76 (0.52-1.04) mg/dL Est GFR (CKD-EPI)AfAm >90 (>60 ml/min/1.73 sqM) Est GFR (CKD-EPI)NonAf >90 (>60 ml/min/1.73 sqM) Glucose 140 H (74-99) mg/dL Calcium 8.9 (8.4-10.2) mg/dL Total Bilirubin 3.8 H (0.2-1.3) mg/dL AST 192 H (14-36) U/L ALT 263 H (4-34) U/L Alkaline Phosphatase 169 H (38-126) U/L Total Protein 7.3 (6.3-8.2) g/dL Albumin 4.3 (3.5-5.0) g/dL Amylase 3213 H* (30-110) U/L Lipase >85396 H (23-300) U/L Urine Color Red Urine Appearance Bloody H (Clear) Urine RBC >182 H (0-5) /hpf Urine WBC 27 H (0-5) /hpf Urine Mucus Occasional H (None) /hpf Disposition Clinical Impression: Pancreatitis, Gallstones, Dilated cbd, acquired Disposition: ADMITTED IP TO THIS [facility] Condition: Serious Is patient prescribed a controlled substance at d/c from ED?: No Referrals: Richard Guerra MD [Primary Care Provider] - 1-2 days Time of Disposition: 10:19 Decision to Admit Reason: Admit from EC Decision Date: 11/14/19 Decision Time: 10:19
[2019-11-14] MEDS ORDERED: NALOXONE 0.4 MG/ML 1 ML VIAL IV PRN (11:51)
[2019-11-14] MEDS ORDERED: ONDANSETRON 4 MG/2 ML VIAL IVP PRN (14:40)
[2019-11-14] MEDS: SODIUM CHLORIDE 0.9% 1,000 ML IV SCH ×2 (14:45→20:34)
[2019-11-14] MEDS: PANTOPRAZOLE 40 MG/10 ML VIAL IVP SCH (20:32)
[2019-11-14] MEDS: HYDROmorphone 1 MG/ML 1 ML SYRINGE IVP PRN (20:33)
--- NOTE | 2019-11-14 22:10 | CONS ---
CONSULTATION DATE OF DICTATION: 11/14/2019 REASON FOR CONSULTATION: Acute gallstone pancreatitis. HISTORY OF PRESENT ILLNESS: The patient is a 24-year-old pleasant white female admitted to the hospital with acute onset of severe epigastric pain associated with nausea and vomiting for the last 2 days' duration. The pain was so intense she had passed out, and hence EMS was called and she was subsequently brought to the emergency room. She was noted to have elevated amylase and lipase consistent with acute pancreatitis. She was also noted to have elevated LFTs and jaundice with a bilirubin of 3.4. She never had these symptoms in the past. She is feeling much better this morning. PAST MEDICAL HISTORY: Syncopal episodes. She sees Dr. Danielson. PAST SURGICAL HISTORY: , tonsillectomy. MEDICATIONS: Medications at home include Motrin p.r.n., SOCIAL HISTORY: No smoking. No alcohol use. FAMILY HISTORY: Father with some kind of cancer. Mother with sinus problems. ALLERGIES: PENICILLIN, SULFA, AND NEURONTIN. REVIEW OF SYSTEMS: CARDIOPULMONARY: No chest pain or shortness of breath. GENITOURINARY: No dysuria or hematuria. MUSCULOSKELETAL: Unremarkable. SKIN: Unremarkable. ENDOCRINE: Unremarkable. PSYCHIATRIC: Unremarkable. NEUROLOGY: Unremarkable. ENT/VISION: Unremarkable. CONSTITUTIONAL: No recent weight loss. No fever, chills, night sweats. PHYSICAL EXAMINATION: Blood pressure is 138/72, pulse rate 64, temperature 98.2. HEENT examination unremarkable. Conjunctivae pink. Sclerae anicteric. Oral cavity no lesions. NECK: No JVD or lymph node enlargement. CHEST: Clear to auscultation. HEART: Regular rate and rhythm. ABDOMEN: Soft. Tenderness in the epigastric area as well as right upper quadrant area. Rest of the abdomen was benign. Bowel sounds are positive. No organomegaly. EXTREMITIES: No pedal edema. SKIN: No rashes. NEUROLOGIC: Alert and oriented x3. No focal deficits. LABS/IMAGING: WBC 9.9, hemoglobin 14, platelets normal. Basic metabolic panel is within normal limits. T- bilirubin 3.8, AST 192, ALT 263, alkaline phosphatase 169. Amylase 3213, lipase more than 20,000. Ultrasound of the abdomen showed multiple gallstones and dilated CBD measuring 1.2 cm in diameter. IMPRESSION: 1. Acute gallstone pancreatitis. Patient presented with acute onset of severe epigastric pain associated with nausea and vomiting for the last 2 days' duration, noted to have elevated amylase and lipase and elevated LFTs and mild jaundice, all consistent with acute gallstone pancreatitis. 2. Elevated liver function tests and jaundice. Rule out choledocholithiasis. Ultrasound showed CBD dilation and multiple gallstones. RECOMMENDATIONS: 1. Aggressive IV hydration. 2. Keep her n.p.o. 3. Repeat labs in the morning. 4. Pain medications as needed. 5. I had a lengthy discussion with the patient regarding management of acute gallstone pancreatitis. At this time will consider ERCP if she continues to have persistent elevation of serum transaminases. Will follow with you closely. Thank you for this consultation. MMODL / IJN: [id number] /
--- NOTE | 2019-11-14 22:45 | P.HPIM ---
History of Present Illness H&P Date: 11/14/19 Chief Complaint: Abdominal pain History of presenting complaint: This is a pleasant 24-year-old patient of Dr. Guerra. Patient's had a history of several syncopes presyncope's. Workup in the past included a tilt table test that was positive. And medical diagnoses of neurocardiogenic syncope was made. Patient did undergo a loop recorder placement by Dr. Jones Danielson a few months ago. No arrhythmias been detected. Patient's symptoms since then had been bit better. 2 days ago patient not feeling well at work her blood pressure was noted to be a bit high. Then she went home. And she vomited she went to the ER and then she was sent home from there. Yesterday was just not feeling right some abdominal discomfort. This morning she had severe upper abdominal pain n ausea vomiting in that she passed out. No fever no chills. Found to have greatly elevated amylase lipase in the ER. 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 No smoking. Alcohol occasionally. Physical examination: VITAL SIGNS: 97.9, 61, 16, 141/96, 97% on room air GENERAL: BMI 30.7, sitting on bed, awake. EYES: Pupils equal. Conjunctiva normal. HEENT: External appearance of nose and ears normal, oral cavity grossly normal. NECK: JVD not raised; masses not palpable. HEART: First and second heart sounds are normal; no edema. LUNGS: Respiratory rate normal; clear to auscultation. ABDOMEN: Soft, some epigastric tenderness, no guarding rigidity, liver spleen not palpable, no masses palpable. PSYCH: Alert and oriented x3; mood and affect normal. NEUROLOGICAL: Cranial nerves grossly intact; no facial asymmetry, power and sensation grossly intact. LYMPHATICS: No lymph nodes palpable in the axilla and neck INVESTIGATIONS, reviewed in the clinical context: White count 9.9 hemoglobin 14.4 platelets 225 potassium 3.8 creatinine 0.76 Total bilirubin 3.8 AST 192 ALT 263 amylase 3213 lipase greater than 20,000 EKG tracing personally reviewed by me-normal sinus rhythm Chest x-ray film personally reviewed by me-no infiltrates Abdominal ultrasound-gallbladder shows multiple tiny mobile stones. Common bile duct dilated 1.2 cm Assessment: -Acute severe gallstone pancreatitis -Multiple gallstones -Obesity BMI 30.7 -Neurocardiogenic syncope patient does have a loop recorder in place. -Obstructive hepatitis Plan: Patient getting IV fluids. Lovenox for DVT prophylaxis. IV Dilaudid for pain control. Consultation to GI and general surgery was made. Patient may need ERCP. Discussed with the patient. Questions answered. Past Medical History Past Medical History: Syncope Additional Past Medical History / Comment(s): Syncopal episodes past 5 years. Tilt table test on 04/16/18 pt states heart paused and she was given CPR. Chronic low back pain, vertigo, BP fluctuates. Asthma in childhood/during (required inhaler). History of Any Multi-Drug Resistant Organisms: None Reported Past Surgical History: Adenoidectomy, Section, Tonsillectomy Additional Past Surgical History / Comment(s): 04/16/18 Tilt Table Test, oral surgery as a child, loop recorder, x2 Past Anesthesia/Blood Transfusion Reactions: No Reported Reaction Smoking Status: Never smoker - Past Family History Father Family Medical History: Cancer Additional Family Medical History / Comment(s): 2 cardiac surgeries. Mother Additional Family Medical History / Comment(s): Sinus problems and DDD. Hysterectomy r/t female health problems. History of borderline diabetic. Sister(s) Family Medical History: Seizure Disorder Medications and Allergies Home Medications Medication Instructions Recorded Confirmed Type Ibuprofen [Motrin] 600 mg PO Q8HR PRN 11/14/19 11/14/19 History Norlyda 1 tab PO DAILY 11/14/19 11/14/19 History Allergies Allergy/AdvReac Type Severity Reaction Status Date / Time gabapentin [From Neurontin] Allergy Anaphylaxis Verified 11/14/19 15:35 Penicillins Allergy stopped Verified 11/14/19 15:35 breathing Sulfa (Sulfonamide AdvReac Dyspnea,alem Verified 11/14/19 15:35 Antibiotics) h Physical Exam Vitals: Vital Signs Temp Pulse Pulse Resp BP BP Pulse Ox 11/14/19 19:40 98.3 F 70 18 134/86 100 11/14/19 16:00 98.2 F 64 16 138/72 100 11/14/19 13:00 98.2 F 65 18 147/97 99 11/14/19 12:34 97.9 F 61 16 148/74 99 11/14/19 10:46 59 L 16 147/88 100 11/14/19 08:40 141/96 11/14/19 08:36 97.9 F 61 16 97 Intake and Output 11/14/19 11/14/19 11/14/19 06:59 14:59 22:59 Output Total 200 Balance -200 Output: Urine 200 Other: Voiding Method Toilet Weight 99.79 kg 99.79 kg Results CBC & Chem 7: 11/14/19 08:41 11/14/19 08:41 Labs: Abnormal Lab Results - Last 24 Hours (Table) 11/14/19 11/14/19 Range/Units 08:41 08:41 Chloride 110 H (98-107) mmol/L Glucose 140 H (74-99) mg/dL Total Bilirubin 3.8 H (0.2-1.3) mg/dL AST 192 H (14-36) U/L ALT 263 H (4-34) U/L Alkaline Phosphatase 169 H (38-126) U/L Amylase 3213 H* (30-110) U/L Lipase >29336 H (23-300) U/L Urine Appearance Bloody H (Clear) Urine RBC >182 H (0-5) /hpf Urine WBC 27 H (0-5) /hpf Urine Mucus Occasional H (None) /hpf Microbiology - Last 24 Hours (Table) 11/14/19 08:41 Urine Culture - Preliminary Urine,Voided Thrombosis Risk Factor Assmnt - Choose All That Apply Any of the Below Risk Factors Present?: Yes Each Factor Represents 1 point: Minor surgery planned, Obesity (BMI >25) Other Risk Factors: No Other congenital or acquired thrombophilia - If yes, enter type in comment: No Thrombosis Risk Factor Assessment Total Risk Factor Score: 2 Thrombosis Risk Factor Assessment Level: Low Risk
[2019-11-15] MEDS: SODIUM CHLORIDE 0.9% 1,000 ML IV SCH ×2 (08:10→19:21)
[2019-11-15 08:12] LABS: Basophils % (A) 0 %; Eosinophils # (A) 0.1 k/uL (0-0.7); Eosinophils % (A) 2 %; HCT 37.8 % (34.0-46.0); HGB 12.1 gm/dL (11.4-16.0); Lymphocytes # (A) 1.2 k/uL (1.0-4.8); Lymphocytes % (A) 24 %; MCH 26.6 pg (25.0-35.0); MCHC 32.1 g/dL (31.0-37.0); Mean Platelet Volume 8.8; Monocytes # (A) 0.2 k/uL (0-1.0); Monocytes % (A) 4 %; Neutrophils # (A) 3.6 k/uL (1.3-7.7); Neutrophils % (A) 70 %; Platelet Count 170 k/uL (150-450); RBC 4.55 m/uL (3.80-5.40); RDW 15.1 % (11.5-15.5); WBC 5.2 k/uL (3.8-10.6)
[2019-11-15 08:25] LABS: Prothrombin Time 10.4 sec (9.0-12.0)
[2019-11-15 08:32] LABS: ALT 133 U/L (4-34); AST 50 U/L (14-36); African American GFR (CKD) >90 (>60 ml/min/1.73 sqM); Albumin 3.3 g/dL (3.5-5.0); Alkaline Phosphatase 124 U/L (38-126); Anion Gap 6 mmol/L; Blood Urea Nitrogen 12 mg/dL (7-17); Calcium 8.4 mg/dL (8.4-10.2); Carbon Dioxide 21 mmol/L (22-30); Chloride 113 mmol/L (98-107); Glucose 88 mg/dL (74-99); Non-African American GFR(CKD) >90 (>60 ml/min/1.73 sqM); Potassium 3.6 mmol/L (3.5-5.1); Sodium 140 mmol/L (137-145); Total Bilirubin 1.1 mg/dL (0.2-1.3); Total Protein 5.9 g/dL (6.3-8.2)
[2019-11-15 08:41] LABS: Amylase 490 U/L (30-110)
[2019-11-15] MEDS: PANTOPRAZOLE 40 MG/10 ML VIAL IVP SCH ×2 (09:14→19:51)
--- NOTE | 2019-11-15 09:48 | P.GSCN ---
History of Present Illness Consult date: 11/15/19 Reason for Consult: Gallstone pancreatitis History of present illness: Is a 24-year-old female who is admitted through the emergency room with abdominal pain. Patient's found have evidence of gallstone hepatitis. Patient states her pain is still in the epigastric area today. Past Medical History Past Medical History: Syncope Additional Past Medical History / Comment(s): Syncopal episodes past 5 years. Tilt table test on 04/16/18 pt states heart paused and she was given CPR. Chronic low back pain, vertigo, BP fluctuates. Asthma in childhood/during (required inhaler). History of Any Multi-Drug Resistant Organisms: None Reported Past Surgical History: Adenoidectomy, Section, Tonsillectomy Additional Past Surgical History / Comment(s): 04/16/18 Tilt Table Test, oral surgery as a child, loop recorder, x2 Past Anesthesia/Blood Transfusion Reactions: No Reported Reaction Smoking Status: Never smoker - Past Family History Father Family Medical History: Cancer Additional Family Medical History / Comment(s): 2 cardiac surgeries. Mother Additional Family Medical History / Comment(s): Sinus problems and DDD. Hysterectomy r/t female health problems. History of borderline diabetic. Sister(s) Family Medical History: Seizure Disorder Medications and Allergies Home Medications Medication Instructions Recorded Confirmed Type Ibuprofen [Motrin] 600 mg PO Q8HR PRN 11/14/19 11/14/19 History Norlyda 1 tab PO DAILY 11/14/19 11/14/19 History Allergies Allergy/AdvReac Type Severity Reaction Status Date / Time gabapentin [From Neurontin] Allergy Anaphylaxis Verified 11/14/19 15:35 Penicillins Allergy stopped Verified 11/14/19 15:35 breathing Sulfa (Sulfonamide AdvReac Dyspnea,alem Verified 11/14/19 15:35 Antibiotics) h Surgical - Exam Vital Signs Temp Pulse Resp Pulse Ox 97.9 F 61 16 97 11/14/19 08:36 11/14/19 08:36 11/14/19 08:36 11/14/19 08:36 - General well developed, well nourished, no distress - Eyes PERRL - ENT normal pinna - Neck no masses - Respiratory normal expansion - Cardiovascular Rhythm: regular - Abdomen Mild epigastric tenderness Abdomen: soft Results - Labs 11/15/19 07:52 11/15/19 07:52 Abnormal Lab Results - Last 24 Hours (Table) 11/14/19 11/15/19 Range/Units 08:41 07:52 Chloride 110 H 113 H (98-107) mmol/L Carbon Dioxide 21 L (22-30) mmol/L Glucose 140 H (74-99) mg/dL Total Bilirubin 3.8 H (0.2-1.3) mg/dL AST 192 H 50 H (14-36) U/L ALT 263 H 133 H (4-34) U/L Alkaline Phosphatase 169 H (38-126) U/L Total Protein 5.9 L (6.3-8.2) g/dL Albumin 3.3 L (3.5-5.0) g/dL Amylase 3213 H* 490 H* (30-110) U/L Lipase >23621 H 3361 H (23-300) U/L Microbiology - Last 24 Hours (Table) 11/14/19 08:41 Urine Culture - Preliminary Urine,Voided Diabetes panel 11/14/19 11/15/19 Range/Units 08:41 07:52 Sodium 140 140 (137-145) mmol/L Potassium 3.8 3.6 (3.5-5.1) mmol/L Chloride 110 H 113 H (98-107) mmol/L Carbon Dioxide 24 21 L (22-30) mmol/L BUN 12 12 (7-17) mg/dL Creatinine 0.76 0.68 (0.52-1.04) mg/dL Glucose 140 H 88 (74-99) mg/dL Calcium 8.9 8.4 (8.4-10.2) mg/dL AST 192 H 50 H (14-36) U/L ALT 263 H 133 H (4-34) U/L Alkaline Phosphatase 169 H 124 (38-126) U/L Total Protein 7.3 5.9 L (6.3-8.2) g/dL Albumin 4.3 3.3 L (3.5-5.0) g/dL Calcium panel 11/14/19 11/15/19 Range/Units 08:41 07:52 Calcium 8.9 8.4 (8.4-10.2) mg/dL Albumin 4.3 3.3 L (3.5-5.0) g/dL Pituitary panel 11/14/19 11/15/19 Range/Units 08:41 07:52 Sodium 140 140 (137-145) mmol/L Potassium 3.8 3.6 (3.5-5.1) mmol/L Chloride 110 H 113 H (98-107) mmol/L Carbon Dioxide 24 21 L (22-30) mmol/L BUN 12 12 (7-17) mg/dL Creatinine 0.76 0.68 (0.52-1.04) mg/dL Glucose 140 H 88 (74-99) mg/dL Calcium 8.9 8.4 (8.4-10.2) mg/dL Adrenal panel 11/14/19 11/15/19 Range/Units 08:41 07:52 Sodium 140 140 (137-145) mmol/L Potassium 3.8 3.6 (3.5-5.1) mmol/L Chloride 110 H 113 H (98-107) mmol/L Carbon Dioxide 24 21 L (22-30) mmol/L BUN 12 12 (7-17) mg/dL Creatinine 0.76 0.68 (0.52-1.04) mg/dL Glucose 140 H 88 (74-99) mg/dL Calcium 8.9 8.4 (8.4-10.2) mg/dL Total Bilirubin 3.8 H 1.1 (0.2-1.3) mg/dL AST 192 H 50 H (14-36) U/L ALT 263 H 133 H (4-34) U/L Alkaline Phosphatase 169 H 124 (38-126) U/L Total Protein 7.3 5.9 L (6.3-8.2) g/dL Albumin 4.3 3.3 L (3.5-5.0) g/dL Assessment and Plan Assessment: Gallstone pancreas. Patient be scheduled for laparoscopic ostectomy on Sunday. We will continue to observe her liver function tests
--- NOTE | 2019-11-15 11:23 | PN ---
PROGRESS NOTE DATE OF SERVICE: November 15, 2019 Patient is a 24-year-old pleasant white female admitted to hospital with acute gallstone pancreatitis and elevated LFTs and jaundice. She is doing much better today. Abdominal pain has significantly improved. She took pain medication only once last night. This morning has mild epigastric pain. No nausea, no vomiting. Feels hungry. PHYSICAL EXAMINATION: Appears comfortable. VITAL SIGNS: Stable. Blood pressure 128/80, pulse rate 79, temperature 98.6. HEENT examination unremarkable. Conjunctivae pink. Sclerae anicteric. Oral cavity no lesions. NECK no JVD. No lymph node enlargement. CHEST was clear to auscultation. HEART: Regular rate and rhythm. ABDOMEN: Soft. Bowel sounds are positive. Mild tenderness in the epigastric area. Rest of the abdomen was benign. EXTREMITIES: No pedal edema. SKIN no rashes. NEUROLOGIC: Alert and oriented x3. No focal deficits. LABS: WBC 5.2, hemoglobin 12.1. Platelets normal. PT/INR is normal. T-bilirubin is down to 1.1. AST and ALT are 50 and 133 respectively, alkaline phosphatase 124, amylase is down to 490, lipase is 3361. IMPRESSION: 1. Acute gallstone pancreatitis, gradually improving. Patient symptomatic has significantly improved. LFTs have improved. Jaundice resolved. Amylase and lipase have decreased. 2. Elevated liver function tests, gradually improving. RECOMMENDATIONS: 1. Start on clear liquid diet. 2. Monitor LFTs closely. 3. Since her LFTs are gradually improving and bilirubin has normalized, no need for any endoscopic intervention at the present time. 4. Will follow with you closely. Thank you for this consultation. MMODL / IJN: [id number] /
--- NOTE | 2019-11-15 19:31 | P.PN ---
Progress Note - Text Progress Note Date: 11/15/19 Chief Complaint: Abdominal pain History of presenting complaint: This is a pleasant 24-year-old patient of Dr. Guerra. Patient's had a history of several syncopes presyncope's. Workup in the past included a tilt table test that was positive. And medical diagnoses of neurocardiogenic syncope was made. Patient did undergo a loop recorder placement by Dr. Jones Danielson a few months ago. No arrhythmias been detected. Patient's symptoms since then had been bit better. 2 days ago patient not feeling well at work her blood pressure was noted to be a bit high. Then she went home. And she vomited she went to the ER and then she was sent home from there. Yesterday was just not feeling right some abdominal discomfort. This morning she had severe upper abdominal pain nausea vomiting in that she passed out. No fever no chills. Found to have greatly elevated amylase lipase in the ER. Admitted with gallstone pancreatitis. Started on IV fluids. Pain control. Today-feeling better. No nausea vomiting. No fever. Decreased abdominal pain. Review of systems: Was done for constitutional, cardiovascular, GI, pulmonary. relevant finding as above Active Medications Hydromorphone HCl (Hydromorphone 1 Mg/Ml 1 Ml Syringe) 1 mg IVP Q3H PRN PRN Reason: Pain Last Admin: 11/14/19 20:33 Dose: 1 mg Documented by: Sodium Chloride (Saline 0.9%) 1,000 mls @ 150 mls/hr IV .[id number] REPLACED BY [facility] Last Admin: 11/15/19 19:21 Dose: Not Given Documented by: Naloxone HCl (Naloxone 0.4 Mg/Ml 1 Ml Vial) 0.2 mg IV Q2M PRN PRN Reason: Opioid Reversal Ondansetron HCl (Ondansetron 4 Mg/2 Ml Vial) 4 mg IVP Q6HR PRN PRN Reason: Nausea And Vomiting Pantoprazole Sodium (Pantoprazole 40 Mg/10 Ml Vial) 40 mg IVP BID REPLACED BY [facility] Last Admin: 11/15/19 09:14 Dose: 40 mg Documented by: Physical examination: VITAL SIGNS: 98.6, 77, 20, 115/74, 99% room air GENERAL: Propped up in bed, looking better EYES: Pupils equal. Conjunctiva normal. HEENT: External appearance of nose and ears normal, oral cavity grossly normal. NECK: JVD not raised; masses not palpable. HEART: First and second heart sounds are normal; no edema. LUNGS: Respiratory rate normal; clear to auscultation. ABDOMEN: Soft, some epigastric tenderness, no guarding rigidity, liver spleen not palpable, no masses palpable. PSYCH: Alert and oriented x3; mood and affect normal. INVESTIGATIONS, reviewed in the clinical context: White count 5.2 hemoglobin 12.1 potassium 3.6 AST 50 ALT 133 Previous testing White count 9.9 hemoglobin 14.4 platelets 225 potassium 3.8 creatinine 0.76 Total bilirubin 3.8 AST 192 ALT 263 amylase 3213 lipase greater than 20,000 EKG tracing personally reviewed by me-normal sinus rhythm Chest x-ray film personally reviewed by me-no infiltrates Abdominal ultrasound-gallbladder shows multiple tiny mobile stones. Common bile duct dilated 1.2 cm Assessment: -Acute severe gallstone pancreatitis-clinically improving -Multiple gallstones -Obesity BMI 30.7 -Neurocardiogenic syncope patient does have a loop recorder in place. -Obstructive hepatitis Plan: Continue current medication plan. Patient will need cholecystectomy hopefully Sunday. Provided she continues to improve. Discussed with the patient. Encouraged to ambulate
[2019-11-15] MEDS: HYDROmorphone 1 MG/ML 1 ML SYRINGE IVP PRN (19:50)
[2019-11-16] MEDS: SODIUM CHLORIDE 0.9% 1,000 ML IV SCH ×4 (04:19→18:33)
[2019-11-16 07:33] LABS: ALT 89 U/L (4-34); AST 26 U/L (14-36); African American GFR (CKD) >90 (>60 ml/min/1.73 sqM); Albumin 3.1 g/dL (3.5-5.0); Alkaline Phosphatase 106 U/L (38-126); Anion Gap 4 mmol/L; Blood Urea Nitrogen 5 mg/dL (7-17); Calcium 8.5 mg/dL (8.4-10.2); Carbon Dioxide 23 mmol/L (22-30); Chloride 112 mmol/L (98-107); Glucose 92 mg/dL (74-99); Non-African American GFR(CKD) >90 (>60 ml/min/1.73 sqM); Potassium 3.6 mmol/L (3.5-5.1); Sodium 139 mmol/L (137-145); Total Bilirubin 0.9 mg/dL (0.2-1.3); Total Protein 5.7 g/dL (6.3-8.2)
[2019-11-16] MEDS: PANTOPRAZOLE 40 MG/10 ML VIAL IVP SCH ×2 (09:17→21:28)
--- NOTE | 2019-11-16 09:51 | P.PN ---
Progress Note - Text Progress Note Date: 11/16/19 Patient feels better today. Her abdominal pain is improved. On exam vital signs are stable. Abdomen soft. Gallstone hepatitis. Patient will be scheduled for laparoscopic cholestatic to be in a.m.
--- NOTE | 2019-11-16 12:15 | PN ---
PROGRESS NOTE DATE OF DICTATION: November 16, 2019 Patient is a 24-year-old pleasant white female admitted to the hospital with acute gallstone pancreatitis. She is doing much better today. Abdominal pain has almost completely resolved on a clear liquid diet, tolerating well. No fever, chills, night sweats. PHYSICAL EXAMINATION: Appears comfortable in no apparent distress. Vital signs stable. Blood pressure is 124/77, pulse is 78, temperature 98.6. HEENT examination unremarkable. Conjunctivae pink. Sclerae anicteric. Oral cavity no lesions. NECK no JVD or lymph node enlargement. CHEST was clear to auscultation. HEART: Regular rate and rhythm. ABDOMEN: Soft. Minimal tenderness in the epigastric area. Rest of the abdomen was benign. Bowel sounds are positive. EXTREMITIES: No pedal edema. NEURO: She is alert and oriented x3. No focal deficits. LABS: From today: AST and ALT are 26 and 86 respectively. T-bilirubin 0.9, alkaline phosphatase 106. Amylase and lipase are not done. IMPRESSION: 1. Acute gallstone pancreatitis with almost normalized serum transaminases. The patient is clinically doing well. Abdominal pain has completely resolved. On a clear liquid diet, tolerating well. 2. Elevated LFTs, resolved, possibly she passed the CBD stone spontaneously. 3. Symptomatic gallstones. RECOMMENDATIONS: 1. Advance to a full liquid diet. 2. Monitor LFTs closely. 3. She is scheduled for laparoscopic cholecystectomy by Dr. Baldwin tomorrow. 4. We will follow with you closely. Thank you for this consultation. MMODL / IJN: [id number] /
--- NOTE | 2019-11-16 17:01 | P.PN ---
Progress Note - Text Progress Note Date: 11/16/19 Chief Complaint: Abdominal pain History of presenting complaint: This is a pleasant 24-year-old patient of Dr. Guerra. Patient's had a history of several syncopes presyncope's. Workup in the past included a tilt table test that was positive. And medical diagnoses of neurocardiogenic syncope was made. Patient did undergo a loop recorder placement by Dr. Jones Danielson a few months ago. No arrhythmias been detected. Patient's symptoms since then had been bit better. 2 days ago patient not feeling well at work her blood pressure was noted to be a bit high. Then she went home. And she vomited she went to the ER and then she was sent home from there. Yesterday was just not feeling right some abdominal discomfort. This morning she had severe upper abdominal pain nausea vomiting in that she passed out. No fever no chills. Found to have greatly elevated amylase lipase in the ER. Admitted with gallstone pancreatitis. Started on IV fluids. Pain control. Today-continues to improve. No nausea vomiting. No abdominal pain. Feeling well. Review of systems: Was done for constitutional, cardiovascular, GI, pulmonary. relevant finding as above Active Medications Hydromorphone HCl (Hydromorphone 1 Mg/Ml 1 Ml Syringe) 1 mg IVP Q3H PRN PRN Reason: Pain Last Admin: 11/15/19 19:50 Dose: 1 mg Documented by: Sodium Chloride (Saline 0.9%) 1,000 mls @ 75 mls/hr IV .[id number] [facility] Last Admin: 11/16/19 15:08 Dose: Not Given Documented by: Naloxone HCl (Naloxone 0.4 Mg/Ml 1 Ml Vial) 0.2 mg IV Q2M PRN PRN Reason: Opioid Reversal Ondansetron HCl (Ondansetron 4 Mg/2 Ml Vial) 4 mg IVP Q6HR PRN PRN Reason: Nausea And Vomiting Pantoprazole Sodium (Pantoprazole 40 Mg/10 Ml Vial) 40 mg IVP BID [facility] Last Admin: 11/16/19 09:17 Dose: 40 mg Documented by: Physical examination: VITAL SIGNS: 98.2, 69, 18, 125/76, 98% room air GENERAL: Propped up in bed, comfortable EYES: Pupils equal. Conjunctiva normal. HEENT: External appearance of nose and ears normal, oral cavity grossly normal. NECK: JVD not raised; masses not palpable. HEART: First and second heart sounds are normal; no edema. LUNGS: Respiratory rate normal; clear to auscultation. ABDOMEN: Soft, no tenderness, no guarding rigidity, liver spleen not palpable, no masses palpable. PSYCH: Alert and oriented x3; mood and affect normal. INVESTIGATIONS, reviewed in the clinical context: Potassium 3.6 creatinine 0.55 AST 26 ALT 89 Previous testing White count 9.9 hemoglobin 14.4 platelets 225 potassium 3.8 creatinine 0.76 Total bilirubin 3.8 AST 192 ALT 263 amylase 3213 lipase greater than 20,000 EKG tracing personally reviewed by me-normal sinus rhythm Chest x-ray film personally reviewed by me-no infiltrates Abdominal ultrasound-gallbladder shows multiple tiny mobile stones. Common bile duct dilated 1.2 cm Assessment: -Acute severe gallstone pancreatitis-clinically improving -Multiple gallstones -Obesity BMI 30.7 -Neurocardiogenic syncope patient does have a loop recorder in place. -Obstructive hepatitis from gallstones-improving -Hyperbilirubinemia from gallstone obstruction improving Plan: Improving. Patient due for cholecystectomy tomorrow. Discussed with patient. Encouraged to ambulate. Repeat labs
[2019-11-17] MEDS: SODIUM CHLORIDE 0.9% 1,000 ML IV SCH (06:02)
[2019-11-17 08:06] LABS: ALT 75 U/L (4-34); AST 26 U/L (14-36); African American GFR (CKD) >90 (>60 ml/min/1.73 sqM); Albumin 3.6 g/dL (3.5-5.0); Alkaline Phosphatase 108 U/L (38-126); Amylase 76 U/L (30-110); Anion Gap 7 mmol/L; Blood Urea Nitrogen 4 mg/dL (7-17); Carbon Dioxide 22 mmol/L (22-30); Chloride 111 mmol/L (98-107); Glucose 99 mg/dL (74-99); Non-African American GFR(CKD) >90 (>60 ml/min/1.73 sqM); Potassium 3.6 mmol/L (3.5-5.1); Sodium 140 mmol/L (137-145); Total Bilirubin 0.7 mg/dL (0.2-1.3); Total Protein 6.4 g/dL (6.3-8.2)
[2019-11-17] MEDS: PANTOPRAZOLE 40 MG/10 ML VIAL IVP SCH ×2 (08:26→20:13)
[2019-11-17] MEDS ORDERED: IV FLUID CONTINUATION 1,000 ML IV ONE ×2 (13:36)
[2019-11-17] MEDS ORDERED: BUPIVACAINE (PF) 0.25% 30 ML VIAL SQ ONE (13:57)
[2019-11-17] MEDS ORDERED: GLYCOPYRROLATE 0.2 MG/ML 2 ML VIAL ONE (13:58)
[2019-11-17] MEDS ORDERED: NEOSTIGMINE 1 MG/ML 10 ML VIAL ONE (13:58)
[2019-11-17] MEDS ORDERED: SUCCINYLCHOLINE CHLORIDE 100 MG/5 ML SYR IV ONE (13:58)
[2019-11-17] MEDS ORDERED: LIDOCAINE 1% INJ 10MG/ML (20 ML MDV) ONE (13:58)
[2019-11-17] MEDS ORDERED: fentaNYL (PF) 50 MCG/ML 2 ML AMP ONE (13:58)
[2019-11-17] MEDS ORDERED: PROPOFOL 10 MG/ML 20 ML VIAL IV ONE (13:58)
[2019-11-17] MEDS ORDERED: ROCURONIUM 10 MG/ML (5 ML VIAL) IV ONE (13:58)
[2019-11-17] MEDS ORDERED: MIDAZOLAM 2 MG/2 ML VIAL ONE (13:58)
[2019-11-17] MEDS ORDERED: HEPARIN SODIUM,PORCINE 5,000 UNIT/ML 1 ML VIAL ONE (14:01)
[2019-11-17] MEDS ORDERED: CLINDAMYCIN 150 MG/ML 4 ML VIAL IVPB ONE (14:19)
[2019-11-17] MEDS ORDERED: LACTATED RINGERS 1,000 ML IV ONE (14:32)
--- NOTE | 2019-11-17 14:43 | P.OP ---
Date of Procedure: 11/17/19 Preoperative Diagnosis: Gallstone pancreatitis Postoperative Diagnosis: Gallstone pancreatitis Procedure(s) Performed: Laparoscopic cholecystectomy Anesthesia: REYES Surgeon: Chris Baldwin Estimated Blood Loss (ml): 5 Pathology: other (Gallbladder) Condition: stable Disposition: PACU Description of Procedure: The patient was placed on the operating table. The patient received a general endotracheal tube anesthesia. The patients abdomen was prepped and draped in the usual sterile fashion. Through an infraumbilical stab incision, the fascia of the anterior abdominal wall was grasped with a pair of Kochers and then the Veress needle was placed in the peritoneal cavity. Position of the Veress needle was confirmed with positive drop test. The abdomen was then insufflated. After adequate insufflation, the 10 mm trocar was placed in the peritoneal cavity. Following this the laparoscope was placed in the peritoneal cavity. The patient was placed in the head-up, right side up position and then a 5 mm trocar was placed in the right lateral and right subcostal position under direct visualization. A 8 mm trocar was placed in the epigastric position. The gallbladder was grasped in the fundus and infundibulum. Traction on the gallbladder was placed in the lateral and the cephalad positions. The triangle of Calot was visualized.. The cystic duct was bluntly dissected until the union of the cystic duct and common bile duct was seen. A critical view of safety was achieved. The cystic duct was then divided and sealed with the Harmonic scissors. A PDS Endoloop was then placed throughout the cystic duct stump. The cystic artery divided and sealed with the Harmonic scissors. The gallbladder was then removed from the liver bed using Harmonic scissors. The gallbladder was then extracted through the epigastric port site. Operative field was checked for any bleeding spots and Harmonic scissors was used to coagulate the liver bed. The abdomen was irrigated. The trocars were removed. The skin was closed using interrupted 3-0 Vicryl suture. Dermabond dressing were applied. The patient tolerated the procedure well.
[2019-11-17] MEDS ORDERED: HYDROmorphone 1 MG/ML 1 ML SYRINGE IVP ONE ×2 (14:54→15:00)
--- NOTE | 2019-11-17 17:14 | P.PN ---
Progress Note - Text Progress Note Date: 11/17/19 Chief Complaint: Abdominal pain History of presenting complaint: This is a pleasant 24-year-old patient of Dr. Guerra. Patient's had a history of several syncopes presyncope's. Workup in the past included a tilt table test that was positive. And medical diagnoses of neurocardiogenic syncope was made. Patient did undergo a loop recorder placement by Dr. Jones Danielson a few months ago. No arrhythmias been detected. Patient's symptoms since then had been bit better. 2 days ago patient not feeling well at work her blood pressure was noted to be a bit high. Then she went home. And she vomited she went to the ER and then she was sent home from there. Yesterday was just not feeling right some abdominal discomfort. This morning she had severe upper abdominal pain nausea vomiting in that she passed out. No fever no chills. Found to have greatly elevated amylase lipase in the ER. Admitted with gallstone pancreatitis. Started on IV fluids. Pain control. Today-sitting up. Comfortable. Saw patient this morning. Due to go down for surgery this afternoon. Mother is present. Review of systems: Was done for constitutional, cardiovascular, GI, pulmonary. relevant finding as above Active Medications Hydrocodone Bitart/Acetaminophen (Hydrocodone/Apap 7.5-325mg 1 Each Tab) 1 each PO Q6H PRN PRN Reason: Pain Enoxaparin Sodium (Enoxaparin 40 Mg/0.4 Ml Syringe) 40 mg SQ DAILY IVELISSE Hydromorphone HCl (Hydromorphone 1 Mg/Ml 1 Ml Syringe) 1 mg IVP Q3H PRN PRN Reason: Pain Last Admin: 11/15/19 19:50 Dose: 1 mg Documented by: Sodium Chloride (Saline 0.9%) 1,000 mls @ 75 mls/hr IV .[id number] IVELISSE Last Admin: 11/17/19 06:02 Dose: 75 mls/hr Documented by: Naloxone HCl (Naloxone 0.4 Mg/Ml 1 Ml Vial) 0.2 mg IV Q2M PRN PRN Reason: Opioid Reversal Ondansetron HCl (Ondansetron 4 Mg/2 Ml Vial) 4 mg IVP Q6HR PRN PRN Reason: Nausea And Vomiting Last Admin: 11/17/19 13:36 Dose: 4 mg Documented by: Pantoprazole Sodium (Pantoprazole 40 Mg/10 Ml Vial) 40 mg IVP BID IVELISSE Last Admin: 11/17/19 08:26 Dose: 40 mg Documented by: Physical examination: VITAL SIGNS: 97, 61, 20, 139/87 99% room air GENERAL: Propped up in bed, comfortable EYES: Pupils equal. Conjunctiva normal. HEENT: External appearance of nose and ears normal, oral cavity grossly normal. NECK: JVD not raised; masses not palpable. HEART: First and second heart sounds are normal; no edema. LUNGS: Respiratory rate normal; clear to auscultation. ABDOMEN: Soft, no tenderness, no guarding rigidity, liver spleen not palpable, no masses palpable. PSYCH: Alert and oriented x3; mood and affect normal. INVESTIGATIONS, reviewed in the clinical context: Potassium 3.6 creatinine 0.56 lipase 309 Previous testing White count 9.9 hemoglobin 14.4 platelets 225 potassium 3.8 creatinine 0.76 Total bilirubin 3.8 AST 192 ALT 263 amylase 3213 lipase greater than 20,000 EKG tracing personally reviewed by me-normal sinus rhythm Chest x-ray film personally reviewed by me-no infiltrates Abdominal ultrasound-gallbladder shows multiple tiny mobile stones. Common bile duct dilated 1.2 cm Assessment: -Acute severe gallstone pancreatitis-clinically improving -Multiple gallstones -Obesity BMI 30.7 -Neurocardiogenic syncope patient does have a loop recorder in place. -Obstructive hepatitis from gallstones-improving -Hyperbilirubinemia from gallstone obstruction improving Plan: Improving. Patient later this afternoon did undergo a laparoscopic cholecystectomy. Other medications to continue.
--- NOTE | 2019-11-17 17:18 | P.PN ---
Subjective Progress Note Date: 11/17/19 Principal diagnosis: Acute gallstone pancreatitis The patient was seen and examined at the bedside. She states her pain had improved, she denied any nausea or vomiting. She is status post cholecystectomy from this afternoon. She states overall she is doing well. Objective - Vital Signs Vital signs: Vital Signs Temp 97.0 F L 11/17/19 15:45 Pulse 68 11/17/19 16:15 Resp 22 11/17/19 16:15 BP 141/76 11/17/19 16:15 Pulse Ox 98 11/17/19 16:15 Intake & Output 11/16/19 11/17/19 11/17/19 18:59 06:59 18:59 Intake Total 785 Output Total 10 Balance 775 Weight 99.79 kg Intake: IV 785 Output: Estimated Blood Loss 10 Other: Voiding Method Toilet # Voids 1 1 4 - Exam General appearance: The patient is alert, oriented, in no acute distress. HET: Head is normocephalic and atraumatic. Conjunctiva pink. Sclera and icteric. Neck: Supple without lymphadenopathy. Abdomen: Soft, nontender, nondistended with bowel sounds. No guarding or rigidity. Extremities: Normal skin color and turgor. No pedal edema Neurological: No focal deficits. Alert and oriented 3. - Labs CBC & Chem 7: 11/15/19 07:52 11/17/19 07:24 Labs: Abnormal Lab Results - Last 24 Hours (Table) 11/17/19 Range/Units 07:24 Chloride 111 H (98-107) mmol/L BUN 4 L (7-17) mg/dL ALT 75 H (4-34) U/L Lipase 309 H (23-300) U/L Assessment and Plan (1) Acute gallstone pancreatitis Narrative/Plan: The patient came in for acute abdominal pain and was found to have acute gallstone pancreatitis. Her bilirubin and serum transaminases have continued to trend down. The patient is clinically doing well overall. Her abdominal pain had almost completely resolved. She is status post cholecystectomy from today. Current Visit: Yes Status: Acute Code(s): K85.10 - BILIARY ACUTE PANCREATITIS WITHOUT NECROSIS OR INFECTION SNOMED Code(s): 245527743 Plan: 1. Advance diet per surgical recommendations 2. Repeat LFTs in the morning 3. Continue to follow recommendations per surgery. We will sign off at this time, please do not hesitate to contact us with any future concerns. The impression and plan of care has been dictated as directed. I performed a history and examination of this patient, discussed the same with the dictator. I agree with the dictator's note ,documented as a scribe. Any additional findings or plans will be noted.
[2019-11-17] MEDS: HYDROcodone/APAP 7.5-325MG 1 EACH TAB PO PRN (18:13)
[2019-11-18] MEDS: HYDROcodone/APAP 7.5-325MG 1 EACH TAB PO PRN ×2 (00:08→10:01)
[2019-11-18 06:34] LABS: Basophils % (A) 1 %; Eosinophils # (A) 0.1 k/uL (0-0.7); Eosinophils % (A) 4 %; HCT 33.5 % (34.0-46.0); Lymphocytes # (A) 1.3 k/uL (1.0-4.8); Lymphocytes % (A) 32 %; MCH 27.5 pg (25.0-35.0); MCHC 32.8 g/dL (31.0-37.0); MCV 83.7 fL (80.0-100.0); Mean Platelet Volume 8.8; Monocytes # (A) 0.2 k/uL (0-1.0); Monocytes % (A) 5 %; Neutrophils # (A) 2.4 k/uL (1.3-7.7); Neutrophils % (A) 58 %; Platelet Count 184 k/uL (150-450); RBC 4.01 m/uL (3.80-5.40); RDW 14.6 % (11.5-15.5); WBC 4.1 k/uL (3.8-10.6)
[2019-11-18 06:43] LABS: ALT 57 U/L (4-34); AST 23 U/L (14-36); African American GFR (CKD) >90 (>60 ml/min/1.73 sqM); Albumin 3.4 g/dL (3.5-5.0); Alkaline Phosphatase 101 U/L (38-126); Anion Gap 7 mmol/L; Blood Urea Nitrogen 4 mg/dL (7-17); Carbon Dioxide 26 mmol/L (22-30); Chloride 108 mmol/L (98-107); Glucose 97 mg/dL (74-99); Non-African American GFR(CKD) >90 (>60 ml/min/1.73 sqM); Potassium 3.6 mmol/L (3.5-5.1); Sodium 141 mmol/L (137-145); Total Bilirubin 0.7 mg/dL (0.2-1.3)
[2019-11-18] MEDS ORDERED: ENOXAPARIN 40 MG/0.4 ML SYRINGE SQ SCH (09:00)
[2019-11-18 09:10] VITALS: BP 144/80; PULSE 63; RESP 20; TEMP 97.4
[2019-11-18] MEDS: PANTOPRAZOLE 40 MG/10 ML VIAL IVP SCH (09:45)
--- NOTE | 2019-11-18 10:15 | P.PN ---
Subjective Progress Note Date: 11/18/19 CHIEF COMPLAINT: Gallstone pancreatitis HISTORY OF PRESENT ILLNESS: Patient is status post laparoscopic cholecystectomy. She is tolerating a low-fat diet. Abdominal pain is controlled. She denies any nausea or vomiting. She is afebrile. White count 4.1 AST 23 ALT of 7 PHYSICAL EXAM: VITAL SIGNS: Reviewed. GENERAL: Well-developed in no acute distress. HEENT: No sclera icterus. Extraocular movements grossly intact. Moist buccal mucosa. Head is atraumatic, normocephalic. ABDOMEN: Soft. Nondistended. NEUROLOGIC: Alert and oriented. Cranial nerves II through XII grossly intact. ASSESSMENT: 1. Gallstone pancreatitis status post laparoscopic cholecystectomy postop day #1 PLAN: -Continue low-fat diet -Patient is surgically stable for discharge -Patient follow-up with Dr. Baldwin in 1 week Physician Geophysical Data Technician note has been reviewed by physician. Signing provider agrees with the documented findings, assessment, and plan of care. Objective - Vital Signs Vital signs: Vital Signs Temp 97.4 F L 11/18/19 08:29 Pulse 63 11/18/19 08:29 Resp 20 11/18/19 08:29 BP 144/80 11/18/19 08:29 Pulse Ox 98 11/18/19 08:29 Intake & Output 11/17/19 11/18/19 11/18/19 18:59 06:59 18:59 Intake Total 785 Output Total 10 Balance 775 Weight 99.79 kg Intake: IV 785 Output: Estimated Blood Loss 10 Other: Voiding Method Toilet # Voids 2 1 1 - Labs CBC & Chem 7: 11/18/19 05:59 11/18/19 05:59 Labs: Abnormal Lab Results - Last 24 Hours (Table) 11/18/19 11/18/19 Range/Units 05:59 05:59 Hgb 11.0 L (11.4-16.0) gm/dL Hct 33.5 L (34.0-46.0) % Chloride 108 H (98-107) mmol/L BUN 4 L (7-17) mg/dL ALT 57 H (4-34) U/L Total Protein 6.0 L (6.3-8.2) g/dL Albumin 3.4 L (3.5-5.0) g/dL
[2019-11-18] MEDS: SODIUM CHLORIDE 0.9% 1,000 ML IV SCH (11:36)
--- NOTE | 2019-11-18 19:23 | P.DS ---
Providers Date of admission: 11/14/19 11:50 Expected date of discharge: 11/18/19 Attending physician: Familia Chambers Consults: 11/14/19 11:51 Consult Physician Routine Consulting Provider: Radhika Ramirez Consult Reason/Comments: suspected gallstone pancreatitis Do you want consulting provider notified?: Yes 11/14/19 14:18 Consult Physician Routine Consulting Provider: Chris Baldiwn Consult Reason/Comments: pancreatitis, stone thought to be origin Do you want consulting provider notified?: Yes, Notify in am Consult Physician Routine Consulting Provider: Radhika Ramirez Consult Reason/Comments: pancreatitis Do you want consulting provider notified?: Yes, Notify in am [facility] Course: Chief Complaint: Abdominal pain History of presenting complaint: This is a pleasant 24-year-old patient of Dr. Guerra. Patient's had a history of several syncopes presyncope's. Workup in the past included a tilt table test that was positive. And medical diagnoses of neurocardiogenic syncope was made. Patient did undergo a loop recorder placement by Dr. Jones Danielson a few months ago. No arrhythmias been detected. Patient's symptoms since then had been bit better. 2 days ago patient not feeling well at work her blood pressure was noted to be a bit high. Then she went home. And she vomited she went to the ER and then she was sent home from there. Yesterday was just not feeling right some abdominal discomfort. This morning she had severe upper abdominal pain nausea vomiting in that she passed out. No fever no chills. Found to have greatly elevated amylase lipase in the ER. Admitted with gallstone pancreatitis. Started on IV fluids. Pain control. November 16 underwent laparoscopic cholecystectomy. Today-tolerated diet. No abdominal pain. No nausea vomiting. Up and about. Consultation: Dr. Baldwin from general surgery Dr. Paulette Ramirez from GI Physical examination: VITAL SIGNS: 97.4, 63, 20, 1 44 x 80, 98% room air GENERAL: Sitting up, comfortable EYES: Pupils equal. Conjunctiva normal. HEENT: External appearance of nose and ears normal, oral cavity grossly normal. NECK: JVD not raised; masses not palpable. HEART: First and second heart sounds are normal; no edema. LUNGS: Respiratory rate normal; clear to auscultation. ABDOMEN: Soft, minimal tenderness, no guarding rigidity, liver spleen not palpable, no masses palpable. PSYCH: Alert and oriented x3; mood and affect normal. INVESTIGATIONS, reviewed in the clinical context: White count 4.1 hemoglobin 11 platelets 184 potassium 3.6 creatinine 0.6 Previous testing White count 9.9 hemoglobin 14.4 platelets 225 potassium 3.8 creatinine 0.76 Total bilirubin 3.8 AST 192 ALT 263 amylase 3213 lipase greater than 20,000 EKG tracing personally reviewed by me-normal sinus rhythm Chest x-ray film personally reviewed by me-no infiltrates Abdominal ultrasound-gallbladder shows multiple tiny mobile stones. Common bile duct dilated 1.2 cm Assessment: -Acute severe gallstone pancreatitis. POA -Multiple gallstones-laparoscopic cholecystectomy -Obesity BMI 30.7 -Neurocardiogenic syncope patient does have a loop recorder in place. -Obstructive hepatitis from gallstones-improving -Hyperbilirubinemia from gallstone obstruction improving Disposition: Home Patient Condition at Discharge: Stable Plan - Discharge Summary Discharge Rx Participant: No New Discharge Prescriptions: New Docusate [Colace] 100 mg PO BID #30 capsule HYDROcodone/APAP 7.5-325MG [[facility] 7.5-325] 1 tab PO Q6HR PRN 3 Days #12 tab PRN Reason: Pain Continue Norlyda 1 tab PO DAILY Ibuprofen [Motrin] 600 mg PO Q8HR PRN PRN Reason: Pain Discharge Medication List Ibuprofen [Motrin] 600 mg PO Q8HR PRN 11/14/19 [History] Norlyda 1 tab PO DAILY 11/14/19 [History] Docusate [Colace] 100 mg PO BID #30 capsule 11/18/19 [Rx] HYDROcodone/APAP 7.5-325MG [[place] 7.5-325] 1 tab PO Q6HR PRN 3 Days #12 tab 11/18/19 [Rx] Follow up Appointment(s)/Referral(s): Richard Guerra MD [Primary Care Provider] - 1-2 days Chris Baldwin MD [STAFF PHYSICIAN] - 11/27/19 2:00 pm Activity/Diet/Wound Care/Special Instructions: No driving while taking [place] No lifting over 10 pounds You may shower. No soaking or tub baths for 2 weeks Very light activity until you are reevaluated at your follow up appointment with your surgeon call the office for any fever, chills increased pain not covered with pain meds, increased redness or discolored drainage from puncture sites or any concerns. continue to use your Incentive spirometery at home. Last received at [facility] at 1000 good hand washing for all in the house. leave tape over puncture sites Discharge Disposition: HOME SELF-CARE
== END 2019-11-18 11:57 | disposition home or self-care (01) | DRG 417 ==
LOC: EC 08:35 → 6PED 11:50
PROVIDERS: ADMIT Hospitalist; ATTEND Hospitalist
PROC: 0FT44ZZ Resection of Gallbladder, Percutaneous Endoscopic Approach (ICD-10-PCS; principal; 2019-11-17 09:50)
DX: K80.21 Calculus of gallbladder without cholecystitis with obstruction (principal); K85.10 Biliary acute pancreatitis without necrosis or infection; E66.9 Obesity, unspecified; Z68.30 Body mass index [BMI] 30.0-30.9, adult; J45.909 Unspecified asthma, uncomplicated; K75.9 Inflammatory liver disease, unspecified; G89.29 Other chronic pain; M54.9 Dorsalgia, unspecified; Z86.74 Personal history of sudden cardiac arrest; R42 Dizziness and giddiness; Z79.3 Long term (current) use of hormonal contraceptives; Z90.89 Acquired absence of other organs; Z88.0 Allergy status to penicillin; Z88.2 Allergy status to sulfonamides; Z88.8 Allergy status to other drugs, medicaments and biological substances; Z83.3 Family history of diabetes mellitus; Z82.61 Family history of arthritis; Z82.0 Family history of epilepsy and other diseases of the nervous system; Z84.2 Family history of other diseases of the genitourinary system; Z82.49 Family history of ischemic heart disease and other diseases of the circulatory system
CPT/HCPCS: 36415; 71046; 76705; 80053; 81001; 81025; 82150; 83690; 85025; 85610; 87086; 88304; 93005; 96361; 96365; 96375; 99285

== ENCOUNTER 2021-09-10 18:18 | Outpatient (CLI) | payer BC, OTHER ==
[2021-09-10 19:04] LABS: Appearance,Urine Cloudy (Clear); Bacteria,Urine Many /hpf; Bilirubin,Urine Negative (Negative); Blood,Urine Negative (Negative); Color,Urine Light Yellow; Glucose,Urine (UA) Negative (Negative); Ketones,Urine Negative (Negative); Leukocyte Esterase,Urine Large (Negative); Mucus,Urine Rare /hpf; Nitrite,Urine Negative (Negative); PH, Urine 6.5 (5.0-8.0); Protein,Urine Trace (Negative); RBC,Urine 12 /hpf (0-5); Specific Gravity,Urine 1.013 (1.001-1.035); Squamous Epithelial Cell,Urine 51 /hpf (0-4); Urobilinogen,Urine <2.0 mg/dL (<2.0); WBC,Urine 45 /hpf (0-5)
[2021-09-10 19:30] VITALS: BP 126/61; PULSE 81; RESP 18; TEMP 96.6
--- NOTE | 2021-09-30 08:28 | P.MSEPDOC ---
Presenting Problems - Arrival Data Date of Arrival on Unit: 09/10/21 Time of Arrival on Unit: 18:18 Mode of Transport: Ambulatory - Complaint OB-Reason for Admission/Chief Complaint: Pain Comment: constant back and right side pain down into groin. Medical History - Information : 4 Para: 3 Term: 3 : 0 Abortions: Spontaneous or Elective: 0 Number of Living Children: 3 - Gestational Age Gestational Age by TRAY (wks/days): 36 Weeks and 3 Days Review of Systems - Review of Systems Constitutional: No problems Breast: No problems ENT: No problems Cardiovascular: No problems Respiratory: No problems Gastrointestinal: No problems Genitourinary: No problems Musculoskeletal: No problems Neurological: No problems Skin: No problems Vital Signs - Temperature Temperature: 96.6 F Temperature Source: Temporal Artery Scan - Pulse Right Pulse Rate: 81 Pulse Assessment Method: Pulse Oximetry - Respirations Respiratory Rate: 18 Oxygen Delivery Method: Room Air O2 Sat by Pulse Oximetry: 99 - Blood Pressure Right Arm Blood Pressure: 126/61 Blood Pressure Mean: 82 Blood Pressure Source: Automatic Cuff Medical Screen Scoring - Uterine Contractions Intensity: Mild Resting: Soft to palpation - Assessment - Baby A Baseline FHR: 145 Heart Rate - NICHD Category: Category I (Normal) NST: Reactive Physician Notification - Physician Notified Physician Notified Date: 09/10/21 Physician Notified Time: 18:52 Physician: Chaparrita Flowers Order Received: Yes (UA and cervical exam.) Maternal Triage Index - Maternal Triage Index Presenting for scheduled procedure w/no complaint: No - Stat/Priority 1 Stat Priority 1: No - Urgent/Priority 2 Urgent Priority 2: No - Prompt/Priority 3 Prompt Priority 3: No - Non-Urgent/Priority 4 Non-Urgent Priority 4: Yes Criteria Met for Priority 4: Constant back and right side pain going down into groin. Disposition - Disposition OB Disposition: Triage Discharge Date: 09/10/21 Discharge Time: 19:33 I agree with the RN Medical Screening Exam: No Physician's MSE Comment: Inadequate documentation Case reviewed; plan agreed upon as documented in EMR&OBIX.: No Diagnosis: Back pain in
== END 2021-09-10 19:33 | disposition home or self-care (01) ==
LOC: FBPOP 18:18
PROVIDERS: ATTEND Obstetrics & Gynecology
DX: O26.893 Other specified pregnancy related conditions, third trimester (principal); M54.9 Dorsalgia, unspecified; Z3A.36 36 weeks gestation of pregnancy
CPT/HCPCS: 59025; 81001; 87086; 99213

== ENCOUNTER 2022-07-01 19:46 | Emergency (ER) | payer SELFPAY ==
[2022-07-01 19:50] VITALS: TEMP 98.7
[2022-07-01] MEDS ORDERED: ACETAMINOPHEN TAB 325 MG TAB PO STA (20:04)
[2022-07-01] MEDS ORDERED: SODIUM CHLORIDE 0.9% 1,000 ML IV ONE (20:04)
[2022-07-01 21:15] LABS: Basophils % (A) 1 %; Eosinophils # (A) 0.1 k/uL (0-0.7); Eosinophils % (A) 1 %; HCT 39.1 % (34.0-46.0); HGB 13.5 gm/dL (11.4-16.0); Lymphocytes # (A) 2.4 k/uL (1.0-4.8); Lymphocytes % (A) 27 %; MCHC 34.5 g/dL (31.0-37.0); MCV 81.2 fL (80.0-100.0); Mean Platelet Volume 9.9; Monocytes # (A) 0.3 k/uL (0-1.0); Monocytes % (A) 4 %; Neutrophils # (A) 5.7 k/uL (1.3-7.7); Neutrophils % (A) 66 %; Platelet Count 190 k/uL (150-450); RBC 4.81 m/uL (3.80-5.40); RDW 14.4 % (11.5-15.5); WBC 8.6 k/uL (3.8-10.6)
[2022-07-01 21:25] LABS: ALT 13 U/L (4-34); AST 18 U/L (14-36); African American GFR (CKD) >90 (>60 ml/min/1.73 sqM); Albumin 4.6 g/dL (3.5-5.0); Alkaline Phosphatase 43 U/L (38-126); Anion Gap 13 mmol/L; Blood Urea Nitrogen 13 mg/dL (7-17); Carbon Dioxide 26 mmol/L (22-30); Chloride 100 mmol/L (98-107); Glucose 88 mg/dL (74-99); Lipase 151 U/L (23-300); Non-African American GFR(CKD) >90 (>60 ml/min/1.73 sqM); Potassium 3.7 mmol/L (3.5-5.1); Sodium 139 mmol/L (137-145); Total Bilirubin 0.5 mg/dL (0.2-1.3); Total Protein 7.7 g/dL (6.3-8.2)
[2022-07-01 21:34] LABS: Appearance,Urine Clear (Clear); Bilirubin,Urine Negative (Negative); Blood,Urine Negative (Negative); Color,Urine Yellow; Glucose,Urine (UA) Negative (Negative); Ketones,Urine Negative (Negative); Leukocyte Esterase,Urine Trace (Negative); Mucus,Urine Rare /hpf; Nitrite,Urine Negative (Negative); PH, Urine 5.5 (5.0-8.0); Protein,Urine Trace (Negative); RBC,Urine <1 /hpf (0-5); Squamous Epithelial Cell,Urine 1 /hpf (0-4); Urobilinogen,Urine <2.0 mg/dL (<2.0); WBC,Urine 2 /hpf (0-5)
--- NOTE | 2022-07-01 21:45 | US ---
EXAMINATION TYPE: US abdomen limited DATE OF EXAM: 07/01/2022 COMPARISON: Abdominal ultrasound 11/14/2019 CLINICAL INDICATION: Female, 27 years old with history of RUQ abdominal pain; rt flank pain, possible UTI, cholecystectomy TECHNIQUE: Multiple sonographic images of the right upper quadrant are obtained. FINDINGS: EXAM MEASUREMENTS: Liver Length: 19.4 cm Gallbladder Wall: Surgically absent CBD: 0.6 cm Right Kidney: 11.0 x 5.7 x 4.7 cm TICKETING CLERK NOTES:bowel as limits exam Pancreas: wnl Liver: Prominent in size measuring 19.4 cm in length , stable from prior examination on 11/14/2019 Gallbladder: Surgically absent Evidence for sonographic Newby's sign: N/A CBD: Within normal limits Right Kidney: Within normal limits IMPRESSION: No sonographic evidence for acute abnormality in the right upper quadrant as visualized.
[2022-07-01] MEDS ORDERED: ONDANSETRON 4 MG ODT STARTER PACK 2 TAB BTL PO STA (23:13)
--- NOTE | 2022-07-01 23:13 | ED ---
General Adult HPI - General Chief complaint: Abdominal Pain Stated complaint: back, rib and side pain Time Seen by Provider: 07/01/22 19:53 Source: patient, RN notes reviewed Mode of arrival: ambulatory Limitations: no limitations - History of Present Illness Initial comments: 27-year-old medical history presents the emergency department with a chief co mplaint of upper abdominal/rib pain. She describes the pain as localized into the right upper quadrant that radiates around her back. She denies any fever, chills, nausea, vomiting, dysuria, hematuria, melena, hematochezia. She does report that she is approximately 9 weeks . Last menstrual period date 04/29/2022. She denies any vaginal bleeding, vaginal cramping, low back pain. She denies any trauma or injury. She is not taken anything for his symptoms. - Related Data Home Medications Medication Instructions Recorded Confirmed No Known Home Medications 04/04/22 04/04/22 Allergies Allergy/AdvReac Type Severity Reaction Status Date / Time gabapentin [From Neurontin] Allergy Anaphylaxis Verified 07/01/22 19:50 Penicillins Allergy stopped Verified 07/01/22 19:50 breathing Sulfa (Sulfonamide AdvReac Dyspnea,alem Verified 07/01/22 19:50 Antibiotics) h Review of Systems ROS Statement: Those systems with pertinent positive or pertinent negative responses have been documented in the HPI. ROS Other: All systems not noted in ROS Statement are negative. Past Medical History Past Medical History: Syncope Additional Past Medical History / Comment(s): Syncopal episodes past 5 years. Tilt table test on 04/16/18 pt states heart paused and she was given CPR. Chronic low back pain, vertigo, BP fluctuates. Asthma in childhood/during (required inhaler). History of Any Multi-Drug Resistant Organisms: None Reported Past Surgical History: Adenoidectomy, Section, Tonsillectomy Additional Past Surgical History / Comment(s): 04/16/18 Tilt Table Test, oral surgery as a child, loop recorder, x2 Past Anesthesia/Blood Transfusion Reactions: No Reported Reaction Past Psychological History: No Psychological Hx Reported Smoking Status: Never smoker Past Alcohol Use History: None Reported Past Drug Use History: None Reported - Past Family History Father Family Medical History: Cancer Additional Family Medical History / Comment(s): 2 cardiac surgeries. Mother Additional Family Medical History / Comment(s): Sinus problems and DDD. Hysterectomy r/t female health problems. History of borderline diabetic. Sister(s) Family Medical History: Seizure Disorder General Exam - General Exam Comments Initial Comments: General: Alert, in no acute distress Head: atraumatic normocephalic. Eyes PERRL, EOMI intact, mucous membranes moist Respiratory: Lungs clear to auscultation bilaterally Cardiovascular: Heart rate regular rate and rhythm Abdominal: Soft without guarding or rebound Extremities: Normal inspection with full range of motion and normal capillary refill Neuroogic: alert and oriented 3, CN II-XII intact, able to ambulate with steady gait Skin: warm dry and intact with normal color Limitations: no limitations Course Vital Signs 07/01/22 07/01/22 19:47 23:28 Temperature 98.7 F Pulse Rate 75 59 L Respiratory 20 16 Rate Blood Pressure 142/89 126/80 O2 Sat by Pulse 99 100 Oximetry Medical Decision Making - Medical Decision Making Was pt. sent in by a medical professional or institution (, PA, ADOPTION AGENT, urgent care, hospital, or penitentiary...) When possible be specific @ -[No] Did you speak to anyone other than the patient for history (EMS, parent, family, police, friend...)? What history was obtained from this source @ -[No] Did you review nursing and triage notes (agree or disagree)? Why? @ -[I reviewed and agree with nursing and triage notes] Were old charts reviewed (outside hosp., previous admission, EMS record, old EKG, old radiological studies, urgent care reports/EKG's, penitentiary records)? Report findings @ -[No old charts were reviewed] Differential Diagnosis (chest pain, altered mental status, abdominal pain women, abdominal pain men, vaginal bleeding, weakness, fever, dyspnea, syncope, headache, dizziness, GI bleed, back pain, seizure, CVA, palpatations, mental health, musculoskeletal)? @ -[not applicable] EKG interpreted by me (3pts min.). @ -[As above] X-rays interpreted by me (1pt min.). @ -[None done] CT interpreted by me (1pt min.). @ -[None done] U/S interpreted by me (1pt. min.). @ [place] of the gallbladder reveals gallbladder clamps. What testing was considered but not performed or refused? (CT, X-rays, U/S, labs)? Why? @ -[None] What meds were considered but not given or refused? Why? @ -[None] Did you discuss the management of the patient with other professionals (professionals i.e. , PA, ADOPTION AGENT, lab, RT, psych nurse, sexual assault social worker, cancer genetic counselor, teacher, benefits officer, case management social worker)? Give summary @ -[No] Was smoking cessation discussed for >3mins.? @ -[No] Was critical care preformed (if so, how long)? @ -[No] Were there social determinants of health that impacted care today? How? (Homelessness, low income, unemployed, alcoholism, drug addiction, transportation, low edu. Level, literacy, decrease access to med. care, [place] [facility], rehab)? @ -[No] Was there de-escalation of care discussed even if they declined (Discuss DNR or withdrawal of care, Hospice)? DNR status @ -[No] What co-morbidities impacted this encounter? (DM, HTN, Smoking, COPD, CAD, Cancer, CVA, ARF, Chemo, Hep., AIDS, mental health diagnosis, sleep apnea, morbid obesity)? @ -[None] Was patient admitted / discharged? Hospital course, mention meds given and route, prescriptions, significant lab abnormalities, going to OR and other pertinent info. @ -Discharged. This is a 27-year-old female who presents to the emergency department with right upper quadrant abdominal pain. Patient had a thorough history and physical exam which is essentially unremarkable. Heart rate regular rate and rhythm, lungs clear to auscultation bilaterally, abdomen soft nontender. Patient had lab work and imaging performed which was essentially unremarkable. She was given Tylenol and IV fluids with symptomatic relief as patient is 9 weeks . Return precautions were discussed at length. Patient discharged in stable condition. Case discussed with ECP who agrees with plan of care Undiagnosed new problem with uncertain prognosis? @ -[No] Drug Therapy requiring intensive monitoring for toxicity (Heparin, Nitro, Insulin, Cardizem)? @ -[No] Were any procedures done? @ -[No] Diagnosis/symptom? @ -abdominal pain Acute, or Chronic, or Acute on Chronic? @ -Acute Uncomplicated (without systemic symptoms) or Complicated (systemic symptoms)? @ -Uncomplicated Side effects of treatment? @ -[No] Exacerbation, Progression, or Severe Exacerbation? @ -[No] Poses a threat to life or bodily function? How? (Chest pain, [place], MT, pneumonia, PE, COPD, DKA, ARF, appy, cholecystitis, CVA, Diverticulitis, Homicidal, Suicidal, threat to staff... and all critical care pts) @ -Low likleihood - Lab Data Result diagrams: 07/01/22 20:35 07/01/22 20:35 Lab Results 07/01/22 07/01/22 07/01/22 Range/Units 20:35 20:35 20:35 WBC 8.6 (3.8-10.6) k/uL RBC 4.81 (3.80-5.40) m/uL Hgb 13.5 (11.4-16.0) gm/dL Hct 39.1 (34.0-46.0) % MCV 81.2 (80.0-100.0) fL MCH 28.0 (25.0-35.0) pg MCHC 34.5 (31.0-37.0) g/dL RDW 14.4 (11.5-15.5) % Plt Count 190 (150-450) k/uL MPV 9.9 Neutrophils % 66 % Lymphocytes % 27 % Monocytes % 4 % Eosinophils % 1 % Basophils % 1 % Neutrophils # 5.7 (1.3-7.7) k/uL Lymphocytes # 2.4 (1.0-4.8) k/uL Monocytes # 0.3 (0-1.0) k/uL Eosinophils # 0.1 (0-0.7) k/uL Basophils # 0.0 (0-0.2) k/uL Sodium 139 (137-145) mmol/L Potassium 3.7 (3.5-5.1) mmol/L Chloride 100 (98-107) mmol/L Carbon Dioxide 26 (22-30) mmol/L Anion Gap 13 mmol/L BUN 13 (7-17) mg/dL Creatinine 0.57 (0.52-1.04) mg/dL Est GFR (CKD-EPI)AfAm >90 (>60 ml/min/1.73 sqM) Est GFR (CKD-EPI)NonAf >90 (>60 ml/min/1.73 sqM) Glucose 88 (74-99) mg/dL Calcium 10.0 (8.4-10.2) mg/dL Total Bilirubin 0.5 (0.2-1.3) mg/dL AST 18 (14-36) U/L ALT 13 (4-34) U/L Alkaline Phosphatase 43 (38-126) U/L Total Protein 7.7 (6.3-8.2) g/dL Albumin 4.6 (3.5-5.0) g/dL Lipase 151 (23-300) U/L HCG, Quant 287297.0 mIU/mL Urine Color Yellow Urine Appearance Clear (Clear) Urine pH 5.5 (5.0-8.0) Ur Specific [place] 1.030 (1.001-1.035) Urine Protein Trace H (Negative) Urine Glucose (UA) Negative (Negative) Urine Ketones Negative (Negative) Urine Blood Negative (Negative) Urine Nitrite Negative (Negative) Urine Bilirubin Negative (Negative) Urine Urobilinogen <2.0 (<2.0) mg/dL Ur Leukocyte Esterase Trace H (Negative) Urine RBC <1 (0-5) /hpf Urine WBC 2 (0-5) /hpf Ur Squamous Epith Cells 1 (0-4) /hpf Urine Mucus Rare H (None) /hpf Disposition Clinical Impression: Abdominal pain Disposition: HOME SELF-CARE Condition: Stable Instructions (If sedation given, give patient instructions): Abdominal Pain (ED) Additional Instructions: Please return to the nearest emergency department if symptoms worsen or persist Is patient prescribed a controlled substance at d/c from ED?: No Referrals: Richard Guerra MD [Primary Care Provider] - 1-2 days Time of Disposition: 23:12
[2022-07-01 23:41] VITALS: BP 126/80; PULSE 59; RESP 16
== END 2022-07-01 23:28 | disposition home or self-care (01) ==
LOC: EC 19:46
DX: O26.891 Other specified pregnancy related conditions, first trimester (principal); O99.511 Diseases of the respiratory system complicating pregnancy, first trimester; R10.11 Right upper quadrant pain; J45.909 Unspecified asthma, uncomplicated; Z88.0 Allergy status to penicillin; Z88.1 Allergy status to other antibiotic agents; Z88.2 Allergy status to sulfonamides; Z88.8 Allergy status to other drugs, medicaments and biological substances; Z3A.09 9 weeks gestation of pregnancy
CPT/HCPCS: 36415; 76705; 80053; 81001; 83690; 84702; 85025; 96360; 99284

== ENCOUNTER 2022-12-03 11:19 | Outpatient (CLI) | payer OTHER ==
--- NOTE | 2022-12-03 14:04 | US ---
EXAMINATION TYPE: US OB >= 14 wk fetus DATE OF EXAM: 12/03/2022 COMPARISON: None CLINICAL INDICATION: Female, 27 years old with history of bleeding; Vaginal bleeding, known placenta previa TECHNIQUE: Transabdominal (TA) GESTATIONAL AGE / DATING Physician Established: (30 weeks/6 days) EDC: 02/05/2023 Dates by LMP: (30 weeks/6 days) EDC: 02/05/2023 Dates by First Scan: No previous this is first scan Dates by Current Scan: (30 weeks/3 days) EDC: 02/08/2023 SURVEY IUP: Single PLACENTA: Anterior & Posterior PREVIA: Complete ELSA: 7.8 cm Oligohydramnios CERVICAL LENGTH (transabdominal: norm > 3.0cm): 3.3 cm BIOMETRY PRESENTATION: Vertex BPD: 7.7 cm 30 weeks / 5 days HC: 28.1 cm 30 weeks / 6 days AC: 25.1 cm 29 weeks / 2 days FL: 5.8 cm 30 weeks / 4 days ESTIMATED WEIGHT IN GRAMS: 1480 grams ESTIMATED WEIGHT IN LBS/OZ: 3 lbs. 4 oz. WEIGHT PERCENTAGE BASED ON ESTABLISHED DATES: 13% HC/AC: 1.12 Normal FL/AC: 23 Normal HEART RATE: 144 bpm RHYTHM: Normal Results given to L&D at time of exam Placenta previa, Low ELSA IMPRESSION: 1. Placenta previa, 2. Low of ELSA Oligohydramnios 3. Single live intrauterine gestation ultrasound age 30 weeks 3 days.
[2022-12-03 17:09] VITALS: BP 137/80; PULSE 71; RESP 16; TEMP 97.5
--- NOTE | 2022-12-08 10:46 | P.MSEPDOC ---
Presenting Problems - Arrival Data Date of Arrival on Unit: 12/03/22 Time of Arrival on Unit: 11:20 Mode of Transport: Ambulatory - Complaint OB-Reason for Admission/Chief Complaint: Vaginal Bleeding Medical History - Information : 5 Para: 4 Term: 4 : 0 Abortions: Spontaneous or Elective: 0 Number of Living Children: 4 - Gestational Age Gestational Age by TRAY (wks/days): 30 Weeks and 6 Days - History Complications: Placenta Previa Review of Systems - Review of Systems Constitutional: No problems Breast: No problems ENT: No problems Cardiovascular: No problems Respiratory: No problems Gastrointestinal: No problems Genitourinary: No problems Musculoskeletal: No problems Neurological: No problems Skin: No problems Vital Signs - Temperature Temperature: 97.5 F Temperature Source: Temporal Artery Scan - Pulse Right Brachial Pulse Rate: 71 Pulse Assessment Method: Automatic Cuff - Respirations Respiratory Rate: 16 Oxygen Delivery Method: Room Air - Blood Pressure Right Arm Blood Pressure: 137/80 Blood Pressure Mean: 99 Blood Pressure Source: Automatic Cuff Medical Screen Scoring - Assessment - Baby A Baseline FHR: 135 Heart Rate - NICHD Category: Category I (Normal) NST: Reactive Physician Notification - Physician Notified Physician Notified Date: 12/03/22 Physician Notified Time: 11:44 Physician: Stefan Rubalcava Order Received: Yes - Notification Comment Comment: ultra sound if wnl d/c home Maternal Triage Index - Maternal Triage Index Presenting for scheduled procedure w/no complaint: No - Stat/Priority 1 Stat Priority 1: No - Urgent/Priority 2 Urgent Priority 2: No - Prompt/Priority 3 Prompt Priority 3: Yes Criteria Met for Priority 3: placenta previa with spotting Disposition - Disposition OB Disposition: Discharge to home Discharge Date: 12/03/22 Discharge Time: 14:06 I agree with the RN Medical Screening Exam: Yes Physician's MSE Comment: I have another seen nor examined the patient. Case reviewed; plan agreed upon as documented in EMR&OBIX.: Yes Diagnosis: RELATED CONDITIONS, UNSPECIFIED, THIRD TRIMESTER
== END 2022-12-03 14:06 | disposition home or self-care (01) ==
LOC: FBPOP 11:19
PROVIDERS: ATTEND Obstetrics & Gynecology
DX: O26.893 Other specified pregnancy related conditions, third trimester (principal); O46.93 Antepartum hemorrhage, unspecified, third trimester; O41.03X1 Oligohydramnios, third trimester, fetus 1; Z3A.30 30 weeks gestation of pregnancy; Z88.0 Allergy status to penicillin; Z88.2 Allergy status to sulfonamides; Z88.8 Allergy status to other drugs, medicaments and biological substances; Z79.82 Long term (current) use of aspirin
CPT/HCPCS: 59025; 76805; G0463; 99213